=== PATIENT | female | born 1990 | race Caucasian/White ===

== ENCOUNTER → 2016-10-30 | Outpatient (CLI) | payer BC, OTHER ==
[~2016-10-30] MED LIST: CYCL10TA6 PO; FAMO40TA6 PO; HYDR-5688 PO; LEVO175T PO; LVNIS40 SQ; PRENTAB26 PO; PRLSR20 PO; RANI300T PO
[2016-10-30 18:09] LABS: THYROID STIMULATING HORMONE 0.007 uIu/ml (0.300-4.500)
== END | disposition home or self-care (01) ==
LOC: C.LAB 16:33
PROVIDERS: ATTEND Internal Medicine Endocrinology, Diabetes & Metabolism
DX: E03.9 Hypothyroidism, unspecified (principal); E55.9 Vitamin D deficiency, unspecified; R00.2 Palpitations; Z3A.33 33 weeks gestation of pregnancy

== ENCOUNTER → 2017-01-05 | Outpatient (CLI) | payer BC, OTHER ==
[2017-01-05 18:49] LABS: BASO % 0.6 %; BASO ABS # 0.03 K/uL (0-0.2); COMPLETE YES; IG% 0.4 %; LYMPH ABS # 1.82 K/uL (1.2-3.4); MEAN CELL VOLUME 83.7 fL (80-100); MEAN CORPUSCULAR HEMOGLOBIN 30.2 pg (25-34); MEAN CORPUSCULAR HGB CONC 36.1 g/dl (32-36); MEAN PLATELET VOLUME 9.3 fL (7.4-10.4); MONO % 11.5 %; NEUT % 47.5 %; PLATELET COUNT 268 K/uL (130-400); RED BLOOD COUNT 4.54 M/uL (4.2-5.4); WHITE BLOOD COUNT 5.05 K/uL (4.8-10.8)
[2017-01-05 19:26] LABS: FERRITIN 16.1 ng/ml (8.0-388.0)
--- NOTE | 2017-01-21 09:17 | CODING QUERY MEDICAL NECESSITY ---
CQSUPPORTING DIAGNOSIS NEEDED A supporting diagnosis is required for the test/procedure performed on this patient in order for us to be reimbursed by the patient's insurance. Please provide a supporting diagnosis for the following test/procedure listed below next to the test name along with your signature. *If there is no additional diagnosis for this patient that would support the following test/procedure please document that below next to the test/procedure. Test(s)/Procedure(s) that require a supporting diagnosis: DOS 01/05/17 VITAMIN B12 TEST Provider Signature: Date: Thank you Sussy Tyson [employer] [facility] Once completed, please kindly fax back to [phone] For questions please call [phone]
== END | disposition home or self-care (01) ==
LOC: C.LAB 18:04
PROVIDERS: ATTEND Nurse Practitioner
DX: D64.9 Anemia, unspecified (principal)

== ENCOUNTER → 2017-01-05 | Outpatient (CLI) | payer BC, OTHER ==
[2017-01-05 19:42] LABS: BLOOD UREA NITROGEN 11 mg/dl (7-18); BUN/CREATININE RATIO 13.2 (10-20); CARBON DIOXIDE 29 mmol/L (21-32); CHLORIDE 108 mmol/L (98-107); CREATININE 0.85 mg/dl (0.60-1.20); GLUCOSE 80 mg/dl (70-99); POTASSIUM 4.1 mmol/L (3.5-5.1); SODIUM 145 mmol/L (136-145)
[2017-01-05 19:53] LABS: THYROID STIMULATING HORMONE 0.142 uIu/ml (0.300-4.500)
[2017-01-05 20:46] LABS: CALCIUM 9.3 mg/dl (8.5-10.1)
== END | disposition home or self-care (01) ==
LOC: C.LAB 18:06
PROVIDERS: ATTEND Internal Medicine Endocrinology, Diabetes & Metabolism
DX: E55.9 Vitamin D deficiency, unspecified (principal); R00.2 Palpitations

== ENCOUNTER → 2017-02-03 | Outpatient (CLI) | payer BC, OTHER ==
[2017-02-08 18:34] LABS: VIT E ALPHA-TOCOPHEROL 10.4 mg/L (5.7-19.9); VIT E BETA&GAMMA-TOCOPHEROL 2.1 mg/L (<=4.3)
--- NOTE | 2017-02-20 06:08 | CODING QUERY MEDICAL NECESSITY ---
CQSUPPORTING DIAGNOSIS NEEDED A supporting diagnosis is required for the test/procedure performed on this patient in order for us to be reimbursed by the patient's insurance. Please provide a supporting diagnosis for the following test/procedure listed below next to the test name along with your signature. *If there is no additional diagnosis for this patient that would support the following test/procedure please document that below next to the test/procedure. Test(s)/Procedure(s) that require a supporting diagnosis: DOS 02/03/17 VITAMIN D Provider Signature: Date: Thank you Sussy Tyson [employer] Once completed, please kindly fax back to [phone] For questions please call [phone]
== END | disposition home or self-care (01) ==
LOC: C.LAB 13:19
PROVIDERS: ATTEND Internal Medicine
DX: K52.9 Noninfective gastroenteritis and colitis, unspecified (principal); E55.9 Vitamin D deficiency, unspecified

== ENCOUNTER 2017-05-18 12:15 | Emergency (ER) | payer BC, OTHER ==
[~2017-05-18] VITALS: Ht 157.5 cm; Wt 87.0 kg
[~2017-05-18 12:15] MED LIST changes: -CYCL10TA6 PO; -HYDR-5688 PO; -PRLSR20 PO
[2017-05-18 12:22] VITALS: TEMP 36.4; Ht 157.5 cm; Wt 87.0 kg
[2017-05-18] MEDS ORDERED: PRLSR20 PO (12:27)
--- NOTE | 2017-05-18 13:33 | DIAGNOSTIC IMAGING REPORT ---
PELVIS 1 OR 2 VIEW ROUTINE CLINICAL HISTORY: 26 years-old Female presenting with L sacroilliac jt pain. TECHNIQUE: Single frontal view of the pelvis was obtained. COMPARISON: Correlation made to CT of the abdomen and pelvis from 06/13/2015. FINDINGS: Hip joints congruent. No significant degenerative change. No acute fracture or malalignment. Pubic symphysis and sacroiliac joints congruent. Specifically, the left sacroiliac joint is normal appearing. Normal lower lumbar spine. Moderate stool burden in the colon. IMPRESSION: No osseous abnormality of the pelvis. Specifically, normal-appearing sacroiliac joints. Electronically signed by: Rikki Gauthier M.D. 05/18/2017 1:32 PM Dictated Date/Time: 05/18/2017 1:30 PM
[2017-05-18] MEDS ORDERED: HYDR-5688 PO (14:16)
[2017-05-18] MEDS ORDERED: CYCL10TA6 PO (14:16)
[2017-05-18 14:23] VITALS: BP 113/73; PULSE 80; O2SAT 98
--- NOTE | 2017-05-19 07:19 | EMERGENCY ROOM VISIT NOTE ---
ED Visit Note First contact with patient: 12:38 Chief Complaint: Left hip pain. History of Present Illness: Ms. Berrios is a 26-year-old white female who ambulates into the ED complaining of left hip pain. Historically she reports she's no significant previous back injuries or surgeries. Patient reports she was feeling fine until last evening. She reports she bent down the pickup her daughter and felt a popping sensation over the posterior left pelvis area and developed severe back pain. She reports she was seen at a chiropractors office today who made multiple adjustments and suggested that she come into the emergency department for evaluation of a possible muscle or ligamentous injury. Currently she places her discomfort over the left sacroiliac joint. She describes her pain as a sharp sensation. She rates her discomfort 8/10. Her pain is nonradiating. Her pain worsens with all movement of the lumbar and sacroiliac joint movements including flexion, extension and lateral bending of the waist and palpation. She has not identified any alleviating factors related to the pain. She reports she has been taken ibuprofen without relief of her discomfort. She denies any associated symptoms including fevers, chills , sweats, recent trauma to this area, abdominal pain, nausea, vomiting, diarrhea , constipation, rectal bleeding, black/tarry stools, urinary symptoms, hematuria , vaginal bleeding, vaginal discharge, genital paresthesias, bowel and bladder dysfunction, lower extremity weakness/numbness/tingling. Review of Systems: As noted above in history of present illness. 8 body systems were reviewed and found to be negative as noted above. Past Medical History: As previously noted and pulmonary embolism, polycystic ovary syndrome, hypothyroidism, hyperinsulinemia, gastroparesis, pancreatitis, anxiety and status post cholecystectomy. Current Medications: Synthroid, Zantac, Pepcid, Prilosec. Allergies to Medications: Penicillin, metoclopramide. Social History: Patient feels safe in her home environment; she denies tobacco use. Physical Examination: Vital Signs: Date Time Temp Pulse Resp B/P (MAP) Pulse Ox O2 Delivery O2 Flow Rate FiO2 05/18/17 14:23 80 18 113/73 98 05/18/17 12:22 36.4 100 18 130/85 100 Room Air GENERAL: 26-year-old female in mild to moderate distress due to pain, nontoxic- appearing, afebrile and hemodynamically stable. NEUROLOGICAL: Awake, alert and oriented to person, place and time. Answering questions appropriately and following commands. Normal gait. No focal motor or sensory deficits. SKIN: Warm, dry and pink. No soft tissue eruptions or trauma noted. BACK: No tenderness over the bony thoracic or lumbar spine. Mild tenderness and muscle spasm over the left lumbar paraspinous culture. Moderate tenderness over the left sacroiliac joint without bony deformity, bony crepitus, swelling or erythema. Decreased range of motion in all movements at the waist due to pain. Negative straight leg raise test. No CVA tenderness. THORAX: Lungs sounds are clear to auscultation and equal bilaterally with symmetrical chest wall. ABDOMEN: Flat, soft and nontender. Positive bowel sounds in all quadrants. No guarding, rigidity or organomegaly. LOWER EXTREMITIES: No deformity. No shortening or malrotation. No tenderness , inflammation, erythema or edema around the left hip. She had full range of motion of the hips without pain. Moves all extremities well on command and with purpose. 2+ patellar and Achilles tendon reflexes intact and equal bilaterally. 4/5 muscle strength in hip flexion, extension, abduction and abduction, knee flexion and extension, plantar flexion and dorsiflexion of the ankles. Distal pulses and capillary refill are intact. Patient was able to do sting was slight sensations to all dermatomes of the feet. ED Course: Patient is assessed as noted above. Patient's medication list was reviewed. Pelvis X-Rays: Were read by myself and the radiologist showing no acute fractures or dislocations. Radiologist specifically reported he said no disease processes around the sacroiliac joints. Patient was educated about today's findings and instructed on her treatment plan ; she verbalized understanding and agreement with this plan. Clinical Impression: Left sacroiliac joint pain. Lumbar paraspinous muscle spasm. Decision-Making: Initially my differential diagnosis I considered muscle strain , muscle spasm, disc herniation, septic hip, bursitis and other causes. Disposition: Patient discharged home accompanied by female friends; prior to departure she was reassessed and subjectively reported she was feeling the same and rated her discomfort 8/10. Plan: Comfort measures were discussed with the patient including ice, sliding pain scale of ibuprofen, acetaminophen and [place], a prescription for muscle relaxants ; Flexeril, proper lifting and moving techniques. Patient was given appropriate precautions for narcotic use and her name was checked in the state database and no red flags were noted. Patient was encouraged to contact her PCP and request follow-up care and treatment. Patient was encouraged return ED for worsening/uncontrolled pain, fevers, abdominal pain, genital paresthesias, bowel and bladder dysfunction, lower extremity weakness/numbness/tingling or any new/concerning symptoms.
== END 2017-05-18 14:20 | disposition home or self-care (01) ==
LOC: C.EDB 12:19 → C.EDD 14:20
DX: M53.3 Sacrococcygeal disorders, not elsewhere classified (principal); Z86.711 Personal history of pulmonary embolism; E28.2 Polycystic ovarian syndrome; E03.9 Hypothyroidism, unspecified; E16.1 Other hypoglycemia; K31.84 Gastroparesis; F41.9 Anxiety disorder, unspecified; Z90.49 Acquired absence of other specified parts of digestive tract; Z79.899 Other long term (current) drug therapy

== ENCOUNTER 2017-08-04 08:26 | Day surgery (SDC) | payer BC, OTHER ==
[~2017-08-04 08:26] MED LIST changes: +HYDR-5688 PO; -LVNIS40 SQ; -PRENTAB26 PO; +PRLSR20 PO
[2017-10-30] MEDS ORDERED: METF500T5 PO (08:30)
[2017-10-30] MEDS ORDERED: ERGO500037 PO (08:30)
[2017-10-30] MEDS ORDERED: HYOS1TAB PO (08:30)
[2017-10-30] MEDS ORDERED: NORE0.3526 PO (08:30)
== END 2017-11-19 10:14 | disposition home or self-care (01) ==
LOC: C.MTU 08:26
PROVIDERS: ATTEND Internal Medicine
DX: R19.7 Diarrhea, unspecified (principal); Z53.8 Procedure and treatment not carried out for other reasons

== ENCOUNTER → 2017-10-12 | Outpatient (CLI) | payer OTHER ==
[2017-10-12 13:43] LABS: ALBUMIN 4.2 gm/dl (3.4-5.0); ALT/SGPT 25 U/L (12-78); AST/SGOT 16 U/L (15-37); BLOOD UREA NITROGEN 8 mg/dl (7-18); CALCIUM 9.4 mg/dl (8.5-10.1); CARBON DIOXIDE 26 mmol/L (21-32); CREATININE 0.85 mg/dl (0.60-1.20); GLUCOSE 83 mg/dl (70-99); GLUCOSE,FASTING 83 mg/dl (70-99); POTASSIUM 3.5 mmol/L (3.5-5.1); SODIUM 136 mmol/L (136-145)
[2017-10-12 13:52] LABS: ALKALINE PHOSPHATASE 93 U/L (45-117); CHOLESTEROL 171 mg/dl (0-200); LDL CHOLESTEROL CALCULATED 93 mg/dl; TOTAL PROTEIN 8.1 gm/dl (6.4-8.2)
== END | disposition home or self-care (01) ==
LOC: C.LAB1850 11:40
PROVIDERS: ATTEND Obstetrics & Gynecology
DX: N92.6 Irregular menstruation, unspecified (principal); E28.2 Polycystic ovarian syndrome; E03.9 Hypothyroidism, unspecified; E55.9 Vitamin D deficiency, unspecified

== ENCOUNTER → 2017-10-30 | Day surgery (SDC) | payer OTHER ==
[~2017-10-30] VITALS: Ht 157.5 cm; Wt 89.0 kg
[~2017-10-30] MED LIST changes: +COSYNTROPIN INJ 250 MCG in SYRINGE 0 ML IM SCH; +ERGO500037 PO; +HYOS1TAB PO; +METF500T5 PO; +NORE0.3526 PO
[2017-10-30 08:23] VITALS: BP 109/73; PULSE 86; TEMP 36.3; O2SAT 99; Ht 157.5 cm; Wt 89.0 kg
[2017-10-30 09:04] VITALS: BP 102/67; PULSE 69; TEMP 37; O2SAT 98
[2017-10-30 09:37] VITALS: BP 117/71; PULSE 78; TEMP 37.1; O2SAT 100
== END | disposition home or self-care (01) ==
LOC: C.MTU 08:07
PROVIDERS: ATTEND Internal Medicine Endocrinology, Diabetes & Metabolism
DX: R53.83 Other fatigue (principal); E03.9 Hypothyroidism, unspecified; E28.2 Polycystic ovarian syndrome

== ENCOUNTER → 2018-01-05 | Outpatient (CLI) | payer OTHER ==
[~2018-01-05] MED LIST changes: -COSYNTROPIN INJ 250 MCG in SYRINGE 0 ML IM SCH; -HYDR-5688 PO
== END | disposition home or self-care (01) ==
LOC: C.LAB1850 09:16
PROVIDERS: ATTEND Internal Medicine Endocrinology, Diabetes & Metabolism
DX: E28.2 Polycystic ovarian syndrome (principal); E03.9 Hypothyroidism, unspecified

== ENCOUNTER → 2018-01-11 | Outpatient (CLI) | payer OTHER | END | disposition home or self-care (01) | LOC: C.LAB1850 16:23 | PROVIDERS: ATTEND Internal Medicine Endocrinology, Diabetes & Metabolism | DX: E55.9 Vitamin D deficiency, unspecified (principal) ==

== ENCOUNTER 2020-08-08 21:00 | Inpatient (IN) ==
[2020-08-08] MEDS ORDERED: SODIUM CHLORIDE 0.9% 1000ML 1,000 ML IV ONE (21:35)
--- NOTE | 2020-08-08 22:22 | Emergency Department Note ---
History of Present Illness General Chief complaint: Flank Pain Stated complaint: flank pain, hx blood clots, pending covid Time Seen by Provider: 08/08/20 21:11 History of Present Illness Maximum Pain Intensity: 6 This patient is a 29-year-old female who presents ambulatory to the emergency department for evaluation of left-sided chest pain that has been getting progressively worse over the last several days. The pain is on the left and radiates to the left ribs. She has not taken anything for the discomfort. The pain is worse with deep inspiration. She denies any cough or fever. She currently has a Covid test pending. She denies any leg pain or trauma. No recent travel Home Medications Medication Instructions Recorded Confirmed Type bupropion HCl [Wellbutrin XL] 300 mg PO QAM 03/03/19 08/08/20 History cyclobenzaprine 10 mg PO BID PRN 03/03/19 08/08/20 History famotidine 40 mg PO HS 03/03/19 08/08/20 History fluocinonide 1 applic TOPICAL BID PRN 03/03/19 08/08/20 History hyoscyamine sulfate 0.25 mg PO QID PRN 03/03/19 08/08/20 History ketoconazole 1 applic TOPICAL DAILY 03/03/19 08/08/20 History medroxyprogesterone 150 mg IM DIRECTED 03/03/19 08/08/20 History multivitamin 1 tab PO DAILY 03/03/19 08/08/20 History omeprazole 20 mg PO BID 03/03/19 08/08/20 History gabapentin 300 mg capsule 600 mg PO BID cap 09/08/19 08/08/20 History naproxen 500 mg tablet 500 mg PO BID 09/08/19 08/08/20 History ondansetron 4 mg PO Q6H PRN #15 tab 09/16/19 08/08/20 Rx Levoxyl 150 mcg tablet 150 mcg PO DAILY #30 tab NS 04/04/20 08/08/20 Rx cholecalciferol (vitamin D3) 1,250 mcg PO WK 07/12/20 08/08/20 History ipratropium bromide 42 mcg (0.06 2 spray INTRANASAL DAILY #15 ml 07/20/20 08/08/20 Rx %) nasal spray cefdinir 300 mg PO Q12 08/08/20 08/08/20 History Allergies Allergy/AdvReac Type Severity Reaction Status Date / Time egg Allergy Severe ANAPHYLAXIS Verified 08/08/20 22:06 Penicillins Allergy Intermediate RASH Verified 08/08/20 22:06 Sulfa (Sulfonamide Allergy Mild Rash Verified 08/08/20 22:06 Antibiotics) metoclopramide AdvReac Mild SHAKY Verified 08/08/20 22:06 Past Med/Surg History Medical History Abnormal menses Acute pancreatitis (12/16/12) Anemia Ankylosing spondylitis Class 2 obesity in adult Depressive disorder, not elsewhere classified (12/16/12) Encounter for visit Encounter for routine gynecological examination with Papanicolaou smear of cervix Fatigue Gastro-esophageal reflux disease with esophagitis (12/16/12) Gastroparesis Jess's disease High risk medication use History of pulmonary embolus (PE) Hypothyroidism Irritable bowel syndrome (12/16/12) Labor established (08/02/13) Laryngopharyngeal reflux Obesity Other pulmonary embolism and infarction (12/16/12) Palpitations PCOS (polycystic ovarian syndrome) Polycystic ovaries (12/16/12) Sensorineural hearing loss (SNHL) of right ear with unrestricted hearing of left ear Tachycardia Vitamin D deficiency Vulvovaginitis Surgical History History of arthroscopy History of knee surgery Meniscus repair left - 2016,2019 Meniscus repair right - 2009, 2011 History of surgery on wrist History of tooth extraction Hx of cholecystectomy Family History Grandmother (Maternal) Breast cancer Mother Hypertension Asthma Grandmother Hypertension Cancer Father Hearing loss Other Coronary heart disease Diabetes Dyslipidemia No family history of adverse response to anesthesia No family history of bleeding disorder No pertinent family history in first degree relatives Social History Smoking Status: Never smoker Second Hand Exposure: No; Hx Alcohol Use: No Hx Substance Use: No Preferred Language: Pashto Communication Ability: Effective Advertising Operations Coordinator Required: No Beliefs That Will Affect Care: None marital status: Current Living Situation: Spouse current occupational status: employed 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 Feels Safe at Home: Yes Assistive Devices: None Review of Systems A total of 10 systems reviewed and were otherwise negative Physical Exam Vital Signs Vital Signs - 24 hr 08/08/20 21:02 Temperature 36.9 C Temperature Source Oral Pulse Rate 122 H Respiratory Rate 18 Respiratory Effort / Characteristics Non-Labored Spontaneous Respiratory Depth Normal Respiratory Pattern Regular Blood Pressure 161/114 H Blood Pressure Mean 129 Blood Pressure Position Sitting Pulse Oximetry 97 Oxygen Delivery Method Room Air Sepsis Recent Fever Within 48 Hours No Sepsis New/Unexplained Change in Mental Status N/A Sepsis Action Taken by Nursing No Action Required Constitutional WD/WN, vitals as above Eyes EOM intact bilaterally ENMT external ear and nose normal, oropharynx normal Neck trachea midline Respiratory normal respiratory effort, lungs clear to auscultation Cardiovascular Rate/Rhythm: + tachycardic no murmur noted Gastrointestinal (Abdomen) normal bowel sounds, soft, nontender, no hepatosplenomegaly Musculoskeletal no cyanosis or clubbing, extremities motor strength 5/5 Skin no rashes, warm and dry Neurologic Alert and oriented x3. No focal motor deficits. Psychiatric Acting appropriately Course Course Patient was seen and examined Vital signs including blood pressure were reviewed medications list was verified with patient Labs were obtained, and a saline lock was established An order was placed for continuous cardiac monitoring. The monitor shows a rate of a rate of 109 bpm with sinus tachycardia rhythm. Imaging was performed the patient was Reassessed. We discussed her work-up thus far. At this point, the patient has imaging studies pending. The case was signed out to my colleague, Angel Alonso PA-C. Please see his note for disposition. Administered Medications Acetaminophen (Acetaminophen 325 Mg Tab) 650 mg PO Q4H PRN PRN Reason: pain/fever Stop: 09/08/20 05:11 Last Admin: 08/10/20 10:53 Dose: 650 mg Documented by: [id number] Admin: 08/10/20 06:01 Dose: 650 mg Documented by: [id number] Admin: 08/09/20 20:54 Dose: 650 mg Documented by: [id number] Bupropion HCl (Bupropion Xl 300 Mg Tabcr) 300 mg PO QAM [facility] Stop: 09/08/20 08:59 Last Admin: 08/10/20 08:33 Dose: 300 mg Documented by: [id number] Admin: 08/09/20 08:36 Dose: 300 mg Documented by: [id number] Calcium Carbonate (Calcium Carbonate 500 Mg Chewable Tab) 500 mg PO Q8 PRN PRN Reason: Indigestion Stop: 09/08/20 08:24 Last Admin: 08/09/20 08:35 Dose: 500 mg Documented by: [id number] Cefdinir (Cefdinir 300 Mg Cap) 300 mg PO Q12 SYED Stop: 08/19/20 08:59 Last Admin: 08/10/20 08:32 Dose: 300 mg Documented by: [id number] Admin: 08/09/20 20:42 Dose: 300 mg Documented by: [id number] Admin: 08/09/20 08:35 Dose: 300 mg Documented by: [id number] Famotidine (Famotidine 40 Mg Tablet) 40 mg PO HS SYED Stop: 09/08/20 20:59 Last Admin: 08/09/20 20:42 Dose: 40 mg Documented by: [id number] Gabapentin (Gabapentin 300 Mg Cap) 600 mg PO BID SYED Stop: 09/08/20 08:59 Last Admin: 08/10/20 08:32 Dose: 600 mg Documented by: [id number] Admin: 08/09/20 20:42 Dose: 600 mg Documented by: [id number] Admin: 08/09/20 08:36 Dose: 600 mg Documented by: [id number] Ipratropium [place] (Ipratropium [place] Nasal [place] 0.06% 15ml) 2 sprays NA DAILY SYED Stop: 09/08/20 08:59 Last Admin: 08/10/20 08:25 Dose: Not Given Documented by: [id number] Admin: 08/09/20 08:36 Dose: Not Given Documented by: [id number] Levothyroxine Sodium (Levothyroxine Sodium 150 Mcg Tablet) 150 mcg PO DAILYBB SYED Stop: 09/08/20 06:29 Last Admin: 08/10/20 05:59 Dose: 150 mcg Documented by: [id number] Admin: 08/09/20 05:31 Dose: 150 mcg Documented by: [id number] Morphine Sulfate (Morphine Sulfate 2 Mg/Ml Carp) 2 mg IV Q4H PRN PRN Reason: Pain Stop: 08/23/20 05:11 Last Admin: 08/09/20 22:19 Dose: 2 mg Documented by: [id number] Ondansetron HCl (Ondansetron Inj 2 Mg/Ml 2 Ml Vial) 4 mg IV Q4H PRN PRN Reason: Nausea Stop: 09/08/20 05:16 Last Admin: 08/10/20 08:32 Dose: 4 mg Documented by: [id number] Admin: 08/10/20 03:25 Dose: 4 mg Documented by: [id number] Admin: 08/09/20 20:55 Dose: 4 mg Documented by: [id number] Admin: 08/09/20 08:35 Dose: 4 mg Documented by: [id number] Admin: 08/09/20 05:32 Dose: 4 mg Documented by: [id number] Pantoprazole Sodium (Pantoprazole 40 Mg Tab) 40 mg PO BID [facility] Stop: 09/08/20 08:59 Last Admin: 08/10/20 08:32 Dose: 40 mg Documented by: [id number] Admin: 08/09/20 20:43 Dose: 40 mg Documented by: [id number] Admin: 08/09/20 08:35 Dose: 40 mg Documented by: [id number] Rivaroxaban (Rivaroxaban 15 Mg Tab) 15 mg PO BIDM [facility] Stop: 08/30/20 16:59 Last Admin: 08/10/20 08:32 Dose: 15 mg Documented by: [id number] Admin: 08/09/20 17:16 Dose: 15 mg Documented by: [id number] Discontinued Medications Calcium Carbonate (Calcium Carbonate 500 Mg Chewable Tab) Confirm Administered Dose 500 mg .ROUTE .STK-MED ONE Stop: 08/09/20 08:32 Last Admin: 08/09/20 08:37 Dose: Not Given Documented by: [id number] Heparin Sodium (Porcine) (Heparin Sod (Porcine) 1000 Unit/Ml 10 Ml Vial) Confirm Administered Dose 10,000 units .ROUTE .STK-MED ONE Stop: 08/09/20 01:11 Last Admin: 08/09/20 01:15 Dose: 5,000 units Documented by: [id number] Cosigned by: [id number] Heparin Sodium/Dextrose (Heparin Iv Standard With Bolus) 1 ea IV NOW STA; Protocol Stop: 08/09/20 01:02 Last Admin: 08/09/20 01:15 Dose: 1 ea Documented by: [id number] Sodium Chloride (Nss 1000ml) 1,000 mls @ 999 mls/hr IV .Q1H1M ONE Stop: 08/08/20 22:35 Last Infusion: 08/08/20 23:20 Dose: 0 mls/hr Documented by: [id number] Admin: 08/08/20 22:12 Dose: 999 mls/hr Documented by: [id number] Heparin Sodium/Dextrose (Heparin Sodium/Dextrose) 25,000 units in 500 mls @ 19 mls/hr IV .Q24H SYED; Protocol Stop: 08/09/20 17:00 Last Titration: 08/09/20 17:16 Dose: 0 units/hr, 0 mls/hr Documented by: [id number] Cosigned by: [id number] Titration: 08/09/20 10:30 Dose: 950 units/hr, 19 mls/hr Documented by: [id number] Cosigned by: [id number] Titration: 08/09/20 08:00 Dose: 0 units/hr, 0 mls/hr Documented by: [id number] Cosigned by: [id number] Titration: 08/09/20 06:54 Dose: 1,200 units/hr, 24 mls/hr Documented by: [id number] Cosigned by: [id number] Admin: 08/09/20 01:29 Dose: 1,200 units/hr, 24 mls/hr Documented by: [id number] Cosigned by: [id number] Sodium Chloride (Nss 1000ml) 1,000 mls @ 80 mls/hr IV .[id number] SYED Stop: 09/08/20 08:29 Last Infusion: 08/10/20 11:32 Dose: 0 mls/hr Documented by: [id number] Admin: 08/10/20 08:33 Dose: 80 mls/hr Documented by: [id number] Infusion: 08/10/20 08:33 Dose: 80 mls/hr Documented by: [id number] Admin: 08/09/20 20:55 Dose: 80 mls/hr Documented by: [id number] Infusion: 08/09/20 20:55 Dose: 80 mls/hr Documented by: [id number] Admin: 08/09/20 08:36 Dose: 80 mls/hr Documented by: [id number] Prochlorperazine 5 mg/ Syringe 5 mls @ 5 mls/min IV ONE ONE Stop: 08/10/20 09:01 Last Admin: 08/10/20 10:49 Dose: 5 mls/min Documented by: [id number] Ioversol (Optiray 320 125ml) 119 ml IV ONCE ONE Stop: 08/08/20 22:59 Last Admin: 08/08/20 22:58 Dose: 119 ml Documented by: [id number] Miscellaneous (Heparin Drip - Stop Order) 1 ea N/A 1700 ONE Stop: 08/09/20 17:01 Last Admin: 08/09/20 17:16 Dose: 1 ea Documented by: [id number] Morphine Sulfate (Morphine Sulfate 4 Mg/Ml 1 Ml Carp\Vial) 4 mg IV NOW STA Stop: 08/09/20 00:27 Last Admin: 08/09/20 00:43 Dose: 4 mg Documented by: [id number] Ondansetron HCl (Ondansetron Inj 2 Mg/Ml 2 Ml Vial) 4 mg IV NOW STA Stop: 08/09/20 00:27 Last Admin: 08/09/20 00:43 Dose: 4 mg Documented by: [id number] Potassium Chloride (Potassium Chloride Crtab 20 Meq Tabcr) 40 meq PO NOW STA Stop: 08/09/20 05:13 Last Admin: 08/09/20 05:31 Dose: 40 meq Documented by: [id number] Prednisone (Prednisone 20 Mg Tab) 20 mg PO ONE ONE Stop: 08/10/20 09:01 Last Admin: 08/10/20 10:49 Dose: 20 mg Documented by: [id number] Medical Decision Making Medical Records Attestation: I reviewed the patient's medical records. Home Medications Current Medication List: was personally reviewed by me Laboratory Data Attestation: I reviewed the patient's lab results. Result diagrams: 08/10/20 07:38 08/10/20 07:38 Lab Results 08/08/20 08/08/20 08/08/20 Range/Units 22:07 22:07 22:07 WBC 8.73 (4.8-10.8) K/uL RBC 4.83 (4.2-5.4) M/uL Hgb 15.0 (12.0-16.0) g/dL Hct 42.5 (37-47) % MCV 88.0 (80-100) fL MCH 31.1 (25-34) pg MCHC 35.3 (32-36) g/dL RDW Std Deviation 39.9 (36.4-46.3) fL RDW Coeff of Axel 12.5 (11.5-14.5) % Plt Count 282 (130-400) K/uL MPV 9.7 (7.4-10.4) fL Immature Gran % (Auto) 0.5 % Neut % (Auto) 68.6 % Lymph % (Auto) 19.5 % [place] % (Auto) 9.5 % Eos % (Auto) 1.7 % Baso % (Auto) 0.2 % Neut # (Auto) 5.99 (1.4-6.5) K/uL Lymph # (Auto) 1.70 (1.2-3.4) K/uL [place] # (Auto) 0.83 H (0.11-0.59) K/uL Eos # (Auto) 0.15 (0-0.5) K/uL Baso # (Auto) 0.02 (0-0.2) K/uL Immature Gran # (Auto) 0.04 H (0.00-0.02) K/uL PT 11.0 (9.0-12.0) Seconds INR 1.0 (0.9-1.1) APTT (21.0-31.0) Seconds PTT Ratio Sodium 141 (136-145) mmol/L Potassium 3.4 L (3.5-5.1) mmol/L Chloride 107 (98-107) mmol/L Carbon Dioxide 27 (21-32) mmol/L Anion Gap 7.0 (3-11) BUN 14 (7-18) mg/dl Creatinine 1.05 (0.6-1.2) mg/dl Est Cr Clr Drug Dosing 82.1 ml/min Est GFR ( Amer) 82.5 Est GFR (Non-Af Amer) 71.2 BUN/Creatinine Ratio 13.2 (10-20) Glucose 94 (70-99) mg/dl Calcium 9.8 (8.5-10.1) mg/dl Magnesium 2.3 (1.8-2.4) mg/dl Total Bilirubin 2.9 H (0.2-1) mg/dl AST 14 L (15-37) U/L ALT 28 (12-78) U/L Alkaline Phosphatase 109 (45-117) U/L Troponin I < 0.015 (0-0.045) ng/ml Total Protein 8.4 H (6.4-8.2) gm/dl Albumin 4.4 (3.4-5.0) gm/dl Globulin 4.0 (2.5-4.0) gm/dl Albumin/Globulin Ratio 1.1 (0.9-2) HCG, Qual (Negative) Urine Color Urine Appearance (Clear) Urine pH (4.5-7.5) Ur Specific [place] (1.000-1.030) Urine Protein (Negative) Urine Glucose (UA) (Negative) Urine Ketones (Negative) Urine Blood (Negative) Urine Nitrite (Negative) Urine Bilirubin (Negative) Urine Urobilinogen (Negative) Ur Leukocyte Esterase (Negative) Urine Opiates Screen (Neg) Ur Methadone, Qual (Neg) Urine Barbiturates (Neg) Ur Phencyclidine (PCP) (Neg) U Amphetamin/Meth Scrn (Neg) MDMA (Ecstasy) Screen (Neg) U Benzodiazepines Scrn (Neg) Ur Cocaine Metabolite (Neg) U Marijuana (THC) Screen (Neg) SARS-CoV-2 Ag (Rapid) (Negative) 08/08/20 08/08/20 08/09/20 Range/Units 22:07 22:08 00:45 WBC (4.8-10.8) K/uL RBC (4.2-5.4) M/uL Hgb (12.0-16.0) g/dL Hct (37-47) % MCV (80-100) fL MCH (25-34) pg MCHC (32-36) g/dL RDW Std Deviation (36.4-46.3) fL RDW Coeff of Axel (11.5-14.5) % Plt Count (130-400) K/uL MPV (7.4-10.4) fL Immature Gran % (Auto) % Neut % (Auto) % Lymph % (Auto) % [place] % (Auto) % Eos % (Auto) % Baso % (Auto) % Neut # (Auto) (1.4-6.5) K/uL Lymph # (Auto) (1.2-3.4) K/uL [place] # (Auto) (0.11-0.59) K/uL Eos # (Auto) (0-0.5) K/uL Baso # (Auto) (0-0.2) K/uL Immature Gran # (Auto) (0.00-0.02) K/uL PT (9.0-12.0) Seconds INR (0.9-1.1) APTT (21.0-31.0) Seconds PTT Ratio Sodium (136-145) mmol/L Potassium (3.5-5.1) mmol/L Chloride (98-107) mmol/L Carbon Dioxide (21-32) mmol/L Anion Gap (3-11) BUN (7-18) mg/dl Creatinine (0.6-1.2) mg/dl Est Cr Clr Drug Dosing ml/min Est GFR ( Amer) Est GFR (Non-Af Amer) BUN/Creatinine Ratio (10-20) Glucose (70-99) mg/dl Calcium (8.5-10.1) mg/dl Magnesium (1.8-2.4) mg/dl Total Bilirubin (0.2-1) mg/dl AST (15-37) U/L ALT (12-78) U/L Alkaline Phosphatase (45-117) U/L Troponin I (0-0.045) ng/ml Total Protein (6.4-8.2) gm/dl Albumin (3.4-5.0) gm/dl Globulin (2.5-4.0) gm/dl Albumin/Globulin Ratio (0.9-2) HCG, Qual Negative (Negative) Urine Color Yellow Urine Appearance Clear (Clear) Urine pH 7.0 (4.5-7.5) Ur Specific [place] > 1.045 H (1.000-1.030) Urine Protein Negative (Negative) Urine Glucose (UA) Negative (Negative) Urine Ketones Negative (Negative) Urine Blood Negative (Negative) Urine Nitrite Negative (Negative) Urine Bilirubin Negative (Negative) Urine Urobilinogen Negative (Negative) Ur Leukocyte Esterase Negative (Negative) Urine Opiates Screen Neg (Neg) Ur Methadone, Qual Neg (Neg) Urine Barbiturates Neg (Neg) Ur Phencyclidine (PCP) Neg (Neg) U Amphetamin/Meth Scrn Neg (Neg) MDMA (Ecstasy) Screen Neg (Neg) U Benzodiazepines Scrn Neg (Neg) Ur Cocaine Metabolite Neg (Neg) U Marijuana (THC) Screen Neg (Neg) SARS-CoV-2 Ag (Rapid) (Negative) 08/09/20 08/09/20 Range/Units 01:17 01:23 WBC (4.8-10.8) K/uL RBC (4.2-5.4) M/uL Hgb (12.0-16.0) g/dL Hct (37-47) % MCV (80-100) fL MCH (25-34) pg MCHC (32-36) g/dL RDW Std Deviation (36.4-46.3) fL RDW Coeff of Axel (11.5-14.5) % Plt Count (130-400) K/uL MPV (7.4-10.4) fL Immature Gran % (Auto) % Neut % (Auto) % Lymph % (Auto) % [place] % (Auto) % Eos % (Auto) % Baso % (Auto) % Neut # (Auto) (1.4-6.5) K/uL Lymph # (Auto) (1.2-3.4) K/uL [place] # (Auto) (0.11-0.59) K/uL Eos # (Auto) (0-0.5) K/uL Baso # (Auto) (0-0.2) K/uL Immature Gran # (Auto) (0.00-0.02) K/uL PT (9.0-12.0) Seconds INR (0.9-1.1) APTT 25.4 (21.0-31.0) Seconds PTT Ratio 0.9 Sodium (136-145) mmol/L Potassium (3.5-5.1) mmol/L Chloride (98-107) mmol/L Carbon Dioxide (21-32) mmol/L Anion Gap (3-11) BUN (7-18) mg/dl Creatinine (0.6-1.2) mg/dl Est Cr Clr Drug Dosing ml/min Est GFR ( Amer) Est GFR (Non-Af Amer) BUN/Creatinine Ratio (10-20) Glucose (70-99) mg/dl Calcium (8.5-10.1) mg/dl Magnesium (1.8-2.4) mg/dl Total Bilirubin (0.2-1) mg/dl AST (15-37) U/L ALT (12-78) U/L Alkaline Phosphatase (45-117) U/L Troponin I (0-0.045) ng/ml Total Protein (6.4-8.2) gm/dl Albumin (3.4-5.0) gm/dl Globulin (2.5-4.0) gm/dl Albumin/Globulin Ratio (0.9-2) HCG, Qual (Negative) Urine Color Urine Appearance (Clear) Urine pH (4.5-7.5) Ur Specific [place] (1.000-1.030) Urine Protein (Negative) Urine Glucose (UA) (Negative) Urine Ketones (Negative) Urine Blood (Negative) Urine Nitrite (Negative) Urine Bilirubin (Negative) Urine Urobilinogen (Negative) Ur Leukocyte Esterase (Negative) Urine Opiates Screen (Neg) Ur Methadone, Qual (Neg) Urine Barbiturates (Neg) Ur Phencyclidine (PCP) (Neg) U Amphetamin/Meth Scrn (Neg) MDMA (Ecstasy) Screen (Neg) U Benzodiazepines Scrn (Neg) Ur Cocaine Metabolite (Neg) U Marijuana (THC) Screen (Neg) SARS-CoV-2 Ag (Rapid) Negative (Negative) Imaging Data Attestation: I personally reviewed and interpreted this imaging study as follows: Radiologist's Impression: CT chest for PE ECG Data Attestation: I personally reviewed and interpreted this ECG as follows: Indication: + chest pain Rate (beats per minute): 106 Rhythm: + sinus tachycardia Additional Comments: no ischemia, or ectopy. No change when compared to prior study in 2019 MDM Narrative Differential diagnosis: Bronchitis, pneumonia, PE, infectious etiology, gastritis, UTI, ureteral stone, bowel obstruction, pancreatitis, among others were considered This patient is a 29-year-old female resents emergency department with main complaint of left-sided chest pain and left upper abdominal pain. On exam, she was tachycardic. She was not hypoxic. She does a history of PE. Work-up was performed. She was put on a radiation monitor. An EKG was performed and shows a sinus tachycardia. Troponin was negative. Labs were fairly unremarkable. Given her history, I was concerned for possible infectious etiology, pulmonary embolus or ureteral stone. Imaging was performed and is at this point pending. Please see Angel Alonso's note for diagnosis and disposition Impression & Plan Left-sided chest pain, Left upper quadrant abdominal pain Discharge Plan Visit Data Chief Complaint: Flank Pain Stated Complaint: flank pain, hx blood clots, pending covid ED Provider: Robbin Vizcaino ED Midlevel Provider: Angel Alonso Discharge Problem: Left-sided chest pain, Left upper quadrant abdominal pain Patient Disposition: Admitted As Inpatient Condition: Good Discharge Instructions Interventions: ED Discharge Assessment Last Done: 08/09/20 04:13
[2020-08-08 22:25] LABS: Basophils # (auto) 0.02 K/uL (0-0.2); Basophils % (auto) 0.2 %; Eosinophils # (auto) 0.15 K/uL (0-0.5); Eosinophils % (auto) 1.7 %; Hematocrit (blood only) 42.5 % (37-47); Immature Granulocytes # (auto) 0.04 K/uL (0.00-0.02); Immature Granulocytes % (auto) 0.5 %; Lymphocytes % (auto) 19.5 %; Mean Corpuscular Hemoglobin 31.1 pg (25-34); Mean Corpuscular Hgb Conc 35.3 g/dL (32-36); Mean Platelet Volume 9.7 fL (7.4-10.4); Monocytes # (auto) 0.83 K/uL (0.11-0.59); Monocytes % (auto) 9.5 %; Neutrophils # (auto) 5.99 K/uL (1.4-6.5); Neutrophils % (auto) 68.6 %; Platelet Count 282 K/uL (130-400); RDW Coefficient of Variation 12.5 % (11.5-14.5); RDW Standard Deviation 39.9 fL (36.4-46.3); Red Blood Count 4.83 M/uL (4.2-5.4); White Blood Count 8.73 K/uL (4.8-10.8)
[2020-08-08 22:40] LABS: Pregnancy Test, Serum Negative (Negative)
[2020-08-08 22:44] LABS: Alanine Aminotransferase 28 U/L (12-78); Albumin Level 4.4 gm/dl (3.4-5.0); Aspartate Aminotransferase 14 U/L (15-37); BUN Creatinine Ratio 13.2 (10-20); Blood Urea Nitrogen 14 mg/dl (7-18); Calcium 9.8 mg/dl (8.5-10.1); Carbon Dioxide 27 mmol/L (21-32); Chloride 107 mmol/L (98-107); Creatinine Clr Calc Pharmacy 82.1 ml/min; Est GFR (African American) 82.5; Est GFR (Non-African American) 71.2; Glucose 94 mg/dl (70-99); Magnesium 2.3 mg/dl (1.8-2.4); Potassium 3.4 mmol/L (3.5-5.1); Sodium 141 mmol/L (136-145)
[2020-08-08 22:49] LABS: Albumin Globulin Ratio 1.1 (0.9-2); Alkaline Phosphatase 109 U/L (45-117); Bilirubin,Total 2.9 mg/dl (0.2-1); Total Protein 8.4 gm/dl (6.4-8.2); Troponin I < 0.015 ng/ml (0-0.045)
[2020-08-08] MEDS ORDERED: OPTIRAY 320 125ml IV ONE (22:58)
[2020-08-09 00:07] LABS: Amphetamines+Metham, Urine Neg (Neg); Barbiturates, Urine Neg (Neg); Benzodiazepine, Urine Neg (Neg); Cocaine, Urine Neg (Neg); MDMA (Ecstacy), Urine Neg (Neg); Methadone, Urine Neg (Neg); Opiate, Urine Neg (Neg); Phencyclidine, Urine Neg (Neg)
[2020-08-09] MEDS ORDERED: ONDANSETRON INJ 2 MG/ML 2 ML VIAL IV STA (00:26)
[2020-08-09] MEDS ORDERED: MoRPHine SULFATE 4 MG/ML 1 ML CARP\\VIAL IV STA (00:26)
[2020-08-09 00:54] LABS: Appearance Urine Clear (Clear); Bilirubin Urine Negative (Negative); Blood Urine Negative (Negative); Color Urine Yellow; Glucose Urine UA Negative (Negative); Ketones Urine Negative (Negative); Leukocyte Esterase Urine Negative (Negative); Nitrite Urine Negative (Negative); Protein Urine Negative (Negative); Specific Gravity Urine > 1.045 (1.000-1.030); Urobilinogen Urine Negative (Negative)
[2020-08-09] MEDS ORDERED: HEPARIN SOD (PORCINE) 1000 UNIT/ML 10 ML VIAL ONE (01:10)
[2020-08-09] MEDS ORDERED: HEPARIN SODIUM/DEXTROSE 25,000 UNITS/500 ML BAG IV SCH (01:15)
[2020-08-09 01:43] LABS: Partial Thromboplastin Ratio 0.9; Partial Thromboplastin Time 25.4 Seconds (21.0-31.0)
--- NOTE | 2020-08-09 01:50 | Emergency Department Note ---
ED Visit Note Patient case was signed out to me at 2300 hrs. on 08/09/[address] scan results of the chest, abdomen and pelvis. Patient was reevaluated and noted to be in increasing pain therefore IV pain analgesia as well as antiemetics were ordered. Patient was reevaluated with some improvement. The CT scan of the chest unfortunately does show a PE. Given the patient's persistent tachycardia in the setting of PE that clinically correlates with the patient's location of pain on examination I do feel that further evaluation and management in the inpatient setting is warranted. Case discussed with attending physician. Standard heparin IV/bolus ordered. Benefit versus risk of this medication discussed with the patient. Decided to proceed with heparinization. Case discussed with the hospitalist. Please refer to further documentation regarding her stay. CTA CHEST: Positive for PE involving left lower lobe segmental and subsegmental branches. Possible pulmonary infarct at the posterolateral aspect of the left lower lobe. No definite right heart strain. No saddle embolus. No pneumothorax or pleural effusions. No adenopathy. Heart size is normal. Aorta is unremarkable. Radiologist: Daniel Montanez M.D. Study ready at 00:01 and initial results transmitted at 00:25 Communications: Clear Time Type Notes 08/09/20 00:34 Call Doctor Regarding Above results, called Dr. Mariza Martinez report CT ABDOMEN & PELVIS Without Contrast: Airspace disease at the posterolateral aspect of the left lower lobe. Correlate clinically to exclude pneumonia. Prior cholecystectomy. No appendicitis, inflammatory changes of bowel or bowel obstruction. No free fluid. No free air. Aorta, liver, spleen, pancreas, and kidneys are unremarkable. Radiologist: Daniel Montanez M.D. Study ready at 23:51 and initial results transmitted at 00:17 .
--- NOTE | 2020-08-09 02:38 | History & Physical Report ---
Date of Service August 09, 2020 Assessment & Plan (1) Pulmonary embolism: Patient with acute PE, history of the same. HD stable, no respiratory distress. Pain is well controlled with IV morphine administered in ER. She reports having a hypercoagulable workup performed in the past. No history of miscarriages. No FHx of clotting disorders. -Heparin gtt -Morphine PRN pain -NOAC in AM. Patient may need lifelong anticoagulation seeing this is her second pulmonary embolism. -Awaiting SARS-CoV-2 test confirmation Present on Admission?: Yes (2) Chronic sinusitis, unspecified: Continue Cefdinir Continue nasal spray Present on Admission?: Yes (3) Hypothyroidism: Chronic -Continue Synthroid (4) GERD (gastroesophageal reflux disease): Chronic -Continue Pepcid -Continue Omeprazole F/E/N - Heplock. K repletion with 40mEq PO x 1, regular diet as tolerated Ppx - Heparin gtt as above Code - Full Dispo - Admit to medical with telemetry History of Present Illness Chief Complaint: left sided pleuritic chest pain Primary Care Provider: DO Michelle Martínez Agustina is a 29yo C female with history of prior PE - provoked in setting of surgery, depression, hypothyroidism presenting with left sided pleuritic peace pain. Pain has been ongoing for the last few days - most severe 10day. Located left side with radiation under breast. Mild non-productive cough, SOB. Patient recently put on Cefdinir for suspected rhinosinusitis. She has a Covid- 19 test pending. Allergies Allergy/AdvReac Type Severity Reaction Status Date / Time egg Allergy Severe ANAPHYLAXIS Verified 08/08/20 22:06 Penicillins Allergy Intermediate RASH Verified 08/08/20 22:06 Sulfa (Sulfonamide Allergy Mild Rash Verified 08/08/20 22:06 Antibiotics) metoclopramide AdvReac Mild SHAKY Verified 08/08/20 22:06 Home Medications Medication Instructions Recorded Confirmed Type bupropion HCl [Wellbutrin XL] 300 mg PO QAM 03/03/19 08/08/20 History cyclobenzaprine 10 mg PO BID PRN 03/03/19 08/08/20 History famotidine 40 mg PO HS 03/03/19 08/08/20 History fluocinonide 1 applic TOPICAL BID PRN 03/03/19 08/08/20 History hyoscyamine sulfate 0.25 mg PO QID PRN 03/03/19 08/08/20 History ketoconazole 1 applic TOPICAL DAILY 03/03/19 08/08/20 History medroxyprogesterone 150 mg IM DIRECTED 03/03/19 08/08/20 History multivitamin 1 tab PO DAILY 03/03/19 08/08/20 History omeprazole 20 mg PO BID 03/03/19 08/08/20 History gabapentin 300 mg capsule 600 mg PO BID cap 09/08/19 08/08/20 History naproxen 500 mg tablet 500 mg PO BID 09/08/19 08/08/20 History ondansetron 4 mg PO Q6H PRN #15 tab 09/16/19 08/08/20 Rx Levoxyl 150 mcg tablet 150 mcg PO DAILY #30 tab NS 04/04/20 08/08/20 Rx cholecalciferol (vitamin D3) 1,250 mcg PO WK 07/12/20 08/08/20 History ipratropium bromide 42 mcg (0.06 2 spray INTRANASAL DAILY #15 ml 07/20/20 08/08/20 Rx %) nasal spray cefdinir 300 mg PO Q12 08/08/20 08/08/20 History Past Med/Surg History Medical History (Updated 08/09/20 @ 02:50 by Lynnette Sanon DO) Abnormal menses Acute pancreatitis (12/16/12) Anemia Ankylosing spondylitis Class 2 obesity in adult Depressive disorder, not elsewhere classified (12/16/12) Encounter for visit Encounter for routine gynecological examination with Papanicolaou smear of cervix Fatigue Gastro-esophageal reflux disease with esophagitis (12/16/12) Gastroparesis Jess's disease High risk medication use History of pulmonary embolus (PE) Hypothyroidism Irritable bowel syndrome (12/16/12) Labor established (08/02/13) Laryngopharyngeal reflux Obesity Other pulmonary embolism and infarction (12/16/12) Palpitations PCOS (polycystic ovarian syndrome) Polycystic ovaries (12/16/12) Sensorineural hearing loss (SNHL) of right ear with unrestricted hearing of left ear Tachycardia Vitamin D deficiency Vulvovaginitis Surgical History History of arthroscopy History of knee surgery Meniscus repair left - 2017,2019 Meniscus repair right - 2011 History of surgery on wrist History of tooth extraction Hx of cholecystectomy Family History Grandmother (Maternal) Breast cancer Mother Hypertension Asthma Grandmother Hypertension Cancer Father Hearing loss Other Coronary heart disease Diabetes Dyslipidemia No family history of adverse response to anesthesia No family history of bleeding disorder No pertinent family history in first degree relatives Social History Smoking Status: Never smoker Second Hand Exposure: No; Hx Alcohol Use: No Hx Substance Use: No Preferred Language: Chinese marital status: Current Living Situation: Family current occupational status: employed 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 Feels Safe at Home: Yes Review of Systems Review of Systems: All systems reviewed & are unremarkable except as noted in HPI & below Physical Exam Physical Exam: General: patient resting comfortably, NAD, non-toxic in appearance, AA&O x 4 Skin: warm, dry, intact, no rashes or lesions HEENT: NC/AT, PERRL, EOMI, anicteric sclera, conjunctiva without injection, external ear normal to inspection and nontender, nares patent, moist mucus membranes, dentition intact, no oropharyngeal lesions, neck supple, trachea midline, no LAD, no thyromegaly, no JVD Heart: +S1/S2, regular, tachycardic, no m/r/g Lungs: equal air entry bilaterally, no rales/rhonchi/wheezes Abd: +BS, soft, NT/ND, no masses/organomegaly/ascites Ext: warm, 2+ pulses in UE/LE bilaterally, no clubbing/cyanosis or edema Neuro: nonfocal, patient AA&O x 4, speech intact, no facial droop, moving all extremities on command with equal strength 5/5 Results & Data Results & Data ([facility]) Vital Signs (Past 12 Hours) Vital Signs Temp Pulse Pulse Resp BP BP Pulse Ox 08/09/20 02:00 101 H 18 107/64 99 08/09/20 00:43 118 H 22 141/86 H 99 08/08/20 22:18 98 H 18 135/87 97 08/08/20 21:02 36.9 C 122 H 18 161/114 H 97 Laboratory Results Lab Results 08/08/20 08/08/20 08/08/20 Range/Units 22:07 22:07 22:07 WBC 8.73 (4.8-10.8) K/uL RBC 4.83 (4.2-5.4) M/uL Hgb 15.0 (12.0-16.0) g/dL Hct 42.5 (37-47) % MCV 88.0 (80-100) fL MCH 31.1 (25-34) pg MCHC 35.3 (32-36) g/dL RDW Std Deviation 39.9 (36.4-46.3) fL RDW Coeff of Axel 12.5 (11.5-14.5) % Plt Count 282 (130-400) K/uL MPV 9.7 (7.4-10.4) fL Immature Gran % (Auto) 0.5 % Neut % (Auto) 68.6 % Lymph % (Auto) 19.5 % [place] % (Auto) 9.5 % Eos % (Auto) 1.7 % Baso % (Auto) 0.2 % Neut # (Auto) 5.99 (1.4-6.5) K/uL Lymph # (Auto) 1.70 (1.2-3.4) K/uL [place] # (Auto) 0.83 H (0.11-0.59) K/uL Eos # (Auto) 0.15 (0-0.5) K/uL Baso # (Auto) 0.02 (0-0.2) K/uL Immature Gran # (Auto) 0.04 H (0.00-0.02) K/uL PT 11.0 (9.0-12.0) Seconds INR 1.0 (0.9-1.1) APTT (21.0-31.0) Seconds PTT Ratio Sodium 141 (136-145) mmol/L Potassium 3.4 L (3.5-5.1) mmol/L Chloride 107 (98-107) mmol/L Carbon Dioxide 27 (21-32) mmol/L Anion Gap 7.0 (3-11) BUN 14 (7-18) mg/dl Creatinine 1.05 (0.6-1.2) mg/dl Est Cr Clr Drug Dosing 82.1 ml/min Est GFR ( Amer) 82.5 Est GFR (Non-Af Amer) 71.2 BUN/Creatinine Ratio 13.2 (10-20) Glucose 94 (70-99) mg/dl Calcium 9.8 (8.5-10.1) mg/dl Magnesium 2.3 (1.8-2.4) mg/dl Total Bilirubin 2.9 H (0.2-1) mg/dl AST 14 L (15-37) U/L ALT 28 (12-78) U/L Alkaline Phosphatase 109 (45-117) U/L Troponin I < 0.015 (0-0.045) ng/ml Total Protein 8.4 H (6.4-8.2) gm/dl Albumin 4.4 (3.4-5.0) gm/dl Globulin 4.0 (2.5-4.0) gm/dl Albumin/Globulin Ratio 1.1 (0.9-2) HCG, Qual (Negative) Urine Color Urine Appearance (Clear) Urine pH (4.5-7.5) Ur Specific [place] (1.000-1.030) Urine Protein (Negative) Urine Glucose (UA) (Negative) Urine Ketones (Negative) Urine Blood (Negative) Urine Nitrite (Negative) Urine Bilirubin (Negative) Urine Urobilinogen (Negative) Ur Leukocyte Esterase (Negative) Urine Opiates Screen (Neg) Ur Methadone, Qual (Neg) Urine Barbiturates (Neg) Ur Phencyclidine (PCP) (Neg) U Amphetamin/Meth Scrn (Neg) MDMA (Ecstasy) Screen (Neg) U Benzodiazepines Scrn (Neg) Ur Cocaine Metabolite (Neg) U Marijuana (THC) Screen (Neg) SARS-CoV-2 Ag (Rapid) (Negative) 08/08/20 08/08/20 08/09/20 Range/Units 22:07 22:08 00:45 WBC (4.8-10.8) K/uL RBC (4.2-5.4) M/uL Hgb (12.0-16.0) g/dL Hct (37-47) % MCV (80-100) fL MCH (25-34) pg MCHC (32-36) g/dL RDW Std Deviation (36.4-46.3) fL RDW Coeff of Axel (11.5-14.5) % Plt Count (130-400) K/uL MPV (7.4-10.4) fL Immature Gran % (Auto) % Neut % (Auto) % Lymph % (Auto) % [place] % (Auto) % Eos % (Auto) % Baso % (Auto) % Neut # (Auto) (1.4-6.5) K/uL Lymph # (Auto) (1.2-3.4) K/uL [place] # (Auto) (0.11-0.59) K/uL Eos # (Auto) (0-0.5) K/uL Baso # (Auto) (0-0.2) K/uL Immature Gran # (Auto) (0.00-0.02) K/uL PT (9.0-12.0) Seconds INR (0.9-1.1) APTT (21.0-31.0) Seconds PTT Ratio Sodium (136-145) mmol/L Potassium (3.5-5.1) mmol/L Chloride (98-107) mmol/L Carbon Dioxide (21-32) mmol/L Anion Gap (3-11) BUN (7-18) mg/dl Creatinine (0.6-1.2) mg/dl Est Cr Clr Drug Dosing ml/min Est GFR ( Amer) Est GFR (Non-Af Amer) BUN/Creatinine Ratio (10-20) Glucose (70-99) mg/dl Calcium (8.5-10.1) mg/dl Magnesium (1.8-2.4) mg/dl Total Bilirubin (0.2-1) mg/dl AST (15-37) U/L ALT (12-78) U/L Alkaline Phosphatase (45-117) U/L Troponin I (0-0.045) ng/ml Total Protein (6.4-8.2) gm/dl Albumin (3.4-5.0) gm/dl Globulin (2.5-4.0) gm/dl Albumin/Globulin Ratio (0.9-2) HCG, Qual Negative (Negative) Urine Color Yellow Urine Appearance Clear (Clear) Urine pH 7.0 (4.5-7.5) Ur Specific [place] > 1.045 H (1.000-1.030) Urine Protein Negative (Negative) Urine Glucose (UA) Negative (Negative) Urine Ketones Negative (Negative) Urine Blood Negative (Negative) Urine Nitrite Negative (Negative) Urine Bilirubin Negative (Negative) Urine Urobilinogen Negative (Negative) Ur Leukocyte Esterase Negative (Negative) Urine Opiates Screen Neg (Neg) Ur Methadone, Qual Neg (Neg) Urine Barbiturates Neg (Neg) Ur Phencyclidine (PCP) Neg (Neg) U Amphetamin/Meth Scrn Neg (Neg) MDMA (Ecstasy) Screen Neg (Neg) U Benzodiazepines Scrn Neg (Neg) Ur Cocaine Metabolite Neg (Neg) U Marijuana (THC) Screen Neg (Neg) SARS-CoV-2 Ag (Rapid) (Negative) 08/09/20 08/09/20 Range/Units 01:17 01:23 WBC (4.8-10.8) K/uL RBC (4.2-5.4) M/uL Hgb (12.0-16.0) g/dL Hct (37-47) % MCV (80-100) fL MCH (25-34) pg MCHC (32-36) g/dL RDW Std Deviation (36.4-46.3) fL RDW Coeff of Axel (11.5-14.5) % Plt Count (130-400) K/uL MPV (7.4-10.4) fL Immature Gran % (Auto) % Neut % (Auto) % Lymph % (Auto) % [place] % (Auto) % Eos % (Auto) % Baso % (Auto) % Neut # (Auto) (1.4-6.5) K/uL Lymph # (Auto) (1.2-3.4) K/uL [place] # (Auto) (0.11-0.59) K/uL Eos # (Auto) (0-0.5) K/uL Baso # (Auto) (0-0.2) K/uL Immature Gran # (Auto) (0.00-0.02) K/uL PT (9.0-12.0) Seconds INR (0.9-1.1) APTT 25.4 (21.0-31.0) Seconds PTT Ratio 0.9 Sodium (136-145) mmol/L Potassium (3.5-5.1) mmol/L Chloride (98-107) mmol/L Carbon Dioxide (21-32) mmol/L Anion Gap (3-11) BUN (7-18) mg/dl Creatinine (0.6-1.2) mg/dl Est Cr Clr Drug Dosing ml/min Est GFR ( Amer) Est GFR (Non-Af Amer) BUN/Creatinine Ratio (10-20) Glucose (70-99) mg/dl Calcium (8.5-10.1) mg/dl Magnesium (1.8-2.4) mg/dl Total Bilirubin (0.2-1) mg/dl AST (15-37) U/L ALT (12-78) U/L Alkaline Phosphatase (45-117) U/L Troponin I (0-0.045) ng/ml Total Protein (6.4-8.2) gm/dl Albumin (3.4-5.0) gm/dl Globulin (2.5-4.0) gm/dl Albumin/Globulin Ratio (0.9-2) HCG, Qual (Negative) Urine Color Urine Appearance (Clear) Urine pH (4.5-7.5) Ur Specific [place] (1.000-1.030) Urine Protein (Negative) Urine Glucose (UA) (Negative) Urine Ketones (Negative) Urine Blood (Negative) Urine Nitrite (Negative) Urine Bilirubin (Negative) Urine Urobilinogen (Negative) Ur Leukocyte Esterase (Negative) Urine Opiates Screen (Neg) Ur Methadone, Qual (Neg) Urine Barbiturates (Neg) Ur Phencyclidine (PCP) (Neg) U Amphetamin/Meth Scrn (Neg) MDMA (Ecstasy) Screen (Neg) U Benzodiazepines Scrn (Neg) Ur Cocaine Metabolite (Neg) U Marijuana (THC) Screen (Neg) SARS-CoV-2 Ag (Rapid) Negative (Negative) Diagnostic Findings CTA Chest - Positive for PE involving the left lower lobe segmental and subsegmental branches. Possible pulmonary infarct at the posterolateral aspect of the left lower lobe. No definite right heart strain. No saddle embolus. No PTX or pleural effusions. No adenopathy. Heart size is normal. Aorta is unremarkable. Code Status & VTE Plan VTE Prophylaxis Plan VTE Prophylaxis will be ordered: Yes PG Care Time/CCT Total # of Minutes Spent Total Time Spent with Patient: Total time spent is greater than 50% in coordination of care (as documented) at patient's floor/unit and/or counseling patient: Coding Level of Care Code 81215 Initial Inpt Care Lvl 3 Diagnoses Pulmonary embolism I26.99 Pulmonary embolism type: unspecified Chronicity: acute Acute cor pulmonale presence: without acute cor pulmonale Chronic sinusitis, unspecified J32.9 Sinusitis location: unspecified location Hypothyroidism E03.8; E06.3 Hypothyroidism type: due to Jess's thyroiditis GERD (gastroesophageal reflux disease) K21.9 (1) Chronic sinusitis, unspecified Sinusitis location: unspecified location Qualified Code(s): J32.9 - Chronic sinusitis, unspecified (2) Hypothyroidism 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 (3) Pulmonary embolism Pulmonary embolism type: unspecified Chronicity: acute Acute cor pulmonale presence: without acute cor pulmonale Qualified Code(s): I26.99 - Other pulmonary embolism without acute cor pulmonale
[2020-08-09] MEDS ORDERED: POTASSIUM CHLORIDE CRTAB 20 MEQ TABCR PO STA (05:12)
[2020-08-09] MEDS ORDERED: DOCUSATE SODIUM 100 MG CAP PO PRN (05:12)
[2020-08-09] MEDS ORDERED: MoRPHine SULFATE 2 MG/ML CARP IV PRN (05:12)
[2020-08-09] MEDS ORDERED: ONDANSETRON 4 MG OD TAB PO PRN (05:16)
[2020-08-09] MEDS: LEVOTHYROXINE SODIUM 150 MCG TABLET PO SCH (05:31)
[2020-08-09] MEDS: ONDANSETRON INJ 2 MG/ML 2 ML VIAL IV PRN ×3 (05:32→20:55)
--- NOTE | 2020-08-09 07:21 | CT Scan Report ---
ABDOMEN AND PELVIS CT WITHOUT CONTRAST CT DOSE: 1397.15 mGy.cm HISTORY: Acute left-sided flank pain L flank pain TECHNIQUE: Multiaxial CT images of the abdomen and pelvis were performed without contrast. A dose lo wering technique was utilized adhering to the principles of ALARA. COMPARISON STUDY: CTA chest of same day, CT abdomen and pelvis 05/21/2020 FINDINGS: Groundglass and airspace opacities of the left greater than right basal lower lobes. There is no pneumatosis or pneumoperitoneum. The imaged inferior cardiac chambers are unremarkable. Limited evaluation of the solid abdominal organs without the use of IV contrast. Cholecystectomy. The unenha nced spleen, pancreas, liver and adrenal glands are unremarkable. The kidneys, ureters, urinary bladd er, uterus and adnexa appear normal. Aorta and IVC are unremarkable. There is no adenopathy. No bowel obstruction or bowel wall thickening. Normal appendix. No ascites or mesenteric inflammation . The imaged breast parenchyma and soft tissues appear unremarkable. Bones appear intact. Minimal lum bar levoscoliosis. No acute fracture. IMPRESSION: 1. Mild left greater than right bibasilar opacities may reflect a mild developing pneumonia. Atelecta sis could appear similarly. 2. No acute intra-abdominal or intrapelvic abnormality. 3. No bowel obstruction or bowel wall thickening. Normal appendix. 4. No urolith or obstructive uropathy. 5. Cholecystectomy. ACT 112: Negative or not required by law. The above report was generated using voice recognition software. It may contain grammatical, syntax o r spelling errors. Electronically signed by: Gregorio Francis M.D. 08/09/2020 7:20 AM
--- NOTE | 2020-08-09 07:49 | CT Scan Report ---
CT ANGIOGRAPHY OF THE CHEST, PULMONARY EMBOLUS PROTOCOL CLINICAL HISTORY: Left-sided chest pain. Evaluate for pulmonary embolus. COMPARISON STUDY: Chest CT July 12, 2020. TECHNIQUE: Following IV administration of 119 mL of Optiray-320, helical axial images of the chest we re obtained utilizing the pulmonary embolus protocol. Maximal intensity projections and sagittal and coronal reformats were viewed on an independent 3D workstation. IV contrast was administered withou t complication. Automated exposure control was utilized for the study. A dose lowering technique wa s utilized adhering to the principles of ALARA. FINDINGS: There are multiple segmental and subsegmental pulmonary emboli within the left lower lobe. No central pulmonary embolus is present. Subpleural opacity within the left lower lobe favor a pulmo nary infarct. There is no pneumothorax. Size of the heart is normal. There is no thoracic lymphadenop athy. No thoracic aortic dissection is noted. Abdomen and pelvis will be reported separately. Bony th orax is unremarkable. IMPRESSION: Multiple segmental and subsegmental pulmonary emboli within the left lower lobe with sub pleural left lower lobe opacity suggestive of a pulmonary infarct. ACT 112: Negative or not required by law. Electronically signed by: Nilesh Kirkpatrick M.D. 08/09/2020 7:48 AM
[2020-08-09 07:52] LABS: Partial Thromboplastin Ratio 4.6
[2020-08-09 07:57] LABS: Partial Thromboplastin Time 128.9 Seconds (21.0-31.0)
[2020-08-09] MEDS ORDERED: CALCIUM CARBONATE 500 MG CHEWABLE TAB PO PRN (08:25)
[2020-08-09] MEDS ORDERED: CALCIUM CARBONATE 500 MG CHEWABLE TAB ONE (08:31)
[2020-08-09] MEDS: PANTOprazole 40 MG TAB PO SCH ×2 (08:35→20:43)
[2020-08-09] MEDS: CEFDINIR 300 MG CAP PO SCH ×2 (08:35→20:42)
[2020-08-09] MEDS: SODIUM CHLORIDE 0.9% 1000ML 1,000 ML IV SCH ×2 (08:36→20:55)
[2020-08-09] MEDS: GABAPENTIN 300 MG CAP PO SCH ×2 (08:36→20:42)
[2020-08-09] MEDS: buPROPion XL 300 MG TABCR PO SCH (08:36)
[2020-08-09] MEDS: IPRATROPIUM BROMIDE NASAL SPRAY 0.06% 15ML SCH (08:36)
[2020-08-09 11:19] LABS: Partial Thromboplastin Ratio 1.1; Partial Thromboplastin Time 31.4 Seconds (21.0-31.0)
--- NOTE | 2020-08-09 15:02 | Hospitalist Progress Note ---
Date of Service August 09, 2020 Assessment & Plan (1) Pulmonary embolism: Patient with acute PE, history of the same. HD stable, no respiratory distress. Pain is well controlled with IV morphine administered in ER. She reports having a hypercoagulable workup performed in the past. No history of miscarriages. No FHx of clotting disorders. She is on Depo-Provera for control however and last injection May 2020. * Will order hypercoag panel that are able to be drawn while on heparin -- rest will need to be drawn with f/u with heme/onc * COVID 19 negative * Does have hx ankylosing spondylosis and follows with Rheumatology and is on naproxen for treatment. Discussed this will unable to be continued and will need to follow up regarding other treatment options * Heparin gtt --> Transition to Xarelto this evening and will need 15mg BID x 21 days then 20mg daily thereafter for at least 3 months if not life long given 2nd episode. CM mesa $ and co-pay $0 * Placed on NSS @ 80cc/hr for hypotension but she typically runs normal in office 120s/70-80s -- denied dizziness/lightheadedness * -->bp improved to 113/74 * Will likely need repeat chest imaging in 1 month given subpleural infarct but will check with pulm regarding timing * Continue to monitor (2) Chronic sinusitis, unspecified: * As previously diagnosed as outpatient -- Continue Cefdinir * Continue nasal spray (3) Hypothyroidism: * Chronic. TSH 0.818 Jun 2020. Will repeat with AM labs * Continue Synthroid at current dose for now. Does follow with Endocrinology (4) GERD (gastroesophageal reflux disease): * Chronic * Continue Pepcid * Continue Omeprazole Anklyosing Spondylosis --Follows with Rheumatology. On naproxen therapy but will need to follow up for alternative treatment given no NSAIDs with concomitant Xarelto therapy at risk of bleeding F/E/N - Heplock. K repletion with 40mEq PO x 1 Ppx - Heparin gtt as above with transition to NOAC this evening Dispo: likely d/c in AM Admission and Anticipated Discharge Date Admission Date: August 09, 2020 Subjective BRIDGE NOTE: Admitted after midnight Patient evaluated this morning. Still with some pleuritic chest pain L sided and under left breast. Much improved. Unsure if she did have hypercoagulable panel done in the past after PE following cholecystectomy approx 10-11 years ago. She denies any prior calf pain or miscarriage, or smoking history. She does endorse a history control and has been on depo-provera, last injection May. She also has history of ankylosing spondy and follows with Rheumatology and is on therapy with naproxen and muscle relaxants. We did discuss able to obtain some clotting studies but others have to be done off anticoagulation. Discussed may need lifelong therapy given seems to be unprovoked vs. discontinuing her depo shots. Will have follow up scheduled with heme/onc. Transition to Xarelto tonight and will check with CM for cost. Also discussed repeating imaging in a month given infarct on CTA. Physical Exam Constitutional: WD/WN, vitals as above Eyes: EOM intact bilaterally ENMT: external ear and nose normal, oropharynx normal Neck: trachea midline Respiratory: normal respiratory effort, lungs clear to auscultation Cardiovascular: RRR, no murmur, no edema Gastrointestinal (Abdomen): normal bowel sounds, soft, nontender, no hepatosplenomegaly Musculoskeletal: no cyanosis or clubbing, extremities motor strength 5/5 Skin: no rashes, warm and dry Psychiatric: Orientation: alert and oriented x 3 Affect: + anxious affect (regarding PE) Results & Data Results & Data ([facility]) Vital Signs (Past 12 Hours) Vital Signs Temp Pulse Resp BP Pulse Ox 08/09/20 11:42 36.9 C 92 H 18 113/74 98 08/09/20 07:52 36.8 C 102 H 18 91/60 L 99 08/09/20 04:45 36.9 C 108 H 18 98/64 L 97 Laboratory Results 08/09/20 08/09/20 08/09/20 Range/Units 10:40 10:40 10:40 WBC (4.8-10.8) K/uL RBC (4.2-5.4) M/uL Hgb (12.0-16.0) g/dL Hct (37-47) % MCV (80-100) fL MCH (25-34) pg MCHC (32-36) g/dL RDW Std Deviation (36.4-46.3) fL RDW Coeff of Axel (11.5-14.5) % Plt Count (130-400) K/uL MPV (7.4-10.4) fL Immature Gran % (Auto) % Neut % (Auto) % Lymph % (Auto) % [place] % (Auto) % Eos % (Auto) % Baso % (Auto) % Neut # (Auto) (1.4-6.5) K/uL Lymph # (Auto) (1.2-3.4) K/uL [place] # (Auto) (0.11-0.59) K/uL Eos # (Auto) (0-0.5) K/uL Baso # (Auto) (0-0.2) K/uL Immature Gran # (Auto) (0.00-0.02) K/uL PT (9.0-12.0) Seconds INR (0.9-1.1) APTT 31.4 H (21.0-31.0) Seconds PTT Ratio 1.1 Protein C Activity Pending Protein S Activity Pending Factor V Leiden Mutat Pending Factor V Leiden Interp Pending Sodium (136-145) mmol/L Potassium (3.5-5.1) mmol/L Chloride (98-107) mmol/L Carbon Dioxide (21-32) mmol/L Anion Gap (3-11) BUN (7-18) mg/dl Creatinine (0.6-1.2) mg/dl Est Cr Clr Drug Dosing ml/min Est GFR ( Amer) Est GFR (Non-Af Amer) BUN/Creatinine Ratio (10-20) Glucose (70-99) mg/dl Calcium (8.5-10.1) mg/dl Magnesium (1.8-2.4) mg/dl Total Bilirubin (0.2-1) mg/dl AST (15-37) U/L ALT (12-78) U/L Alkaline Phosphatase (45-117) U/L Troponin I (0-0.045) ng/ml Total Protein (6.4-8.2) gm/dl Albumin (3.4-5.0) gm/dl Globulin (2.5-4.0) gm/dl Albumin/Globulin Ratio (0.9-2) Homocysteine Pending HCG, Qual (Negative) Urine Color Urine Appearance (Clear) Urine pH (4.5-7.5) Ur Specific [place] (1.000-1.030) Urine Protein (Negative) Urine Glucose (UA) (Negative) Urine Ketones (Negative) Urine Blood (Negative) Urine Nitrite (Negative) Urine Bilirubin (Negative) Urine Urobilinogen (Negative) Ur Leukocyte Esterase (Negative) Urine Opiates Screen (Neg) Ur Methadone, Qual (Neg) Urine Barbiturates (Neg) Ur Phencyclidine (PCP) (Neg) U Amphetamin/Meth Scrn (Neg) MDMA (Ecstasy) Screen (Neg) U Benzodiazepines Scrn (Neg) Ur Cocaine Metabolite (Neg) U Marijuana (THC) Screen (Neg) Beta-2-GPI IgG Ab Pending Beta-2-GPI IgM Ab Pending Anti-Cardiolipin IgG Ab Pending Anti-Cardiolipin IgM Ab Pending SARS-CoV-2 Ag (Rapid) (Negative) Prothrombin Gene Mutate Pending Prothromb Gene Comment Pending 08/09/20 08/09/20 08/09/20 Range/Units 07:02 01:23 01:17 WBC (4.8-10.8) K/uL RBC (4.2-5.4) M/uL Hgb (12.0-16.0) g/dL Hct (37-47) % MCV (80-100) fL MCH (25-34) pg MCHC (32-36) g/dL RDW Std Deviation (36.4-46.3) fL RDW Coeff of Axel (11.5-14.5) % Plt Count (130-400) K/uL MPV (7.4-10.4) fL Immature Gran % (Auto) % Neut % (Auto) % Lymph % (Auto) % [place] % (Auto) % Eos % (Auto) % Baso % (Auto) % Neut # (Auto) (1.4-6.5) K/uL Lymph # (Auto) (1.2-3.4) K/uL [place] # (Auto) (0.11-0.59) K/uL Eos # (Auto) (0-0.5) K/uL Baso # (Auto) (0-0.2) K/uL Immature Gran # (Auto) (0.00-0.02) K/uL PT (9.0-12.0) Seconds INR (0.9-1.1) APTT 128.9 H* 25.4 (21.0-31.0) Seconds PTT Ratio 4.6 0.9 Protein C Activity Protein S Activity Factor V Leiden Mutat Factor V Leiden Interp Sodium (136-145) mmol/L Potassium (3.5-5.1) mmol/L Chloride (98-107) mmol/L Carbon Dioxide (21-32) mmol/L Anion Gap (3-11) BUN (7-18) mg/dl Creatinine (0.6-1.2) mg/dl Est Cr Clr Drug Dosing ml/min Est GFR ( Amer) Est GFR (Non-Af Amer) BUN/Creatinine Ratio (10-20) Glucose (70-99) mg/dl Calcium (8.5-10.1) mg/dl Magnesium (1.8-2.4) mg/dl Total Bilirubin (0.2-1) mg/dl AST (15-37) U/L ALT (12-78) U/L Alkaline Phosphatase (45-117) U/L Troponin I (0-0.045) ng/ml Total Protein (6.4-8.2) gm/dl Albumin (3.4-5.0) gm/dl Globulin (2.5-4.0) gm/dl Albumin/Globulin Ratio (0.9-2) Homocysteine HCG, Qual (Negative) Urine Color Urine Appearance (Clear) Urine pH (4.5-7.5) Ur Specific [place] (1.000-1.030) Urine Protein (Negative) Urine Glucose (UA) (Negative) Urine Ketones (Negative) Urine Blood (Negative) Urine Nitrite (Negative) Urine Bilirubin (Negative) Urine Urobilinogen (Negative) Ur Leukocyte Esterase (Negative) Urine Opiates Screen (Neg) Ur Methadone, Qual (Neg) Urine Barbiturates (Neg) Ur Phencyclidine (PCP) (Neg) U Amphetamin/Meth Scrn (Neg) MDMA (Ecstasy) Screen (Neg) U Benzodiazepines Scrn (Neg) Ur Cocaine Metabolite (Neg) U Marijuana (THC) Screen (Neg) Beta-2-GPI IgG Ab Beta-2-GPI IgM Ab Anti-Cardiolipin IgG Ab Anti-Cardiolipin IgM Ab SARS-CoV-2 Ag (Rapid) Negative (Negative) Prothrombin Gene Mutate Prothromb Gene Comment 08/09/20 08/08/20 08/08/20 Range/Units 00:45 22:08 22:07 WBC (4.8-10.8) K/uL RBC (4.2-5.4) M/uL Hgb (12.0-16.0) g/dL Hct (37-47) % MCV (80-100) fL MCH (25-34) pg MCHC (32-36) g/dL RDW Std Deviation (36.4-46.3) fL RDW Coeff of Axel (11.5-14.5) % Plt Count (130-400) K/uL MPV (7.4-10.4) fL Immature Gran % (Auto) % Neut % (Auto) % Lymph % (Auto) % [place] % (Auto) % Eos % (Auto) % Baso % (Auto) % Neut # (Auto) (1.4-6.5) K/uL Lymph # (Auto) (1.2-3.4) K/uL [place] # (Auto) (0.11-0.59) K/uL Eos # (Auto) (0-0.5) K/uL Baso # (Auto) (0-0.2) K/uL Immature Gran # (Auto) (0.00-0.02) K/uL PT (9.0-12.0) Seconds INR (0.9-1.1) APTT (21.0-31.0) Seconds PTT Ratio Protein C Activity Protein S Activity Factor V Leiden Mutat Factor V Leiden Interp Sodium (136-145) mmol/L Potassium (3.5-5.1) mmol/L Chloride (98-107) mmol/L Carbon Dioxide (21-32) mmol/L Anion Gap (3-11) BUN (7-18) mg/dl Creatinine (0.6-1.2) mg/dl Est Cr Clr Drug Dosing ml/min Est GFR ( Amer) Est GFR (Non-Af Amer) BUN/Creatinine Ratio (10-20) Glucose (70-99) mg/dl Calcium (8.5-10.1) mg/dl Magnesium (1.8-2.4) mg/dl Total Bilirubin (0.2-1) mg/dl AST (15-37) U/L ALT (12-78) U/L Alkaline Phosphatase (45-117) U/L Troponin I (0-0.045) ng/ml Total Protein (6.4-8.2) gm/dl Albumin (3.4-5.0) gm/dl Globulin (2.5-4.0) gm/dl Albumin/Globulin Ratio (0.9-2) Homocysteine HCG, Qual Negative (Negative) Urine Color Yellow Urine Appearance Clear (Clear) Urine pH 7.0 (4.5-7.5) Ur Specific [place] > 1.045 H (1.000-1.030) Urine Protein Negative (Negative) Urine Glucose (UA) Negative (Negative) Urine Ketones Negative (Negative) Urine Blood Negative (Negative) Urine Nitrite Negative (Negative) Urine Bilirubin Negative (Negative) Urine Urobilinogen Negative (Negative) Ur Leukocyte Esterase Negative (Negative) Urine Opiates Screen Neg (Neg) Ur Methadone, Qual Neg (Neg) Urine Barbiturates Neg (Neg) Ur Phencyclidine (PCP) Neg (Neg) U Amphetamin/Meth Scrn Neg (Neg) MDMA (Ecstasy) Screen Neg (Neg) U Benzodiazepines Scrn Neg (Neg) Ur Cocaine Metabolite Neg (Neg) U Marijuana (THC) Screen Neg (Neg) Beta-2-GPI IgG Ab Beta-2-GPI IgM Ab Anti-Cardiolipin IgG Ab Anti-Cardiolipin IgM Ab SARS-CoV-2 Ag (Rapid) (Negative) Prothrombin Gene Mutate Prothromb Gene Comment 08/08/20 08/08/20 08/08/20 Range/Units 22:07 22:07 22:07 WBC 8.73 (4.8-10.8) K/uL RBC 4.83 (4.2-5.4) M/uL Hgb 15.0 (12.0-16.0) g/dL Hct 42.5 (37-47) % MCV 88.0 (80-100) fL MCH 31.1 (25-34) pg MCHC 35.3 (32-36) g/dL RDW Std Deviation 39.9 (36.4-46.3) fL RDW Coeff of Axel 12.5 (11.5-14.5) % Plt Count 282 (130-400) K/uL MPV 9.7 (7.4-10.4) fL Immature Gran % (Auto) 0.5 % Neut % (Auto) 68.6 % Lymph % (Auto) 19.5 % [place] % (Auto) 9.5 % Eos % (Auto) 1.7 % Baso % (Auto) 0.2 % Neut # (Auto) 5.99 (1.4-6.5) K/uL Lymph # (Auto) 1.70 (1.2-3.4) K/uL [place] # (Auto) 0.83 H (0.11-0.59) K/uL Eos # (Auto) 0.15 (0-0.5) K/uL Baso # (Auto) 0.02 (0-0.2) K/uL Immature Gran # (Auto) 0.04 H (0.00-0.02) K/uL PT 11.0 (9.0-12.0) Seconds INR 1.0 (0.9-1.1) APTT (21.0-31.0) Seconds PTT Ratio Protein C Activity Protein S Activity Factor V Leiden Mutat Factor V Leiden Interp Sodium 141 (136-145) mmol/L Potassium 3.4 L (3.5-5.1) mmol/L Chloride 107 (98-107) mmol/L Carbon Dioxide 27 (21-32) mmol/L Anion Gap 7.0 (3-11) BUN 14 (7-18) mg/dl Creatinine 1.05 (0.6-1.2) mg/dl Est Cr Clr Drug Dosing 82.1 ml/min Est GFR ( Amer) 82.5 Est GFR (Non-Af Amer) 71.2 BUN/Creatinine Ratio 13.2 (10-20) Glucose 94 (70-99) mg/dl Calcium 9.8 (8.5-10.1) mg/dl Magnesium 2.3 (1.8-2.4) mg/dl Total Bilirubin 2.9 H (0.2-1) mg/dl AST 14 L (15-37) U/L ALT 28 (12-78) U/L Alkaline Phosphatase 109 (45-117) U/L Troponin I < 0.015 (0-0.045) ng/ml Total Protein 8.4 H (6.4-8.2) gm/dl Albumin 4.4 (3.4-5.0) gm/dl Globulin 4.0 (2.5-4.0) gm/dl Albumin/Globulin Ratio 1.1 (0.9-2) Homocysteine HCG, Qual (Negative) Urine Color Urine Appearance (Clear) Urine pH (4.5-7.5) Ur Specific [place] (1.000-1.030) Urine Protein (Negative) Urine Glucose (UA) (Negative) Urine Ketones (Negative) Urine Blood (Negative) Urine Nitrite (Negative) Urine Bilirubin (Negative) Urine Urobilinogen (Negative) Ur Leukocyte Esterase (Negative) Urine Opiates Screen (Neg) Ur Methadone, Qual (Neg) Urine Barbiturates (Neg) Ur Phencyclidine (PCP) (Neg) U Amphetamin/Meth Scrn (Neg) MDMA (Ecstasy) Screen (Neg) U Benzodiazepines Scrn (Neg) Ur Cocaine Metabolite (Neg) U Marijuana (THC) Screen (Neg) Beta-2-GPI IgG Ab Beta-2-GPI IgM Ab Anti-Cardiolipin IgG Ab Anti-Cardiolipin IgM Ab SARS-CoV-2 Ag (Rapid) (Negative) Prothrombin Gene Mutate Prothromb Gene Comment Diagnostic Findings CTA/P IMPRESSION: 1. Mild left greater than right bibasilar opacities may reflect a mild developing pneumonia. Atelectasis could appear similarly. 2. No acute intra-abdominal or intrapelvic abnormality. 3. No bowel obstruction or bowel wall thickening. Normal appendix. 4. No urolith or obstructive uropathy. 5. Cholecystectomy. CTA Chest PE IMPRESSION: Multiple segmental and subsegmental pulmonary emboli within the left lower lobe with subpleural left lower lobe opacity suggestive of a pulmonary infarct. PG Care Time/CCT Total # of Minutes Spent Total Time Spent with Patient: Total time spent is greater than 50% in coordination of care (as documented) at patient's floor/unit and/or counseling patient: Coding Level of Care Code None Diagnoses Pulmonary embolism I26.99 Acute cor pulmonale presence: without acute cor pulmonale Chronicity: acute Pulmonary embolism type: unspecified Chronic sinusitis, unspecified J32.9 Sinusitis location: unspecified location Hypothyroidism E03.8; E06.3 Hypothyroidism type: due to Jess's thyroiditis GERD (gastroesophageal reflux disease) K21.9 (1) Hypothyroidism 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 (2) Pulmonary embolism Acute cor pulmonale presence: without acute cor pulmonale Chronicity: acute Pulmonary embolism type: unspecified Qualified Code(s): I26.99 - Other pulmonary embolism without acute cor pulmonale (3) Chronic sinusitis, unspecified Sinusitis location: unspecified location Qualified Code(s): J32.9 - Chronic sinusitis, unspecified
[2020-08-09] MEDS: RIVAROXABAN 15 MG TAB PO SCH (17:16)
[2020-08-09] MEDS: ACETAMINOPHEN 325 MG TAB PO PRN (20:54)
[2020-08-09] MEDS ORDERED: FAMOTIDINE 40 MG TABLET PO SCH (21:00)
[2020-08-10] MEDS: ONDANSETRON INJ 2 MG/ML 2 ML VIAL IV PRN ×2 (03:25→08:32)
[2020-08-10] MEDS: LEVOTHYROXINE SODIUM 150 MCG TABLET PO SCH (05:59)
[2020-08-10] MEDS: ACETAMINOPHEN 325 MG TAB PO PRN ×2 (06:01→10:53)
[2020-08-10 08:11] LABS: Basophils # (auto) 0.03 K/uL (0-0.2); Basophils % (auto) 0.5 %; Eosinophils # (auto) 0.14 K/uL (0-0.5); Eosinophils % (auto) 2.2 %; Hematocrit (blood only) 35.6 % (37-47); Hemoglobin 12.3 g/dL (12.0-16.0); Immature Granulocytes # (auto) 0.05 K/uL (0.00-0.02); Immature Granulocytes % (auto) 0.8 %; Lymphocytes # (auto) 1.27 K/uL (1.2-3.4); Lymphocytes % (auto) 19.7 %; Mean Corpuscular Hemoglobin 30.8 pg (25-34); Mean Corpuscular Hgb Conc 34.6 g/dL (32-36); Mean Platelet Volume 9.6 fL (7.4-10.4); Monocytes # (auto) 0.65 K/uL (0.11-0.59); Monocytes % (auto) 10.1 %; Neutrophils % (auto) 66.7 %; Platelet Count 242 K/uL (130-400); RDW Coefficient of Variation 12.5 % (11.5-14.5); RDW Standard Deviation 40.3 fL (36.4-46.3); White Blood Count 6.44 K/uL (4.8-10.8)
[2020-08-10] MEDS: IPRATROPIUM BROMIDE NASAL SPRAY 0.06% 15ML SCH (08:25)
[2020-08-10] MEDS: CEFDINIR 300 MG CAP PO SCH (08:32)
[2020-08-10] MEDS: PANTOprazole 40 MG TAB PO SCH (08:32)
[2020-08-10] MEDS: GABAPENTIN 300 MG CAP PO SCH (08:32)
[2020-08-10] MEDS: RIVAROXABAN 15 MG TAB PO SCH ×2 (08:32→16:23)
[2020-08-10] MEDS: SODIUM CHLORIDE 0.9% 1000ML 1,000 ML IV SCH (08:33)
[2020-08-10] MEDS: buPROPion XL 300 MG TABCR PO SCH (08:33)
[2020-08-10 08:51] LABS: Albumin Level 3.3 gm/dl (3.4-5.0); BUN Creatinine Ratio 9.2 (10-20); Bilirubin Direct 0.3 mg/dl (0-0.2); Bilirubin,Total 2.2 mg/dl (0.2-1); Calcium 9.1 mg/dl (8.5-10.1); Creatinine Clr Calc Pharmacy 101.7 ml/min; Est GFR (African American) 106.6; Est GFR (Non-African American) 91.9; Potassium 3.8 mmol/L (3.5-5.1); Total Protein 6.6 gm/dl (6.4-8.2)
[2020-08-10 08:55] LABS: Thyroid Stimulating Hormone 0.5 uIu/ml (0.300-4.500)
[2020-08-10] MEDS ORDERED: PROCHLORPERAZINE 5 MG in SYRINGE 4 ML IV ONE (09:00)
[2020-08-10] MEDS ORDERED: predniSONE 20 MG TAB PO ONE (09:00)
--- NOTE | 2020-08-10 12:37 | CT Scan Report ---
CT head/brain wo con CLINICAL HISTORY: 29 years-old Female with headache, worst. unlike any in past. Acute headache TECHNIQUE: Multiple axial CT images of the head were obtained without contrast. A dose lowering tech nique was utilized adhering to the principles of ALARA. CT DOSE: 537.48 mGy.cm COMPARISON: CT sinus and head CT 07/01/2020 FINDINGS: No acute intracranial hemorrhage, midline shift, intracranial mass, hydrocephalus, territorial ischem ia or abnormal extra-axial collection. The calvarium is intact. The paranasal sinuses, mastoid air cells, and middle ear cavities are clear . IMPRESSION: No acute process. ACT 112: Negative or not required by law. The above report was generated using voice recognition software. It may contain grammatical, syntax o r spelling errors. Electronically signed by: Gregorio Francis M.D. 08/10/2020 12:35 PM
--- NOTE | 2020-08-10 13:38 | Neurology Consultation ---
Date of Consultation August 10, 2020 Assessment & Plan (1) Pulmonary embolism: (2) Chronic nonallergic rhinitis: (3) Chronic sinusitis, unspecified: (4) Headache: Michelle Berrios is a 29 yo woman w/ PMH of anxiety/depression, fibromyalgia, ankylosing spondylitis on daily NSAIDs, endometriosis, PCOS, recurrent PE, hypothyroidism and allergies who p/t [facility] with left sided pleuritic chest pain, found to have recurrent PE now on heparin gtt and morphine prn. Neurology consulted for help with managing headaches. # Headaches: - Serial migraine cocktails: IV tylenol/Benadryl/compazine q8h - Consider valproic acid 500mg IV q8h if no improvement in headache and pr egnancy test negative - Would also start magnesium 2g IV q12h x2 - Would obtain CTV to r/o CVST in the setting of recurrent PE and c/f hypercoagulable state - If CTH negative, she is ok to discharge from a neurological standpoint - Recommend ophtho evaluation to r/o any subtle optic disc edema within the next 1-2 weeks that would be c/f IIH - Recommend that she start magnesium 400mg daily on discharge for suspected new onset migraine without aura. Can also trial imitrex PO prn (give script at discharge) - She already has f/u with neurology scheduled for September 2020 Thank you for this interesting consult. Plan of care discussed with primary team. Please call or text with any questions. History of Present Illness Attending Physician: Robbin Galloway MD History of Present Illness Michelle Berrios is a 29 yo woman w/ PMH of anxiety/depression, fibromyalgia, ankylo sing spondylitis on daily NSAIDs, endometriosis, PCOS, recurrent PE, hypothyroidism and allergies who p/t [facility] with left sided pleuritic chest pain, found to have recurrent PE now on heparin gtt and morphine prn. Neurology consulted for help with managing headaches. Headache characteristics: Onset: in last one month Recent changes: none Frequency: 2-3 times per week Location: mainly bifrontal, can be holocephalic Duration of headache: 2 hours with medication Severity (average/most severe): 8-10/10, throbbing Associated symptoms: nausea, photophobia Aura: denies Current headache medications: tylenol prn, benadryl prn, gabapentin 600mg bid, naproxen 500mg bid (until admitted with PE, now has to stop this) Previous headache medications tried: none CTH showed no hemorrhage or hypodensity. Labs notable for WBC 6.44, hemoglobin 12.3, platelets 242, initial INR 1.0, BMP unremarkable, initial glucose 94, LFTs unremarkable, troponin negative, TSH within normal, test negative, UA negative for infection, UDS negative, Covid negative, hypercoagulable panel pending. Allergies Allergy/AdvReac Type Severity Reaction Status Date / Time egg Allergy Severe ANAPHYLAXIS Verified 08/08/20 22:06 Penicillins Allergy Intermediate RASH Verified 08/08/20 22:06 Sulfa (Sulfonamide Allergy Mild Rash Verified 08/08/20 22:06 Antibiotics) metoclopramide AdvReac Mild SHAKY Verified 08/08/20 22:06 Home Medications Medication Instructions Recorded Confirmed Type bupropion HCl [Wellbutrin XL] 300 mg PO QAM 03/03/19 08/08/20 History cyclobenzaprine 10 mg PO BID PRN 03/03/19 08/08/20 History famotidine 40 mg PO HS 03/03/19 08/08/20 History fluocinonide 1 applic TOPICAL BID PRN 03/03/19 08/08/20 History hyoscyamine sulfate 0.25 mg PO QID PRN 03/03/19 08/08/20 History ketoconazole 1 applic TOPICAL DAILY 03/03/19 08/08/20 History medroxyprogesterone 150 mg IM DIRECTED 03/03/19 08/08/20 History multivitamin 1 tab PO DAILY 03/03/19 08/08/20 History omeprazole 20 mg PO BID 03/03/19 08/08/20 History gabapentin 300 mg capsule 600 mg PO BID cap 09/08/19 08/08/20 History naproxen 500 mg tablet 500 mg PO BID 09/08/19 08/08/20 History ondansetron 4 mg PO Q6H PRN #15 tab 09/16/19 08/08/20 Rx Levoxyl 150 mcg tablet 150 mcg PO DAILY #30 tab NS 04/04/20 08/08/20 Rx cholecalciferol (vitamin D3) 1,250 mcg PO WK 07/12/20 08/08/20 History ipratropium bromide 42 mcg (0.06 2 spray INTRANASAL DAILY #15 ml 07/20/20 08/08/20 Rx %) nasal spray cefdinir 300 mg PO Q12 08/08/20 08/08/20 History Patient History Medical History (Updated 08/10/20 @ 13:50 by Judy Evans MD) Abnormal menses Acute pancreatitis (12/16/12) Anemia Ankylosing spondylitis Class 2 obesity in adult Depressive disorder, not elsewhere classified (12/16/12) Encounter for visit Encounter for routine gynecological examination with Papanicolaou smear of cervix Fatigue Gastro-esophageal reflux disease with esophagitis (12/16/12) Gastroparesis Jess's disease High risk medication use History of pulmonary embolus (PE) Hypothyroidism Irritable bowel syndrome (12/16/12) Labor established (08/02/13) Laryngopharyngeal reflux Obesity Other pulmonary embolism and infarction (12/16/12) Palpitations PCOS (polycystic ovarian syndrome) Polycystic ovaries (12/16/12) Sensorineural hearing loss (SNHL) of right ear with unrestricted hearing of left ear Tachycardia Vitamin D deficiency Vulvovaginitis Surgical History History of arthroscopy History of knee surgery Meniscus repair left - 2016,2018 Meniscus repair right - 2011 History of surgery on wrist History of tooth extraction Hx of cholecystectomy Family History Grandmother (Maternal) Breast cancer Mother Hypertension Asthma Grandmother Hypertension Cancer Father Hearing loss Other Coronary heart disease Diabetes Dyslipidemia No family history of adverse response to anesthesia No family history of bleeding disorder No pertinent family history in first degree relatives Social History Smoking Status: Never smoker Second Hand Exposure: No; Hx Alcohol Use: No Hx Substance Use: No Preferred Language: Burmese Communication Ability: Effective Fish Hatchery Inspector Required: No Beliefs That Will Affect Care: None marital status: Current Living Situation: Spouse current occupational status: employed 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 Exam (Neuro) Physical Exam: General Exam: GEN: NAD, sitting in chair. HEENT: No conjunctival injection, no rhinorrhea. CV: RRR, no peripheral edema PULM: Nonlabored respirations on room air. Neuro Exam: MS: Awake and Alert. Oriented to person, place, and date. Speech fluent and appropriate without dysarthria or paraphasic errors. Language intact including naming, comprehension, repetition. Cognition and memory grossly intact. Attention intact. No neglect. CN: Visual messina full. No extinction to double simultaneous stimuli. No optic disc edema on fundoscopic exam. PERRLA OU. EOMI without nystagmus. Facial sensation intact to LT. Facial muscles full and symmetric. Hearing intact to conversation. Uvula midline with symmetric palatal elevation. Shoulder shrug normal. Tongue midline. MOTOR: Normal bulk and tone. No pronator drift. BUE strength 5/5 at deltoids, biceps, triceps, wrist flexors and extensors, and hand grasp bilaterally. BLE strength 5/5 at iliopsoas, hamstrings, quadriceps, tibialis anterior, and gastrocnemius bilaterally. REFLEXES: 2+ at biceps, triceps, brachioradialis, patella and Achilles bilaterally. Flexor plantar responses bilaterally. SENSORY: Intact to LT without extinction to double simultaneous stimuli. Vibration and pinprick intact throughout. COORDINATION: No dysmetria or ataxia on [id number] and [id number] bilaterally. Normal Jordyn bilaterally. GAIT: Normal gait and arm swing. Normal Romberg. Results & Data ([facility]) Vital Signs (Past 12 Hours) Vital Signs Temp Pulse Pulse Resp BP Pulse Ox 08/10/20 11:21 36.7 C 92 H 18 108/71 100 08/10/20 07:21 36.9 C 89 18 101/67 99 08/10/20 07:00 90 PG Care Time/CCT Total # of Minutes Spent Total Time Spent with Patient: Total time spent is greater than 50% in coordination of care (as documented) at patient's floor/unit and/or counseling patient: Coding Level of Care Code 36869 Inpt Consult Level 5 Diagnoses Pulmonary embolism I26.99 Acute cor pulmonale presence: without acute cor pulmonale Chronicity: acute Pulmonary embolism type: unspecified Chronic nonallergic rhinitis J31.0 Chronic sinusitis, unspecified J32.9 Sinusitis location: unspecified location Headache R51.9 (1) Pulmonary embolism Acute cor pulmonale presence: without acute cor pulmonale Chronicity: acute Pulmonary embolism type: unspecified Qualified Code(s): I26.99 - Other pulmonary embolism without acute cor pulmonale (2) Chronic sinusitis, unspecified Sinusitis location: unspecified location Qualified Code(s): J32.9 - Chronic sinusitis, unspecified
[2020-08-10] MEDS ORDERED: diphenhydrAMINE 50 MG/ML VIAL IV SCH (14:30)
[2020-08-10] MEDS ORDERED: ACETAMINOPHEN 325 MG TAB PO SCH (14:30)
[2020-08-10] MEDS ORDERED: MAGNESIUM SULFATE / D5W 1 GM/100 ML BAG IV SCH (14:45)
--- NOTE | 2020-08-10 15:55 | Discharge Summary ---
Date of Service August 10, 2020 Admission HPI Per Admitting Provider Michelle Berrios is a 29yo C female with history of prior PE - provoked in setting of surgery, depression, hypothyroidism presenting with left sided pleuritic peace pain. Pain has been ongoing for the last few days - most severe 10day. Located left side with radiation under breast. Mild non-productive cough, SOB. Patient recently put on Cefdinir for suspected rhinosinusitis. She has a Covid- 19 test pending. Admission Exam Per Admitting Provider General: patient resting comfortably, NAD, non-toxic in appearance, AA&O x 4 Skin: warm, dry, intact, no rashes or lesions HEENT: NC/AT, PERRL, EOMI, anicteric sclera, conjunctiva without injection, external ear normal to inspection and nontender, nares patent, moist mucus membranes, dentition intact, no oropharyngeal lesions, neck supple, trachea midline, no LAD, no thyromegaly, no JVD Heart: +S1/S2, regular, tachycardic, no m/r/g Lungs: equal air entry bilaterally, no rales/rhonchi/wheezes Abd: +BS, soft, NT/ND, no masses/organomegaly/ascites Ext: warm, 2+ pulses in UE/LE bilaterally, no clubbing/cyanosis or edema Neuro: nonfocal, patient AA&O x 4, speech intact, no facial droop, moving all extremities on command with equal strength 5/5 Principal Diagnosis PE Discharge Exam Constitutional WD/WN, vitals as above Eyes EOM intact bilaterally ENMT external ear and nose normal, oropharynx normal Neck trachea midline Respiratory normal respiratory effort, lungs clear to auscultation Cardiovascular RRR, no murmur, no edema Gastrointestinal (Abdomen) normal bowel sounds, soft, nontender, no hepatosplenomegaly Musculoskeletal no cyanosis or clubbing, extremities motor strength 5/5 Skin no rashes, warm and dry Neurologic PERRL, EOMI, accommodation nl, no face palsy, no dysarthria Psychiatric Orientation: alert and oriented x 3 Affect: + anxious affect (regarding PE) Lymphatic no cervical or axillary lymphadenopathy Discharge Data Allergies Allergy/AdvReac Type Severity Reaction Status Date / Time egg Allergy Severe ANAPHYLAXIS Verified 08/08/20 22:06 Penicillins Allergy Intermediate RASH Verified 08/08/20 22:06 Sulfa (Sulfonamide Allergy Mild Rash Verified 08/08/20 22:06 Antibiotics) metoclopramide AdvReac Mild SHAKY Verified 08/08/20 22:06 Consultations 08/09/20 01:17 ED Decision to Admit Stat 08/10/20 08:47 Consult Neurology Routine Ordered Studies 08/08/20 21:35 CT angio chest PE protocol Urgent 08/08/20 21:48 CT abd pelvis wo con Urgent 08/10/20 11:11 CT head/brain wo con Urgent 08/10/20 14:22 CT head venogram w con Urgent Hospital Course (1) Pulmonary embolism: Patient with acute PE, history of the same. HD stable, no respiratory distress. Pain is well controlled with IV morphine administered in ER. She reports having a hypercoagulable workup performed in the past. No history of miscarriages. No FHx of clotting disorders. She is on Depo-Provera for control however and last injection May 2020. * COVID 19 negative * Placed on Heparin gtt and transitioned to Xarelto 15mg BID x 21 days, then 20mg daily * Hypercoag pending at d/c -- will have follow up with heme/onc. May need lifelong anticoagulation given second PE and current unprovoked * Does have hx ankylosing spondylosis and follows with Rheumatology and is on naproxen for treatment. Discussed this will unable to be continued and will need to follow up regarding other treatment options * Heparin gtt --> Transition to Xarelto this evening and will need 15mg BID x 21 days then 20mg daily thereafter for at least 3 months if not life long given 2nd episode. CM mesa $ and co-pay $0 * Spoke with pulmonary team * --> Recommends PCP follow up with repeat CT Chest 2-3 months for follow up of infarct and ECHO in 6 months (2) Chronic sinusitis, unspecified: * As previously diagnosed as outpatient -- Continued Cefdinir until complete * Continued nasal spray (3) Hypothyroidism: * Chronic. TSH 0.818 Jun 2020. Repeat wnl * Continued Synthroid at current dose for now. Does follow with Endocrinology and should follow up outpatient (4) GERD (gastroesophageal reflux disease): * Chronic * Continued Pepcid, Omeprazole Anklyosing Spondylosis --Follows with Rheumatology. On naproxen therapy but will need to follow up for alternative treatment given no NSAIDs with concomitant Xarelto therapy at risk of bleeding (5) Headache: Reported -- given morphine for pain so could be rebound. Improved with Compazine and prednisone CT Head negative Neurology consulted -- ordered CTV to r/o CVTS. Negative Headache resolved and to follow up with PCP for recurrence/issues Discharged home with Total Time Total Time Spent Total Time Spent (In Minutes): 80 Discharge Plan Discharge Items Patient Disposition: Home - Self-Care Reason For Visit: PE Discharge Diagnosis: Pulmonary Embolism with Infarct Condition on Discharge: Good Goals: You have been hospitalized for an acute medical problem. During your stay at [facility], we have made an effort to correct the problem that brought you to the hospital while keeping you as comfortable as possible. Medications were used to bring your condition under control and your discharge instructions will include directions for any medications you should take after leaving the hospital. Please make sure you see your Primary Care Provider as part of your follow up plan. Activity: Resume your previous activity Non-emergency contact: Primary Care Provider, Specialist and Neurologist Call non-emergency contact if: you have any medication questions, your symptoms worsen and your pain is concerning for you Follow-up/Referrals: Winston Hannon PA-C [Physician Tax Compliance Officer] - (2 weeks) Bernardino Valladares DO [Physician] - 08/23/20 1:30 pm (You have an appt with Dr Valladares on ThursdayAugust 23 at 1:30pm. Please arrive 15 minutes prior to your appt. ) Chio Curran DO [Primary Care Provider] - Clifton Kothari MD [Physician] - (1 week) Diet: Regular Addtl Attending Provider Instructions: You have been hospitalized and found to have pulmonary emboli with associated infarction. You were tested for COVID and this was NEGATIVE. You were placed on a heparin drip and converted to Xarelto therapy for treatment. This should be continued for 3 months, if not life long, given this is 2nd blood clot and no provoking factor like previously. * Xarelto 15mg by mouth twice daily (with food) for a total of 21 days, then 20mg daily at night with food for a total of 3 months. * --> You will continue the Xarelto at 15mg TWICE daily until 08/30 and then continue with the 20mg once daily thereafter. As discussed, this could be due to inflammatory state with your ankylosing spondylosis and you should follow up with Rheumatology to see about alternative treatment given you should no longer continue naproxen while on Xarelto as this increases your chances of bleeding. You should also avoid Motrin/ibuprofen, Aleeve or any other NSAIDs. You may utilize Tylenol for pain and utilize Percocet for breakthrough pain but make sure not to exceed total acetaminophen dose 3,000mg in a 24 hour period of time. Pain may persist for a little while as the clot resolves before you are back to your baseline. As discussed, I spoke with our patch press operator given the infarct and he is recommending that you have follow up testing with your primary care provider for the following * CT Chest in 2-3 months to follow up on the infarction * ECHO (ultrasound of your heart) in 6 months to ensure no strain from the PE following treatment. You have been made a follow up appointment with hematology/oncology with Dr. Valladares. Hypercoagulability labs that were able to be drawn while on anticoagulation were drawn and others will need to be ordered once you have completed treatment for 3 months. However, given this is unprovoked you may need to continue life long. Given that, as discussed, control can be a risk factor and you may want to discontinue this and look into alternative contraception. You should also follow up with Endocrinology as previously scheduled. Your TSH was checked and found to be within normal limits. You should continue Vitamin D supplementation 50,000 IU weekly given recent vitamin D level was low and have repeat labs at their discretion. For headache, it may be rebound from opioid (morphine) use and you should be aware while using pain medications for treatment. --You were also evaluated by Neurology for headache and imaging was negative for clot. You also had a CT Head the day prior which was also negative for acute findings. Please follow up with your primary care provider in the next week to monitor your progress. Please return to the emergency department with any worsening shortness of breath, chest pain, bleeding, or for any other symptoms that are concerning for you. Addtl Auto Clocks Repairer Provider Instructions: Medication Instructions: Your condition is typically treated with an anticoagulant. Anticoagulants will thin your blood to help prevent new clots. * You should take her medication exactly as directed. * Never skip a dose. * Never take a double dose. If you miss a dose, take it as soon as you remember. Call your Primary Care doctor if you experience any of the following: * Swelling or Pain in your leg * Sudden, continuous pain deep in a muscle * Pain that worsens when you are active or when you stand still for a long time * Chest Pain * Sudden Shortness of Breath * Rapid or pounding heart beat * Fainting * Dizziness * Cough with blood or bloody sputum * Sweating more than normal * Bruises * Heavy or uncontrolled bleeding * Blood in your urine, stool or vomit * Black or tarry stools Caring for Your Self at Home: * Avoid sitting, standing or lying down for long periods without moving your legs and feet * When traveling by car, stop to get out and move around at least once every 3 hours * On long airplane, train or bus rides, get up and move around when possible * If you can't get up, wiggle your toes and tighten your calves to keep your blood moving Follow Up: It is important for you to keep your follow up appointments with your medical provider. Pending Studies at Discharge: Yes Studies:: Beta 2 glycoproteins, anti-cardiolipin antibodies, Prothrombin gene mutation, Protein C, Protein S, Factor V Leiden Stand-Alone Forms: My [facility] Forter, Smoking Cessation Medications and DC Order Prescriptions: New Xarelto 15 mg Tablet 15 mg PO BIDM 20 Days Qty: 40 RF: 0 oxycodone-acetaminophen [Percocet] 5-325 mg tablet 1 tab PO Q8H PRN (Reason: pain) Qty: 7 RF: 0 Xarelto 20 mg tablet 20 mg PO DAILY Qty: 30 RF: 0 Continued ipratropium bromide 42 mcg (0.06 %) spray,non-aerosol 2 spray intranasal DAILY Qty: 15 RF: 11 multivitamin Tablet 1 tab PO DAILY RF: 0 cyclobenzaprine 10 mg tablet 10 mg PO BID PRN (Reason: Muscle Spasm) RF: 0 ketoconazole 2 % shampoo 1 applic topical DAILY RF: 0 famotidine 40 mg tablet 40 mg PO HS RF: 0 hyoscyamine sulfate 0.125 mg Tablet 0.25 mg PO QID PRN (Reason: Muscle Spasm) RF: 0 fluocinonide 0.05 % Solution 1 applic TOPICAL BID PRN (Reason: Itching) RF: 0 bupropion HCl [Wellbutrin XL] 300 mg Tablet Extended Release 24 Hr 300 mg PO QAM RF: 0 omeprazole 20 mg Tablet,Delayed Release (Dr/Ec) 20 mg PO BID RF: 0 gabapentin 300 mg capsule 600 mg PO BID RF: 0 ondansetron 4 mg tablet,disintegrating 4 mg PO Q6H PRN (Reason: nausea and vomiting) Qty: 15 RF: 0 cholecalciferol (vitamin D3) 1,250 mcg (50,000 unit) tablet 1,250 mcg PO WK RF: 0 cefdinir 300 mg capsule 300 mg PO Q12 RF: 0 Discontinued naproxen 500 mg tablet 500 mg PO BID RF: 0 medroxyprogesterone 150 mg/mL syringe 150 mg IM DIRECTED RF: 0 No Action levothyroxine [Levoxyl] 150 mcg tablet 150 mcg PO DAILY Qty: 30 RF: 5 Discharge Orders: Discharge Order (Routine); Ordered 08/10/20 Ordered By: Bettie Watson Admission Data Admit Date/Time: 08/09/20 02:34 Attending Provider: Robbin Galloway Admit Provider: Lynnette Sanon Primary Care Provider: Chio Curran Other Providers: Lynnette Sanon ; Judy Evans Other Interventions: Discharge Summary Assessment (RN) Last Done: 08/10/20 16:14 Coding Level of Care Code D/C Day Management >30 mins Diagnoses Pulmonary embolism I26.99 Acute cor pulmonale presence: without acute cor pulmonale Chronicity: acute Pulmonary embolism type: unspecified Chronic sinusitis, unspecified J32.9 Sinusitis location: unspecified location Hypothyroidism E03.8; E06.3 Hypothyroidism type: due to Jess's thyroiditis GERD (gastroesophageal reflux disease) K21.9 Headache R51.9
[2020-08-10] MEDS ORDERED: OPTIRAY 320 125ml IV ONE (19:33)
--- NOTE | 2020-08-10 20:00 | CT Scan Report ---
CT VENOGRAM OF THE BRAIN CLINICAL HISTORY: Headache. Pulmonary embolus. COMPARISON STUDY: Unenhanced CT of the brain performed the same day 08/10/2020. TECHNIQUE: Following the IV administration of 116 cc of Optiray 320, CT venogram of the brain was per formed from the skull base to the vertex. Images are reviewed in the axial, sagittal, and coronal brandyn mikal. 3-D MIPS images are created and assessed. IV contrast was administered without complication. A dose lowering technique was utilized adhering to the principles of ALARA. CT DOSE: 114.02 mGy.cm FINDINGS: Brain parenchyma: The brain parenchyma is normal in appearance. There is no hemorrhage, mass effect, or evidence of acute territorial ischemia by CT criteria. There is no evidence of enhancing mass lesi on on these venogram phase images. No extra-axial fluid collection is seen. Salazar-white matter differe ntiation is preserved. Ventricles, sulci, and cisterns: Normal in configuration. Dural sinuses: The dural sinuses and internal jugular veins are widely patent. There is no evidence o f sinus thrombosis. Intracranial vasculature: The intracranial arteries are widely patent noting venogram technique. Orbits: The bony orbits are intact. The orbital contents are normal as visualized. Sinuses and mastoids: The visualized paranasal sinuses are clear. The mastoid air cells are well pneu matized. Calvarium: Unremarkable. IMPRESSION: 1. No acute intracranial abnormality. 2. Normal CT venogram of the brain. ACT 112: Negative or not required by law. Electronically signed by: Humza Cates M.D. 08/10/2020 7:58 PM
[2020-08-14 09:09] LABS: Anti Cardiolipin Ab IgG <14 GPL; Anti Cardiolipin Ab IgM <12 MPL; B2 Glycoprotein IgG <9 SGU (<=20); B2 Glycoprotein IgM <9 SMU (<=20); Protein S Functional(Activity) 81 % (60-140)
== END 2020-08-10 21:42 | disposition home or self-care (01) | DRG 176 ==
LOC: ED 21:00 → 2W 08-09 02:34 → SUATTDRO 08-09 02:34 → 2W 08-09 04:13

== ENCOUNTER 2021-10-18 14:36 | Observation (INO) ==
[2021-10-18] MEDS ORDERED: GI COCKTAIL ED USE PO ONE (14:51)
[2021-10-18] MEDS ORDERED: SODIUM CHLORIDE 0.9% 1000ML 1,000 ML IV STA (14:51)
[2021-10-18] MEDS ORDERED: SUCRALFATE 1 GM TAB PO STA (14:51)
[2021-10-18] MEDS ORDERED: FAMOTIDINE 20MG/5ML IV PUSH IV STA (14:51)
--- NOTE | 2021-10-18 15:00 | Emergency Department Note ---
History of Present Illness General Chief complaint: Abdominal Pain Stated complaint: UPPER MID ABDOMINAL PAIN, NAUSEA Time Seen by Provider: 10/18/21 14:41 Source: patient History of Present Illness Provider complaint: Abdominal pain Onset (ago): hour(s) Location: abdomen Radiation: non-radiation Pain Consistency: + constant Maximum Pain Intensity: 7 Quality: + burning and + sharp Exacerbated By: + eating Associated symptoms: no chest pain, no cough, no fever/chills, no nausea/vom iting or no shortness of breath This is a 31-year-old female who presents with abdominal pain starting at 8 AM today. She describes it as a sharp and burning pain. She states it feels si milar to her pancreatitis which she had in 2009. The pancreatitis was idiopathic and she does not drink alcohol and she has had a cholecystectomy. The pain is worse after she eats. She took Tylenol for this with minimal relief. She does state that she had endoscopy in June of last year at [facility]. She was told that she had significant inflammation to her stomach due to her chronic prednisone use. She is on a proton pump inhibitor chronically with which she has been compliant. She was also diagnosed with COVID-19 on the of this month. She is vaccinated but did not have her booster. She did receive monoclonal antibodies in [place]. She was seen here for chest pain the day after she was diagnosed with COVID-19. She states her work-up was negative and her chest pain is now resolved. She denies any chest pain or shortness of breath at this time. She has had no fever or cough or cold symptoms. She has had loose stools but denies melena or hematochezia. She does state that she has lost some of her taste sensation. She denies any leg swelling or pain. She states that she broke her ankle months ago and that is why she wears a brace on the right leg. Home Medications Medication Instructions Recorded Confirmed Type cyclobenzaprine 10 mg tablet 10 mg PO HS PRN 03/03/19 10/18/21 History famotidine 40 mg tablet 40 mg PO HS 03/03/19 10/18/21 History ketoconazole 2 % shampoo 1 applic TOPICAL DIRECTED 03/03/19 10/18/21 History multivitamin 1 tab PO HS 03/03/19 10/18/21 History omeprazole 20 mg tablet,delayed 20 mg PO BID 03/03/19 10/18/21 History release gabapentin 600 mg tablet 600 mg PO BID 08/18/20 10/18/21 History ondansetron 4 mg disintegrating 4 mg PO Q6H PRN 08/18/20 10/18/21 History tablet promethazine 25 mg tablet 25 mg PO Q6H PRN 08/18/20 10/18/21 History medroxyprogesterone 150 mg/mL 150 mg IM .COMPLEX 10/11/20 10/18/21 History intramuscular suspension albuterol sulfate 90 mcg/actuation 1 inh INHALATION QID PRN #1 ea 10/12/20 10/18/21 Rx breath activated powder inhaler mupirocin 2 % topical ointment 1 applic TOPICAL BID #15 g 01/03/21 10/18/21 Rx sumatriptan succinate 50 mg tablet 50 mg PO DAILY PRN #10 tab 01/10/21 10/18/21 Rx clotrimazole 10 mg itzel 10 mg MUCOUS MEMBRANE TID PRN 02/19/21 10/18/21 Histo ry belimumab 200 mg/mL subcutaneous 200 mg SUBCUT WK 03/05/21 10/18/21 History auto-injector (Benlysta) metoprolol succinate 100 mg 100 mg PO HS 04/16/21 10/18/21 History tablet,extended release 24 hr (Toprol XL) hydroxychloroquine 200 mg tablet 200 mg PO BID 05/22/21 10/18/21 History (Plaquenil) fluconazole 200 mg tablet See Rx Instructions PO .COMPLEX 07/04/21 10/18/21 History warfarin 5 mg tablet See Rx Instructions PO UD #90 tab 07/29/21 10/18/21 Rx fremanezumab-vfrm 225 mg/1.5 mL 225 mg SUBCUT MONTHLY #1.5 ml 08/06/21 10/18/21 Rx subcutaneous auto-injector (Ajovy) cholecalciferol (vitamin D3) 1,250 50,000 unit PO .COMPLEX #14 cap 09/02/21 10/18/21 Rx mcg (50,000 unit) capsule (D3-50 Cholecalciferol) levothyroxine 150 mcg tablet 150 mcg PO QAM #30 tab 09/02/21 10/18/21 Rx (Levoxyl) losartan 25 mg tablet 25 mg PO DAILY #30 tab 09/26/21 10/18/21 Rx potassium chloride 20 mEq 20 meq PO DAILY #30 tab 09/26/21 10/18/21 Rx tablet,extended release nortriptyline 25 mg capsule 25 mg PO DAILY cap 09/30/21 10/18/21 History prednisone 1 mg tablet 8 mg PO DAILY tab 09/30/21 10/18/21 History spironolactone 100 mg tablet See Rx Instructions PO DAILY@1200 09/30/21 10/18/21 History tab Allergies Allergy/AdvReac Type Severity Reaction Status Date / Time egg Allergy Severe Anaphylaxis Verified 10/05/21 19:11 Penicillins Allergy Intermediate Rash Verified 10/05/21 19:11 Sulfa (Sulfonamide Allergy Mild Rash Verified 10/05/21 19:11 Antibiotics) metformin AdvReac Intermediate Diarrhea Verified 10/05/21 19:11 metoclopramide AdvReac Mild SHAKY Verified 10/05/21 19:11 Past Med/Surg History Medical History Abnormal menses Acute pancreatitis (12/16/12) Anemia Ankylosing spondylitis Class 2 obesity in adult Daytime sleepiness Depressive disorder, not elsewhere classified (12/16/12) Encounter for visit Encounter for routine gynecological examination with Papanicolaou smear of cervix Fatigue Gastro-esophageal reflux disease with esophagitis (12/16/12) Gastroparesis Jess's disease High risk medication use History of lupus anticoagulant disorder History of pulmonary embolus (PE) History of vasculitis Hypokalemia Hypothyroidism Irritable bowel syndrome (12/16/12) Labor established (08/02/13) Laryngopharyngeal reflux Lupus Malabsorption Obesity Obesity (BMI 30-39.9) FELECIA (obstructive sleep apnea) Other pulmonary embolism and infarction (12/16/12) Palpitations PCOS (polycystic ovarian syndrome) Pleurisy Polycystic ovaries (12/16/12) Recurrent pulmonary embolism Salt craving Sensorineural hearing loss (SNHL) of right ear with unrestricted hearing of left ear Shortness of breath Snoring Tachycardia Vitamin D deficiency Vulvovaginitis Surgical History History of arthroscopy History of knee surgery Meniscus repair left - 2016,2019 Meniscus repair right - 20092011 History of surgery on wrist History of tooth extraction History of wisdom tooth extraction Hx of cholecystectomy Family History Grandmother (Maternal) Breast cancer Mother Hypertension Asthma Grandmother Hypertension Cancer Father Hearing loss Other Allergies Coronary heart disease Diabetes Dyslipidemia Emphysema, unspecified Heart disease No family history of adverse response to anesthesia No family history of bleeding disorder No pertinent family history in first degree relatives Denies family history of Lung disease Social History Smoking Status: Never smoker Second Hand Exposure: No; Hx Alcohol Use: No Hx Substance Use: No Preferred Language: Thai Communication Ability: Effective Field Operator Required: No Beliefs That Will Affect Care: None marital status: Current Living Situation: Spouse current occupational status: employed current occupation: [employer] Feels Safe at Home: Yes Assistive Devices: None Review of Systems See HPI for pertinent positives & negatives. and A total of 10 systems reviewed and were otherwise negative Physical Exam Vital Signs Vital Signs - 24 hr 10/18/21 14:38 10/18/21 15:41 10/18/21 17:00 Temperature 36.4 C L Temperature Source Oral Pulse Rate 118 H Pulse Rate [Apical] 100 H Pulse Rhythm [Apical] Regular Respiratory Rate 20 18 18 Respiratory Effort / Characteristics Non-Labored Spontaneous Non-Labored Non-Labored Respiratory Depth Normal Normal Normal Respiratory Pattern Regular Regular Blood Pressure 136/91 Blood Pressure [Left Arm] 120/67 111/74 Blood Pressure Mean 106 Blood Pressure Mean [Left Arm] 84 86 Blood Pressure Position [Left Arm] Lying Lying Pulse Oximetry 98 100 99 Oxygen Delivery Method Room Air Room Air Room Air Sepsis Recent Fever Within 48 Hours No Sepsis New/Unexplained Change in Mental Status No Sepsis Action Taken by Nursing No Action Required Constitutional: Vital signs reviewed. Eyes: Pupils are equal round reactive to light. Conjunctiva are noninjected. ENT: Pharynx is clear without erythema or exudate. Mucous membranes are dry. Neck supple without meningeal signs. Respiratory: Clear to auscultation bilaterally. Breath sounds are equal bilaterally. Cardiovascular: Tachycardic. Heart rate 120. GI: Soft, nondistended with epigastric tenderness. No guarding. Bowel sounds are present. Musculoskeletal: No peripheral edema. No lower extremity tenderness. Right leg is in a walking boot. Mild left CVA tenderness. Integumentary: No cyanosis. or jaundice. Neurological: The patient is awake and alert. No focal deficits. Psychiatric: Normal affect. Not anxious appearing. Course Administered Medications Discontinued Medications Al Hydrox/Mg Hydrox/Simethicone (Gi Cocktail Ed Use) 1 dose PO ONE ONE Stop: 10/18/21 14:52 Last Admin: 10/18/21 15:27 Dose: 1 dose Documented by: [id number] Famotidine (Famotidine 20mg/5ml Iv Push) 20 mg IV ONE STA Stop: 10/18/21 14:52 Last Admin: 10/18/21 15:28 Dose: 20 mg Documented by: [id number] Sodium Chloride (Nss 1000ml) 1,000 mls @ 999 mls/hr IV .Q1H1M STA Stop: 10/18/21 15:51 Last Infusion: 10/18/21 16:37 Dose: 0 mls/hr Documented by: [id number] Admin: 10/18/21 15:29 Dose: 999 mls/hr Documented by: [id number] Ceftriaxone Sodium (Rocephin) 2,000 mg in 70 mls @ 140 mls/hr IV NOW STA Stop: 10/18/21 16:45 Last Infusion: 10/18/21 18:00 Dose: 0 mls/hr Documented by: [id number] Admin: 10/18/21 17:17 Dose: 140 mls/hr Documented by: [id number] Ioversol (Optiray 320 100ml) 91 ml IV ONCE ONE Stop: 10/18/21 16:47 Last Admin: 10/18/21 16:46 Dose: 91 ml Documented by: [id number] Sucralfate (Sucralfate 1 Gm Tab) 1 gm PO NOW STA Stop: 10/18/21 14:52 Last Admin: 10/18/21 15:27 Dose: 1 gm Documented by: [id number] Medical Decision Making Differential Diagnosis Peptic ulcer disease, gastritis, pancreatitis, choledocholithiasis, irritable bowel syndrome Medical Records Attestation: I reviewed the patient's medical records. I did perform a limited focused review of portions of the patient's old chart on the electronic medical record. The patient was seen here on October 05 for chest pain. This was thought to be musculoskeletal after she had a CT of the est which did not show any evidence of pulmonary embolism. Her INR at that time was 2.3. Home Medications Current Medication List: was personally reviewed by me Laboratory Data Attestation: I reviewed the patient's lab results. Result diagrams: 10/18/21 15:20 10/18/21 15:20 Lab Results 10/18/21 10/18/21 10/18/21 Range/Units 15:05 15:05 15:20 WBC 20.48 H (4.8-10.8) K/uL RBC 5.16 (4.2-5.4) M/uL Hgb 14.7 (12.0-16.0) g/dL Hct 43.5 (37-47) % MCV 84.3 (80-100) fL MCH 28.5 (25-34) pg MCHC 33.8 (32-36) g/dL RDW Std Deviation 44.3 (36.4-46.3) fL RDW Coeff of Axel 14.3 (11.5-14.5) % Plt Count 346 (130-400) K/uL MPV 9.5 (7.4-10.4) fL Immature Gran % (Auto) 0.8 % Neut % (Auto) 79.4 % Lymph % (Auto) 13.0 % [place] % (Auto) 6.4 % Eos % (Auto) 0.3 % Baso % (Auto) 0.1 % Neut # (Auto) 16.25 H (1.4-6.5) K/uL Lymph # (Auto) 2.67 (1.2-3.4) K/uL [place] # (Auto) 1.31 H (0.11-0.59) K/uL Eos # (Auto) 0.07 (0-0.5) K/uL Baso # (Auto) 0.02 (0-0.2) K/uL Immature Gran # (Auto) 0.16 H (0.00-0.02) K/uL PT (9.0-12.0) Seconds INR (0.9-1.1) Sodium (136-145) mmol/L Potassium (3.5-5.1) mmol/L Chloride (98-107) mmol/L Carbon Dioxide (21-32) mmol/L Anion Gap (3-11) BUN (6-23) mg/dl Creatinine (0.6-1.2) mg/dl Est Cr Clr Drug Dosing ml/min Est GFR ( Amer) ml/min Est GFR (Non-Af Amer) ml/min BUN/Creatinine Ratio (10-20) Glucose (70-99(Fasting)) mg/dl Lactate (0.4-2.0) mmol/L Calcium (8.5-10.1) mg/dl Total Bilirubin (0.2-1.0) mg/dl AST (13-39) U/L ALT (7-52) U/L Alkaline Phosphatase (34-104) U/L Total Protein (6.0-8.3) gm/dl Albumin (3.4-5.0) gm/dl Globulin (2.5-4.0) gm/dl Albumin/Globulin Ratio (0.9-2) Lipase (11-82) U/L Urine Color Dark Yellow Urine Appearance Cloudy A (Clear) Urine pH 5.5 (4.5-7.5) Ur Specific [place] 1.027 (1.000-1.030) Urine Protein 1+ H (Negative) Urine Glucose (UA) Negative (Negative) Urine Ketones Trace H (Negative) Urine Blood Negative (Negative) Urine Nitrite Negative (Negative) Urine Bilirubin 1+ H (Negative) Urine Urobilinogen Negative (Negative) Ur Leukocyte Esterase Trace H (Negative) Urine WBC (Auto) >30 H (0-5) /hpf Urine RBC (Auto) 5-10 H (0-4) /hpf U Hyaline Cast (Auto) 0 (0-5) /lpf U Epithel Cells (Auto) >30 H (0-5) /lpf Urine Bacteria (Auto) 1+ H (Negative) POC Ur Test NEG (NEG) SARS-CoV-2, RNA, NAAT (NEGATIVE) 10/18/21 10/18/21 10/18/21 Range/Units 15:20 15:20 16:58 WBC (4.8-10.8) K/uL RBC (4.2-5.4) M/uL Hgb (12.0-16.0) g/dL Hct (37-47) % MCV (80-100) fL MCH (25-34) pg MCHC (32-36) g/dL RDW Std Deviation (36.4-46.3) fL RDW Coeff of Axel (11.5-14.5) % Plt Count (130-400) K/uL MPV (7.4-10.4) fL Immature Gran % (Auto) % Neut % (Auto) % Lymph % (Auto) % [place] % (Auto) % Eos % (Auto) % Baso % (Auto) % Neut # (Auto) (1.4-6.5) K/uL Lymph # (Auto) (1.2-3.4) K/uL [place] # (Auto) (0.11-0.59) K/uL Eos # (Auto) (0-0.5) K/uL Baso # (Auto) (0-0.2) K/uL Immature Gran # (Auto) (0.00-0.02) K/uL PT 23.8 H (9.0-12.0) Seconds INR 2.5 H (0.9-1.1) Sodium 138 (136-145) mmol/L Potassium 3.8 (3.5-5.1) mmol/L Chloride 104 (98-107) mmol/L Carbon Dioxide 25 (21-32) mmol/L Anion Gap 9 (3-11) BUN 9 (6-23) mg/dl Creatinine 0.96 (0.6-1.2) mg/dl Est Cr Clr Drug Dosing 94.7 ml/min Est GFR ( Amer) 90.7 ml/min Est GFR (Non-Af Amer) 78.3 ml/min BUN/Creatinine Ratio 9.4 L (10-20) Glucose 76 (70-99(Fasting)) mg/dl Lactate 1.5 (0.4-2.0) mmol/L Calcium 9.2 (8.5-10.1) mg/dl Total Bilirubin 1.3 H (0.2-1.0) mg/dl AST 22 (13-39) U/L ALT 27 (7-52) U/L Alkaline Phosphatase 91 (34-104) U/L Total Protein 7.1 (6.0-8.3) gm/dl Albumin 4.2 (3.4-5.0) gm/dl Globulin 2.9 (2.5-4.0) gm/dl Albumin/Globulin Ratio 1.4 (0.9-2) Lipase 59 (11-82) U/L Urine Color Urine Appearance (Clear) Urine pH (4.5-7.5) Ur Specific [place] (1.000-1.030) Urine Protein (Negative) Urine Glucose (UA) (Negative) Urine Ketones (Negative) Urine Blood (Negative) Urine Nitrite (Negative) Urine Bilirubin (Negative) Urine Urobilinogen (Negative) Ur Leukocyte Esterase (Negative) Urine WBC (Auto) (0-5) /hpf Urine RBC (Auto) (0-4) /hpf U Hyaline Cast (Auto) (0-5) /lpf U Epithel Cells (Auto) (0-5) /lpf Urine Bacteria (Auto) (Negative) POC Ur Test (NEG) SARS-CoV-2, RNA, NAAT (NEGATIVE) 10/18/21 Range/Units 18:29 WBC (4.8-10.8) K/uL RBC (4.2-5.4) M/uL Hgb (12.0-16.0) g/dL Hct (37-47) % MCV (80-100) fL MCH (25-34) pg MCHC (32-36) g/dL RDW Std Deviation (36.4-46.3) fL RDW Coeff of Axel (11.5-14.5) % Plt Count (130-400) K/uL MPV (7.4-10.4) fL Immature Gran % (Auto) % Neut % (Auto) % Lymph % (Auto) % [place] % (Auto) % Eos % (Auto) % Baso % (Auto) % Neut # (Auto) (1.4-6.5) K/uL Lymph # (Auto) (1.2-3.4) K/uL [place] # (Auto) (0.11-0.59) K/uL Eos # (Auto) (0-0.5) K/uL Baso # (Auto) (0-0.2) K/uL Immature Gran # (Auto) (0.00-0.02) K/uL PT (9.0-12.0) Seconds INR (0.9-1.1) Sodium (136-145) mmol/L Potassium (3.5-5.1) mmol/L Chloride (98-107) mmol/L Carbon Dioxide (21-32) mmol/L Anion Gap (3-11) BUN (6-23) mg/dl Creatinine (0.6-1.2) mg/dl Est Cr Clr Drug Dosing ml/min Est GFR ( Amer) ml/min Est GFR (Non-Af Amer) ml/min BUN/Creatinine Ratio (10-20) Glucose (70-99(Fasting)) mg/dl Lactate (0.4-2.0) mmol/L Calcium (8.5-10.1) mg/dl Total Bilirubin (0.2-1.0) mg/dl AST (13-39) U/L ALT (7-52) U/L Alkaline Phosphatase (34-104) U/L Total Protein (6.0-8.3) gm/dl Albumin (3.4-5.0) gm/dl Globulin (2.5-4.0) gm/dl Albumin/Globulin Ratio (0.9-2) Lipase (11-82) U/L Urine Color Urine Appearance (Clear) Urine pH (4.5-7.5) Ur Specific [place] (1.000-1.030) Urine Protein (Negative) Urine Glucose (UA) (Negative) Urine Ketones (Negative) Urine Blood (Negative) Urine Nitrite (Negative) Urine Bilirubin (Negative) Urine Urobilinogen (Negative) Ur Leukocyte Esterase (Negative) Urine WBC (Auto) (0-5) /hpf Urine RBC (Auto) (0-4) /hpf U Hyaline Cast (Auto) (0-5) /lpf U Epithel Cells (Auto) (0-5) /lpf Urine Bacteria (Auto) (Negative) POC Ur Test (NEG) SARS-CoV-2, RNA, NAAT NEGATIVE (NEGATIVE) Imaging Data Radiologist's Impression: Abdomen/Pelvis CT 10/18/21 15:34 CT abd pelvis IV con only CLINICAL HISTORY: upper abd pain WBC 20 TECHNIQUE: Helical axial images of the abdomen and pelvis were obtained and displayed. Automated dose lowering techniques and/or adjustment according to patient size were utilized for this exam. This exam was performed with intraven ous contrast. COMPARISON: None available at the time of this dictation. FINDINGS: Lower chest: No acute abnormality Liver: Unremarkable. No focal lesions are seen. Gallbladder and biliary tree: Patient is status post cholecystectomy. No intra- or extrahepatic biliary ductal dilation. Pancreas: Unremarkable, no focal lesions. Spleen: Unremarkable. Adrenals: Unremarkable. Kidneys and ureters: Unremarkable. Bladder: Unremarkable. Reproductive organs: Unremarkable. Bowel: Unremarkable appearance of the bowel. The appendix is normal. Lymph nodes Retroperitoneal: Unremarkable. Mesenteric: Unremarkable. Pelvic: Unremarkable. Peritoneum: Normal. Vessels: Unremarkable. Abdominal wall: Unremarkable. Bones: Unremarkable. IMPRESSION: No acute abnormalities. ACT 112: Negative or not required by law. Electronically signed by: Bautista Silverman M.D. 10/18/2021 4:56 PM Chest X-Ray 10/18/21 15:39 XR chest 1V portable CLINICAL HISTORY: WBC 20 eval for pna COMPARISON STUDY: Chest radiograph and chest CT October 05, 2021. FINDINGS: Lung volumes are normal. Lungs are clear. There is no pneumothorax or pleural effusion. Cardiac size is normal. Mediastinal contours are normal. There is no evidence for pulmonary edema. IMPRESSION: No acute cardiopulmonary findings. ACT 112: Negative or not required by law. Electronically signed by: Nilesh Kirkpatrick M.D. 10/18/2021 4:08 PM [facility] Narrative I did evaluate the patient as noted above. Patient is presenting with upper abdominal pain on the left side. She is tender in the left upper quadrant and back but gastric region. She has a prior history of peptic ulcer disease. I did treat her with Carafate as well as a GI cocktail. IV access was established. She was given Pepcid IV as well as normal saline IV. I did order a urine analysis. She does appear to have signs of UTI. She is not . Urine culture was sent. I did order and review the patient's blood work as noted in the electronic medical record. Her white count is over 20,000. She is not anemic. She has an INR 2.5. Electrolytes and LFTs are unremarkable. Lipase is within normal limits. Did order a CT of the abdomen and pelvis. I did review the images myself as well as the radiology report as described above. There is no evidence of acute pathology. I did reassess the patient. She remains tachycardic at a heart rate about 105. I did discuss the test results with her. At this time it seems she likely has a pyelonephritis. I did recommend hospitalization and treated her with ceftriaxone 2 g IV. I did discuss case with the hospitalist and transplant case manager. Screening test for COVID-19 is negative. Impression & Plan Acute pyelonephritis, Tachycardia, Leukocytosis, Anticoagulated on Coumadin Discharge Plan Visit Data Chief Complaint: Abdominal Pain Stated Complaint: UPPER MID ABDOMINAL PAIN, NAUSEA ED Provider: Robbin Vizcaino Discharge Problem: Acute pyelonephritis, Tachycardia, Leukocytosis, Anticoagulated on Coumadin Patient Disposition: Being Evaluated by Hospitalist Forms Stand Alone Forms: My [facility] Prescriptions Prescriptions: No Action clotrimazole 10 mg itzel 10 mg mucous membrane TID PRN (Reason: .) RF: 0 hydroxychloroquine [Plaquenil] 200 mg tablet 200 mg PO BID RF: 0 fluconazole 200 mg tablet See Rx Instructions PO .COMPLEX RF: 0 warfarin 5 mg tablet See Rx Instructions PO UD Qty: 90 RF: 0 Benlysta 200 mg/mL auto-injector 200 mg subcut WK RF: 0 prednisone 1 mg tablet 8 mg PO DAILY RF: 0 potassium chloride 20 mEq tablet extended release 20 meq PO DAILY Qty: 30 RF: 6 losartan 25 mg tablet 25 mg PO DAILY Qty: 30 RF: 2 albuterol sulfate 90 mcg/actuation aerosol powdr breath activated 1 inh inhalation QID PRN (Reason: shortness of breath or wheezing) Qty: 1 RF: 0 mupirocin 2 % ointment 1 applic topical BID Qty: 15 RF: 2 cholecalciferol (vitamin D3) [D3-50 Cholecalciferol] 1,250 mcg (50,000 unit) capsule 50,000 unit PO .COMPLEX Qty: 14 RF: 0 levothyroxine [Levoxyl] 150 mcg tablet 150 mcg PO QAM Qty: 30 RF: 3 Ajovy Autoinjector 225 mg/1.5 mL auto-injector 225 mg subcut MONTHLY Qty: 1.5 RF: 11 sumatriptan succinate 50 mg tablet 50 mg PO DAILY PRN (Reason: Migraine Headache) Qty: 10 RF: 2 nortriptyline 25 mg capsule 25 mg PO DAILY RF: 0 spironolactone 100 mg tablet See Rx Instructions PO DAILY@1200 RF: 0 multivitamin Tablet 1 tab PO HS RF: 0 cyclobenzaprine 10 mg tablet 10 mg PO HS PRN (Reason: Muscle Spasm) RF: 0 ketoconazole 2 % shampoo 1 applic topical DIRECTED RF: 0 famotidine 40 mg tablet 40 mg PO HS RF: 0 omeprazole 20 mg Tablet,Delayed Release (Dr/Ec) 20 mg PO BID RF: 0 gabapentin 600 mg tablet 600 mg PO BID RF: 0 promethazine 25 mg tablet 25 mg PO Q6H PRN (Reason: Nausea And Vomiting) RF: 0 ondansetron 4 mg tablet,disintegrating 4 mg PO Q6H PRN (Reason: Nausea And Vomiting) RF: 0 medroxyprogesterone 150 mg/mL suspension 150 mg IM .COMPLEX RF: 0 metoprolol succinate [Toprol XL] 100 mg tablet extended release 24 hr 100 mg PO HS RF: 0 Referrals Referrals: Chio Curran DO [Primary Care Provider] -
[2021-10-18 15:26] LABS: Basophils # (auto) 0.02 K/uL (0-0.2); Basophils % (auto) 0.1 %; Eosinophils # (auto) 0.07 K/uL (0-0.5); Eosinophils % (auto) 0.3 %; Hematocrit (blood only) 43.5 % (37-47); Hemoglobin 14.7 g/dL (12.0-16.0); Immature Granulocytes # (auto) 0.16 K/uL (0.00-0.02); Immature Granulocytes % (auto) 0.8 %; Lymphocytes # (auto) 2.67 K/uL (1.2-3.4); Mean Corpuscular Hemoglobin 28.5 pg (25-34); Mean Corpuscular Hgb Conc 33.8 g/dL (32-36); Mean Corpuscular Volume 84.3 fL (80-100); Mean Platelet Volume 9.5 fL (7.4-10.4); Monocytes # (auto) 1.31 K/uL (0.11-0.59); Monocytes % (auto) 6.4 %; Neutrophils # (auto) 16.25 K/uL (1.4-6.5); Neutrophils % (auto) 79.4 %; Platelet Count 346 K/uL (130-400); RDW Coefficient of Variation 14.3 % (11.5-14.5); RDW Standard Deviation 44.3 fL (36.4-46.3); Red Blood Count 5.16 M/uL (4.2-5.4); White Blood Count 20.48 K/uL (4.8-10.8)
[2021-10-18 15:39] LABS: INR 2.5 (0.9-1.1); Prothrombin Time 23.8 Seconds (9.0-12.0)
[2021-10-18 15:50] LABS: Appearance Urine Cloudy (Clear); Bacteria Urine Automated 1+ (Negative); Blood Urine Negative (Negative); Color Urine Dark Yellow; Epithelial Cell Urine Auto >30 /lpf (0-5); Glucose Urine UA Negative (Negative); Ketones Urine Trace (Negative); Leukocyte Esterase Urine Trace (Negative); Nitrite Urine Negative (Negative); Protein Urine 1+ (Negative); Specific Gravity Urine 1.027 (1.000-1.030); Urobilinogen Urine Negative (Negative); WBC Urine Automated >30 /hpf (0-5); pH Urine 5.5 (4.5-7.5)
[2021-10-18 15:58] LABS: Bilirubin Urine 1+ (Negative)
[2021-10-18 16:02] LABS: Albumin Globulin Ratio 1.4 (0.9-2); Albumin Level 4.2 gm/dl (3.4-5.0); BUN Creatinine Ratio 9.4 (10-20); Bilirubin,Total 1.3 mg/dl (0.2-1.0); Calcium 9.2 mg/dl (8.5-10.1); Creatinine Clr Calc Pharmacy 94.7 ml/min; Est GFR (African American) 90.7 ml/min; Est GFR (Non-African American) 78.3 ml/min; Globulin 2.9 gm/dl (2.5-4.0); Potassium 3.8 mmol/L (3.5-5.1); Total Protein 7.1 gm/dl (6.0-8.3)
--- NOTE | 2021-10-18 16:09 | XRay Report ---
XR chest 1V portable CLINICAL HISTORY: WBC 20 eval for pna COMPARISON STUDY: Chest radiograph and chest CT October 05, 2021. FINDINGS: Lung volumes are normal. Lungs are clear. There is no pneumothorax or pleural effusion. Car diac size is normal. Mediastinal contours are normal. There is no evidence for pulmonary edema. IMPRESSION: No acute cardiopulmonary findings. ACT 112: Negative or not required by law. Electronically signed by: Nilesh Kirkpatrick M.D. 10/18/2021 4:08 PM
[2021-10-18 16:11] LABS: Cast Urine Automated 0 /lpf (0-5)
[2021-10-18] MEDS ORDERED: cefTRIAXone SODIUM 2,000 MG/70 ML BAG IV STA (16:16)
[2021-10-18] MEDS ORDERED: OPTIRAY 320 100ml IV ONE (16:46)
--- NOTE | 2021-10-18 16:58 | CT Scan Report ---
CT abd pelvis IV con only CLINICAL HISTORY: upper abd pain WBC 20 TECHNIQUE: Helical axial images of the abdomen and pelvis were obtained and displayed. Automated dose lowering techniques and/or adjustment according to patient size were utilized for this exam. This e xam was performed with intravenous contrast. COMPARISON: None available at the time of this dictation. FINDINGS: Lower chest: No acute abnormality Liver: Unremarkable. No focal lesions are seen. Gallbladder and biliary tree: Patient is status post cholecystectomy. No intra- or extrahepatic bilia ry ductal dilation. Pancreas: Unremarkable, no focal lesions. Spleen: Unremarkable. Adrenals: Unremarkable. Kidneys and ureters: Unremarkable. Bladder: Unremarkable. Reproductive organs: Unremarkable. Bowel: Unremarkable appearance of the bowel. The appendix is normal. Lymph nodes Retroperitoneal: Unremarkable. Mesenteric: Unremarkable. Pelvic: Unremarkable. Peritoneum: Normal. Vessels: Unremarkable. Abdominal wall: Unremarkable. Bones: Unremarkable. IMPRESSION: No acute abnormalities. ACT 112: Negative or not required by law. Electronically signed by: Bautista Silverman M.D. 10/18/2021 4:56 PM
--- NOTE | 2021-10-18 18:15 | History & Physical Report ---
Date of Service October 18, 2021 Assessment & Plan (1) Sepsis: Plan: 31 yo female with a PMHx of lupus anticoagulant on Coumadin and prednisone, GERD, recent COVID (tested negative today), pulmonary embolism, and chronic migraines presented to the ER with abdominal pain. (1) Urosepsis -patient meets sepsis criteria, however, uncertain if truly septic due to chronically elevated HR 2/2 lupus -WBC 20k, Lactate 1.5 -UA: pos leukocyte esterase w/ pyuria -CT abd/pelvis: unremarkable, no nephrolithiasis -1L NSS given in ED -2g ceftriaxone x1 in ED, cont. -blood and urine cultures pending -procalcitonin ordered -CBC, CMP am (2) Abdominal pain -presented with upper abdominal pain radiating to mid back -ddx 2/2 urospesis vs peptic ulcer disease vs gastritis -1L NSS given in ED -CT abd/pelvis unremarkable -lipase WNL -cont. to monitor (3) Lupus anticoagulant -INR 2.5 on coumadin, cont. home dose -cont. home gabapentin, hydroxychloroquine, plaquenil, benlysta, prednisone, spironolactone -cont. home metoprolol for chronic tachycardia secondary to lupus -cont. home fluconazole for recurrent thrush 2/2 chronic steroid use (4) GERD -cont. home pepcid, omeprazole (5) Chronic Migraines -cont. home sumatriptan, nortriptyline, ajovy (6) Hypothyroidism -cont. home levothyroxine DVT ppx: Warfarin 5mg UD FEN/GI: Regular Code Status: Full Dispo: med/surg (2) Lupus: (3) GERD (gastroesophageal reflux disease): (4) Hypothyroidism: (5) Migraines: History of Present Illness Chief Complaint: Abdominal pain Primary Care Provider: Chio Curran DO 31 yo female with a PMHx of lupus anticoagulant on coumadin and prednisone, GERD, recent COVID (tested negative today), pulmonary embolism, and chronic migr aines presented to the ER with abdominal pain. Pain started around 8 am this morning in her middle upper abdomen. Sharp, burning pain, constant. Worsened throughout the day. Some radiation to mid back, however, has chronic back pains from lupus. She tried taking tylenol which did not seem to help. Denies vomiting, melena, hematochezia. She has had pancreatitis in the past which was idiopathic and had a cholecystectomy. She had an endoscopy this past June which showed some inflammation and lesions possibly from chronic steroid use but no further treatment was necessary. She did test positive for COVID 2 weeks ago, is COVID vaccinated without booster (2nd vaccination was on Oct 02) and did receive monoclonal antibodies. She also does state that since she had a PE 2 years ago, she has been chronically tachycardic due to her lupus and has been taking metoprolol for better control. Allergies Allergy/AdvReac Type Severity Reaction Status Date / Time egg Allergy Severe Anaphylaxis Verified 10/05/21 19:11 Penicillins Allergy Intermediate Rash Verified 10/05/21 19:11 Sulfa (Sulfonamide Allergy Mild Rash Verified 10/05/21 19:11 Antibiotics) metformin AdvReac Intermediate Diarrhea Verified 10/05/21 19:11 metoclopramide AdvReac Mild SHAKY Verified 10/05/21 19:11 Home Medications Medication Instructions Recorded Confirmed Type cyclobenzaprine 10 mg tablet 10 mg PO HS PRN 03/03/19 10/21/21 History famotidine 40 mg tablet 40 mg PO HS 03/03/19 10/21/21 History ketoconazole 2 % shampoo 1 applic TOPICAL DIRECTED 03/03/19 10/21/21 History multivitamin 1 tab PO HS 03/03/19 10/21/21 History omeprazole 20 mg tablet,delayed 20 mg PO BID 03/03/19 10/21/21 History release gabapentin 600 mg tablet 600 mg PO BID 08/18/20 10/21/21 History ondansetron 4 mg disintegrating 4 mg PO Q6H PRN 08/18/20 10/21/21 History tablet promethazine 25 mg tablet 25 mg PO Q6H PRN 08/18/20 10/21/21 History medroxyprogesterone 150 mg/mL 150 mg IM .COMPLEX 10/11/20 10/21/21 History intramuscular suspension albuterol sulfate 90 mcg/actuation 1 inh INHALATION QID PRN #1 ea 10/12/20 10/21/21 Rx breath activated powder inhaler mupirocin 2 % topical ointment 1 applic TOPICAL BID #15 g 01/03/21 10/21/21 Rx sumatriptan succinate 50 mg tablet 50 mg PO DAILY PRN #10 tab 01/10/21 10/21/21 Rx clotrimazole 10 mg itzel 10 mg MUCOUS MEMBRANE TID PRN 02/19/21 10/21/21 History belimumab 200 mg/mL subcutaneous 200 mg SUBCUT WK 03/05/21 10/21/21 History auto-injector (Benlysta) metoprolol succinate 100 mg 100 mg PO HS 04/16/21 10/21/21 History tablet,extended release 24 hr (Toprol XL) hydroxychloroquine 200 mg tablet 200 mg PO BID 05/22/21 10/21/21 History (Plaquenil) fluconazole 200 mg tablet See Rx Instructions PO .COMPLEX 07/04/21 10/21/21 History warfarin 5 mg tablet See Rx Instructions PO UD #90 tab 07/29/21 10/21/21 Rx fremanezumab-vfrm 225 mg/1.5 mL 225 mg SUBCUT MONTHLY #1.5 ml 08/06/21 10/21/21 Rx subcutaneous auto-injector (Ajovy) cholecalciferol (vitamin D3) 1,250 50,000 unit PO .COMPLEX #14 cap 09/02/21 10/21/21 Rx mcg (50,000 unit) capsule (D3-50 Cholecalciferol) levothyroxine 150 mcg tablet 150 mcg PO QAM #30 tab 09/02/21 10/21/21 Rx (Levoxyl) losartan 25 mg tablet 25 mg PO DAILY #30 tab 09/26/21 10/21/21 Rx potassium chloride 20 mEq 20 meq PO DAILY #30 tab 09/26/21 10/21/21 Rx tablet,extended release nortriptyline 25 mg capsule 25 mg PO DAILY cap 09/30/21 10/21/21 History prednisone 1 mg tablet 8 mg PO DAILY tab 09/30/21 10/21/21 History spironolactone 100 mg tablet See Rx Instructions PO DAILY@1200 09/30/21 10/21/21 History tab ciprofloxacin HCl 500 mg tablet 500 mg PO BID 5 Days #10 tab 10/19/21 10/21/21 Rx (Cipro) sucralfate 1 gram tablet (Carafate) 1 g PO AC 28 Days #84 tab 10/19/21 10/21/21 Rx Past Med/Surg History Medical History Abnormal menses Acute pancreatitis (12/16/12) Anemia Ankylosing spondylitis Class 2 obesity in adult Daytime sleepiness Depressive disorder, not elsewhere classified (12/16/12) Encounter for visit Encounter for routine gynecological examination with Papanicolaou smear of cervix Fatigue Gastro-esophageal reflux disease with esophagitis (12/16/12) Gastroparesis Jess's disease High risk medication use History of lupus anticoagulant disorder History of pulmonary embolus (PE) History of vasculitis Hypokalemia Hypothyroidism Irritable bowel syndrome (12/16/12) Labor established (08/02/13) Laryngopharyngeal reflux Lupus Malabsorption Obesity Obesity (BMI 30-39.9) FELECIA (obstructive sleep apnea) Other pulmonary embolism and infarction (12/16/12) Palpitations PCOS (polycystic ovarian syndrome) Pleurisy Polycystic ovaries (12/16/12) Recurrent pulmonary embolism Salt craving Sensorineural hearing loss (SNHL) of right ear with unrestricted hearing of left ear Shortness of breath Snoring Tachycardia Vitamin D deficiency Vulvovaginitis Surgical History History of arthroscopy History of knee surgery Meniscus repair left - 2016,2018 Meniscus repair right - 2011 History of surgery on wrist History of tooth extraction History of wisdom tooth extraction Hx of cholecystectomy Family History Grandmother (Maternal) Breast cancer Mother Hypertension Asthma Grandmother Hypertension Cancer Father Hearing loss Other Allergies Coronary heart disease Diabetes Dyslipidemia Emphysema, unspecified Heart disease No family history of adverse response to anesthesia No family history of bleeding disorder No pertinent family history in first degree relatives Denies family history of Lung disease Social History Smoking Status: Never smoker Second Hand Exposure: No; Hx Alcohol Use: No Hx Substance Use: No Preferred Language: Thai Communication Ability: Effective Java Jsf Developer Required: No Beliefs That Will Affect Care: None marital status: Current Living Situation: Family current occupational status: employed 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 denies fevers, chills HEENT: +mild congestion, +mild sore throat. CV: +heart racing. denies chest pain, palpitations Resp: denies shortness of breath, cough GI: +loose stools (chronic since cholecystectomy). denies vomiting, constipation : +mild urinary retention today. denies pain with urination, hematuria Musculoskeletal: +fractured ankle a few months ago (in boot right leg) Skin: denies new rash Neuro: denies new numbness, tingling, weakness Physical Exam Physical Exam: Constitutional: in no acute distress, pleasant and normal affect. Vitals as below. HEENT: No scleral injection or discharge.Moist mucous membranes.Clear oropharynx.No exudate. Neck: Supple without lymphadenopathy or thyromegaly. Trachea midline. Lungs: Clear to auscultation bilaterally Cardiac: Tachycardic. Regular rhythm. No murmurs. No extremity edema. Abdomen: Bowel sounds present. Soft and nondistended.Mildly TTP middle and right upper abdomen. No guarding. No hepatosplenomegaly. MSK: Walking boot on right ankle. Extremities motor strength 5/5. Mild CVA tenderness bilaterally. No spinal tenderness. Skin: No rashes, warm, dry. Neurologic: 2+ patellar tendon reflexes bilaterally. Results & Data Results & Data ([facility]) Vital Signs (Past 12 Hours) Vital Signs Temp Pulse Pulse Resp BP BP Pulse Ox 10/18/21 17:00 100 H 18 111/74 99 10/18/21 15:41 18 120/67 100 10/18/21 14:38 36.4 C L 118 H 20 136/91 98 Laboratory Results Laboratory Results WBC 20.48 K/uL (4.8-10.8) H 10/18/21 15:20 RBC 5.16 M/uL (4.2-5.4) 10/18/21 15:20 Hgb 14.7 g/dL (12.0-16.0) 10/18/21 15:20 Hct 43.5 % (37-47) 10/18/21 15:20 MCV 84.3 fL (80-100) 10/18/21 15:20 MCH 28.5 pg (25-34) 10/18/21 15:20 MCHC 33.8 g/dL (32-36) 10/18/21 15:20 RDW Std Deviation 44.3 fL (36.4-46.3) 10/18/21 15:20 RDW Coeff of Axel 14.3 % (11.5-14.5) 10/18/21 15:20 Plt Count 346 K/uL (130-400) 10/18/21 15:20 MPV 9.5 fL (7.4-10.4) 10/18/21 15:20 Immature Gran % (Auto) 0.8 % 10/18/21 15:20 Neut % (Auto) 79.4 % 10/18/21 15:20 Lymph % (Auto) 13.0 % 10/18/21 15:20 Alfalfa % (Auto) 6.4 % 10/18/21 15:20 Eos % (Auto) 0.3 % 10/18/21 15:20 Baso % (Auto) 0.1 % 10/18/21 15:20 Neut # (Auto) 16.25 K/uL (1.4-6.5) H 10/18/21 15:20 Lymph # (Auto) 2.67 K/uL (1.2-3.4) 10/18/21 15:20 Alfalfa # (Auto) 1.31 K/uL (0.11-0.59) H 10/18/21 15:20 Eos # (Auto) 0.07 K/uL (0-0.5) 10/18/21 15:20 Baso # (Auto) 0.02 K/uL (0-0.2) 10/18/21 15:20 Immature Gran # (Auto) 0.16 K/uL (0.00-0.02) H 10/18/21 15:20 PT 23.8 Seconds (9.0-12.0) H 10/18/21 15:20 INR 2.5 (0.9-1.1) H 10/18/21 15:20 Sodium 138 mmol/L (136-145) 10/18/21 15:20 Potassium 3.8 mmol/L (3.5-5.1) 10/18/21 15:20 Chloride 104 mmol/L (98-107) 10/18/21 15:20 Carbon Dioxide 25 mmol/L (21-32) 10/18/21 15:20 Anion Gap 9 (3-11) 10/18/21 15:20 BUN 9 mg/dl (6-23) 10/18/21 15:20 Creatinine 0.96 mg/dl (0.6-1.2) 10/18/21 15:20 Est Cr Clr Drug Dosing 94.7 ml/min 10/18/21 15:20 Est GFR ( Amer) 90.7 ml/min 10/18/21 15:20 Est GFR (Non-Af Amer) 78.3 ml/min 10/18/21 15:20 BUN/Creatinine Ratio 9.4 (10-20) L 10/18/21 15:20 Glucose 76 mg/dl (70-99(Fasting)) 10/18/21 15:20 Lactate 1.5 mmol/L (0.4-2.0) 10/18/21 16:58 Calcium 9.2 mg/dl (8.5-10.1) 10/18/21 15:20 Total Bilirubin 1.3 mg/dl (0.2-1.0) H 10/18/21 15:20 AST 22 U/L (13-39) 10/18/21 15:20 ALT 27 U/L (7-52) 10/18/21 15:20 Alkaline Phosphatase 91 U/L (34-104) 10/18/21 15:20 Total Protein 7.1 gm/dl (6.0-8.3) 10/18/21 15:20 Albumin 4.2 gm/dl (3.4-5.0) 10/18/21 15:20 Globulin 2.9 gm/dl (2.5-4.0) 10/18/21 15:20 Albumin/Globulin Ratio 1.4 (0.9-2) 10/18/21 15:20 Lipase 59 U/L (11-82) 10/18/21 15:20 Urine Color Dark Yellow 10/18/21 15:05 Urine Appearance Cloudy (Clear) A 10/18/21 15:05 Urine pH 5.5 (4.5-7.5) 10/18/21 15:05 Ur Specific [place] 1.027 (1.000-1.030) 10/18/21 15:05 Urine Protein 1+ (Negative) H 10/18/21 15:05 Urine Glucose (UA) Negative (Negative) 10/18/21 15:05 Urine Ketones Trace (Negative) H 10/18/21 15:05 Urine Blood Negative (Negative) 10/18/21 15:05 Urine Nitrite Negative (Negative) 10/18/21 15:05 Urine Bilirubin 1+ (Negative) H 10/18/21 15:05 Urine Urobilinogen Negative (Negative) 10/18/21 15:05 Ur Leukocyte Esterase Trace (Negative) H 10/18/21 15:05 Urine WBC (Auto) >30 /hpf (0-5) H 10/18/21 15:05 Urine RBC (Auto) 5-10 /hpf (0-4) H 10/18/21 15:05 U Hyaline Cast (Auto) 0 /lpf (0-5) 10/18/21 15:05 U Epithel Cells (Auto) >30 /lpf (0-5) H 10/18/21 15:05 Urine Bacteria (Auto) 1+ (Negative) H 10/18/21 15:05 POC Ur Test NEG (NEG) 10/18/21 15:05 Impressions Abdomen/Pelvis CT 10/18/21 15:34 CT abd pelvis IV con only CLINICAL HISTORY: upper abd pain WBC 20 TECHNIQUE: Helical axial images of the abdomen and pelvis were obtained and displayed. Automated dose lowering techniques and/or adjustment according to patient size were utilized for this exam. This exam was performed with intravenous contrast. COMPARISON: None available at the time of this dictation. FINDINGS: Lower chest: No acute abnormality Liver: Unremarkable. No focal lesions are seen. Gallbladder and biliary tree: Patient is status post cholecystectomy. No intra- or extrahepatic biliary ductal dilation. Pancreas: Unremarkable, no focal lesions. Spleen: Unremarkable. Adrenals: Unremarkable. Kidneys and ureters: Unremarkable. Bladder: Unremarkable. Reproductive organs: Unremarkable. Bowel: Unremarkable appearance of the bowel. The appendix is normal. Lymph nodes Retroperitoneal: Unremarkable. Mesenteric: Unremarkable. Pelvic: Unremarkable. Peritoneum: Normal. Vessels: Unremarkable. Abdominal wall: Unremarkable. Bones: Unremarkable. IMPRESSION: No acute abnormalities. ACT 112: Negative or not required by law. Electronically signed by: Bautista Silverman M.D. 10/18/2021 4:56 PM Chest X-Ray 10/18/21 15:39 XR chest 1V portable CLINICAL HISTORY: WBC 20 eval for pna COMPARISON STUDY: Chest radiograph and chest CT October 05, 2021. FINDINGS: Lung volumes are normal. Lungs are clear. There is no pneumothorax or pleural effusion. Cardiac size is normal. Mediastinal contours are normal. There is no evidence for pulmonary edema. IMPRESSION: No acute cardiopulmonary findings. ACT 112: Negative or not required by law. Electronically signed by: Nilesh Kirkpatrick M.D. 10/18/2021 4:08 PM Supervising Physician Co-Signing Physician Notes Patient seen and examined at bedside. Obtained a history and physical examination during face to face encounter. Discussed plan of care with Dr. Fernández and patient. Reviewed above note and agree with it. Patient admitted with urosepsis. 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
[2021-10-18] MEDS ORDERED: NITROGLYCERIN SL 0.4 MG/TAB TAB SL PRN (22:10)
[2021-10-18] MEDS ORDERED: SUMAtriptan succinate 50 MG TAB PO PRN (22:10)
[2021-10-18] MEDS ORDERED: MoRPHine SULFATE 2 MG/ML CARP IV PRN (22:10)
[2021-10-18] MEDS ORDERED: WARFARIN SOD 5 MG TAB PO SCH (22:10)
[2021-10-18] MEDS ORDERED: FAMOTIDINE 40 MG TABLET PO SCH (22:10)
[2021-10-18] MEDS ORDERED: ALUMINUM/MAGNESIUM SUSP 30 ML UDC PO PRN (22:10)
[2021-10-18] MEDS ORDERED: MAGNESIUM HYDROXIDE SUSP 30 ML UDC PO PRN (22:10)
[2021-10-18] MEDS ORDERED: POLYETHYLENE (MIRALAX) 17 GM PACK PO PRN (22:10)
[2021-10-18] MEDS ORDERED: ALBUTEROL HFA 8 GM INHALER INH PRN (22:39)
[2021-10-18] MEDS: ACETAMINOPHEN 325 MG TAB PO PRN (22:59)
[2021-10-18] MEDS: ONDANSETRON INJ 2 MG/ML 2 ML VIAL IV PRN (23:00)
[2021-10-18] MEDS: METOPROLOL SUCC 50MG EXT REL TAB PO SCH (23:31)
[2021-10-18] MEDS: PANTOprazole 40 MG TAB PO SCH (23:31)
[2021-10-18] MEDS: GABAPENTIN 600 MG TAB PO SCH (23:31)
[2021-10-19] MEDS: HYDROXYCHLOROQUINE SULFATE 200 MG TAB PO SCH ×2 (00:34→09:34)
[2021-10-19] MEDS ORDERED: LEVOTHYROXINE SODIUM 150 MCG TABLET PO SCH (06:30)
[2021-10-19 07:32] LABS: Basophils # (auto) 0.01 K/uL (0-0.2); Basophils % (auto) 0.1 %; Eosinophils % (auto) 2.7 %; Hematocrit (blood only) 36.2 % (37-47); Hemoglobin 11.9 g/dL (12.0-16.0); Immature Granulocytes # (auto) 0.06 K/uL (0.00-0.02); Immature Granulocytes % (auto) 0.8 %; Lymphocytes # (auto) 1.81 K/uL (1.2-3.4); Lymphocytes % (auto) 24.6 %; Mean Corpuscular Hemoglobin 28.1 pg (25-34); Mean Corpuscular Hgb Conc 32.9 g/dL (32-36); Mean Corpuscular Volume 85.4 fL (80-100); Mean Platelet Volume 9.6 fL (7.4-10.4); Monocytes # (auto) 0.73 K/uL (0.11-0.59); Monocytes % (auto) 9.9 %; Neutrophils # (auto) 4.54 K/uL (1.4-6.5); Neutrophils % (auto) 61.9 %; Platelet Count 284 K/uL (130-400); RDW Coefficient of Variation 14.8 % (11.5-14.5); RDW Standard Deviation 46.2 fL (36.4-46.3); Red Blood Count 4.24 M/uL (4.2-5.4); White Blood Count 7.35 K/uL (4.8-10.8)
[2021-10-19 08:26] LABS: Albumin Globulin Ratio 1.5 (0.9-2); Albumin Level 3.4 gm/dl (3.4-5.0); BUN Creatinine Ratio 10.6 (10-20); Bilirubin,Total 1.6 mg/dl (0.2-1.0); Calcium 8.4 mg/dl (8.5-10.1); Creatinine Clr Calc Pharmacy 96.9 ml/min; Est GFR (Non-African American) 80.3 ml/min; Globulin 2.2 gm/dl (2.5-4.0); Potassium 3.9 mmol/L (3.5-5.1); Total Protein 5.6 gm/dl (6.0-8.3)
[2021-10-19] MEDS: ONDANSETRON INJ 2 MG/ML 2 ML VIAL IV PRN (08:27)
[2021-10-19] MEDS ORDERED: predniSONE 1 MG TAB PO SCH (09:00)
[2021-10-19] MEDS ORDERED: NORTRIPTYLINE HCL 25 MG CAP PO SCH ×2 (09:00→21:00)
[2021-10-19] MEDS ORDERED: POTASSIUM CHLORIDE CRTAB 20 MEQ TABCR PO SCH (09:00)
[2021-10-19] MEDS ORDERED: ALUMINUM/MAGNESIUM SUSP 18 ML, LIDOCAINE VISCOUS 2% SOLN 6 ML, BARCODE IDENTIFIER 1 EA PO ONE (09:30)
[2021-10-19] MEDS: METOPROLOL SUCC 50MG EXT REL TAB PO SCH (09:34)
[2021-10-19] MEDS: GABAPENTIN 600 MG TAB PO SCH (09:34)
[2021-10-19] MEDS: PANTOprazole 40 MG TAB PO SCH (09:34)
[2021-10-19] MEDS: ACETAMINOPHEN 325 MG TAB PO PRN (09:38)
[2021-10-19] MEDS ORDERED: Nursing to Pharmacy Communication SCH (10:00)
--- NOTE | 2021-10-19 11:34 | Electrocardiogram Report ---
Test Reason : Blood Pressure : / mmHG Vent. Rate : 102 BPM Atrial Rate : 102 BPM P-R Int : 176 ms QRS Dur : 070 ms QT Int : 252 ms P-R-T Axes : 098 015 044 degrees QTc Int : 328 ms Sinus tachycardia Nonspecific T wave abnormality Abnormal ECG When compared with ECG of 05-OCT-2021 18:40, Nonspecific T wave abnormality, worse in Anterior leads Confirmed by Duane Childs ([id number]) on 10/19/2021 11:34:32 AM Referred By: REFERRED SELF Confirmed By:Duane Childs
[2021-10-19] MEDS ORDERED: SPIRONOLACTONE 25 MG TAB PO SCH (12:00)
--- NOTE | 2021-10-19 12:08 | Discharge Summary ---
Date of Service October 19, 2021 Admission HPI Per Admitting Provider 31 yo female with a PMHx of lupus anticoagulant on coumadin and prednisone, GERD, recent COVID (tested negative today), pulmonary embolism, and chronic migraines presented to the ER with abdominal pain. Pain started around 8 am this morning in her middle upper abdomen. Sharp, burning pain, constant. Worsened throughout the day. Some radiation to mid back, however, has chronic back pains from lupus. She tried taking tylenol which did not seem to help. Denies vomiting, melena, hematochezia. She has had pancreatitis in the past which was idiopathic and had a cholecystectomy. She had an endoscopy this past June which showed some inflammation and lesions possibly from chronic steroid use but no further treatment was necessary. She did test positive for COVID 2 weeks ago, is COVID vaccinated without booster (2nd vaccination was on Oct 02) and did receive monoclonal antibodies. She also does state that since she had a PE 2 years ago, she has been chronically tachycardic due to her lupus and has been taking metoprolol for better control. Principal Diagnosis Urinary tract infection Epigastric pain, suspect GI related, gastritis likely Discharge Exam GENERAL: 31 yo obese young WF. NAD. LUNGS: Clear to auscultation bilaterally. No accessory muscle use. No W/R/R. CARDIOVASCULAR: Regular rate and rhythm. No M/G/R. No JVD. ABDOMEN: Soft, obese, non-tender and non-distended. BS normal x 4 quad. Neg CVA tenderness. EXTREMITIES: No edema. Non-tender. Peripheral pulses +2/4. NEUROLOGIC: A&O x3. PSYCHIATRIC: Cooperative. Appropriate mood and affect. SKIN: Warm, dry, intact. No rashes or lesions. Discharge Data Allergies Allergy/AdvReac Type Severity Reaction Status Date / Time egg Allergy Severe Anaphylaxis Verified 10/05/21 19:11 Penicillins Allergy Intermediate Rash Verified 10/05/21 19:11 Sulfa (Sulfonamide Allergy Mild Rash Verified 10/05/21 19:11 Antibiotics) metformin AdvReac Intermediate Diarrhea Verified 10/05/21 19:11 metoclopramide AdvReac Mild SHAKY Verified 10/05/21 19:11 Consultations 10/18/21 17:55 ED Decision to Admit Stat Procedures Performed none Ordered Studies Abdomen/Pelvis CT 10/18/21 15:34 CT abd pelvis IV con only CLINICAL HISTORY: upper abd pain WBC 20 TECHNIQUE: Helical axial images of the abdomen and pelvis were obtained and displayed. Automated dose lowering techniques and/or adjustment according to patient size were utilized for this exam. This exam was performed with intravenous contrast. COMPARISON: None available at the time of this dictation. FINDINGS: Lower chest: No acute abnormality Liver: Unremarkable. No focal lesions are seen. Gallbladder and biliary tree: Patient is status post cholecystectomy. No intra- or extrahepatic biliary ductal dilation. Pancreas: Unremarkable, no focal lesions. Spleen: Unremarkable. Adrenals: Unremarkable. Kidneys and ureters: Unremarkable. Bladder: Unremarkable. Reproductive organs: Unremarkable. Bowel: Unremarkable appearance of the bowel. The appendix is normal. Lymph nodes Retroperitoneal: Unremarkable. Mesenteric: Unremarkable. Pelvic: Unremarkable. Peritoneum: Normal. Vessels: Unremarkable. Abdominal wall: Unremarkable. Bones: Unremarkable. IMPRESSION: No acute abnormalities. ACT 112: Negative or not required by law. Electronically signed by: Bautista Silverman M.D. 10/18/2021 4:56 PM Chest X-Ray 10/18/21 15:39 XR chest 1V portable CLINICAL HISTORY: WBC 20 eval for pna COMPARISON STUDY: Chest radiograph and chest CT October 05, 2021. FINDINGS: Lung volumes are normal. Lungs are clear. There is no pneumothorax or pleural effusion. Cardiac size is normal. Mediastinal contours are normal. There is no evidence for pulmonary edema. IMPRESSION: No acute cardiopulmonary findings. ACT 112: Negative or not required by law. Electronically signed by: Nilesh Kirkpatrick M.D. 10/18/2021 4:08 PM Hospital Course (1) Urinary tract infection: Patient was admitted with questionable sepsis syndrome with leukocytosis, tachycardia, and grossly infected urine. She has a history of tachycardia, her leukocytosis I suspect was reactive, and her lactate was only 1.5. Patient subsequently did not meet sepsis criteria. She has been empirically started on Rocephin for her urinary tract infection, her culture data is pending at this time. She does not have CVA tenderness, her CT abdomen and pelvis is unremarkable, subsequently no evidence of pyelonephritis Her leukocytosis has normalized today Her renal function is within normal limits At this time, patient can be discharged home on course of oral antibiotics. She is chronically immunocompromised, subsequently a broad-spectrum antibiotic is preferred. Unfortunately she is penicillin and sulfa allergic. Will d/c home with 5 more days Cipro. She has been instructed that Cipro can increase her INR level, she has an appointment for an INR check on 10/21/2021. Adjustment in her Coumadin can be determined at that time if needed. I did inform her that in the event that her urine culture grows something that is resistant to Cipro, someone will be in touch regarding adjusting antibiotics. (2) Leukocytosis: As noted above, resolved (3) Anticoagulated on Coumadin: Continue Coumadin as currently dosed, INR check on Thursday as noted above (4) HTN (hypertension): Unclear as to why, however, her spironolactone and metoprolol were ordered differently than she takes at home during this admission Would advise resumption of her previous antihypertensive regimen (5) Morbid obesity with BMI of 40.0-44.9, adult: Weight loss strongly advised (6) GERD (gastroesophageal reflux disease): Suspect that this is the cause of her epigastric pain Notes that she had an EGD in June that demonstrated findings of gastritis Continue H2 ernie and PPI therapy. Will add Carafate with meals. (7) Lupus anticoagulant positive: On Coumadin as noted above. On chronic immunosuppressive therapy with hydroxychloroquine as well as prednisone (8) Hypothyroidism: Continue Synthroid (9) Depressive disorder, not elsewhere classified: Continue Pamelor At this time patient is hemodynamically and medically stable for discharge home. Plans as noted above. Prescriptions have been sent to her preferred pharmacy. Advised follow-up with her primary care physician within 1 week. Keep appointment for INR check on Thursday as noted. Above plan of care has been discussed with Dr. Montes who is also seen and evaluated this patient prior to discharge. Total Time Total Time Spent Total Time Spent (In Minutes): >30 minutes Discharge Plan Discharge Items Patient Disposition: Home - Self-Care Reason For Visit: ABDOMINAL PAIN Discharge Diagnosis: Urinary tract infection Activity: Resume your previous activity Non-emergency contact: Primary Care Provider Call non-emergency contact if: you have any medication questions and your symptoms worsen Follow-up/Referrals: Chio Curran DO [Primary Care Provider] - Diet: Regular Addtl Attending Provider Instructions: You were hospitalized due to a urinary tract infection for which you have been treated with antibiotics At this time, your urine culture is still pending, as a result will send you home with a broad-spectrum antibiotic called Cipro Please be sure to complete this course of antibiotics. Someone will be in touch with you if the antibiotic needs to be changed. Keep in mind that this antibiotic can cause your INR level to rise a bit. Please keep your scheduled INR check on Thursday as planned. Remember to avoid green leafy vegetables as this can cause reverse effects of your Coumadin. You are also being sent home with a medication called Carafate which can be taken before meals 3 times a day. You can take this medication (Carafate) in conjunction with the Pepcid and omeprazole that you are prescribed for acid reflux. We recommend follow-up with your primary care doctor within 1 week or sooner if needed. Pending Studies at Discharge: Yes Studies:: Urine culture Blood cultures Stand-Alone Forms: My [facility] [employer] [place], Smoking Cessation Medications and DC Order Prescriptions: New ciprofloxacin HCl [Cipro] 500 mg tablet 500 mg PO BID 5 Days Qty: 10 RF: 0 sucralfate [Carafate] 1 gram tablet 1 g PO AC 28 Days Qty: 84 RF: 0 Continued clotrimazole 10 mg itzel 10 mg mucous membrane TID PRN (Reason: .) RF: 0 hydroxychloroquine [Plaquenil] 200 mg tablet 200 mg PO BID RF: 0 fluconazole 200 mg tablet See Rx Instructions PO .COMPLEX RF: 0 warfarin 5 mg tablet See Rx Instructions PO UD Qty: 90 RF: 0 Benlysta 200 mg/mL auto-injector 200 mg subcut WK RF: 0 prednisone 1 mg tablet 8 mg PO DAILY RF: 0 potassium chloride 20 mEq tablet extended release 20 meq PO DAILY Qty: 30 RF: 6 losartan 25 mg tablet 25 mg PO DAILY Qty: 30 RF: 2 albuterol sulfate 90 mcg/actuation aerosol powdr breath activated 1 inh inhalation QID PRN (Reason: shortness of breath or wheezing) Qty: 1 RF: 0 mupirocin 2 % ointment 1 applic topical BID Qty: 15 RF: 2 cholecalciferol (vitamin D3) [D3-50 Cholecalciferol] 1,250 mcg (50,000 unit) capsule 50,000 unit PO .COMPLEX Qty: 14 RF: 0 levothyroxine [Levoxyl] 150 mcg tablet 150 mcg PO QAM Qty: 30 RF: 3 Ajovy Autoinjector 225 mg/1.5 mL auto-injector 225 mg subcut MONTHLY Qty: 1.5 RF: 11 sumatriptan succinate 50 mg tablet 50 mg PO DAILY PRN (Reason: Migraine Headache) Qty: 10 RF: 2 nortriptyline 25 mg capsule 25 mg PO DAILY RF: 0 spironolactone 100 mg tablet See Rx Instructions PO DAILY@1200 RF: 0 multivitamin Tablet 1 tab PO HS RF: 0 cyclobenzaprine 10 mg tablet 10 mg PO HS PRN (Reason: Muscle Spasm) RF: 0 ketoconazole 2 % shampoo 1 applic topical DIRECTED RF: 0 famotidine 40 mg tablet 40 mg PO HS RF: 0 omeprazole 20 mg Tablet,Delayed Release (Dr/Ec) 20 mg PO BID RF: 0 gabapentin 600 mg tablet 600 mg PO BID RF: 0 promethazine 25 mg tablet 25 mg PO Q6H PRN (Reason: Nausea And Vomiting) RF: 0 ondansetron 4 mg tablet,disintegrating 4 mg PO Q6H PRN (Reason: Nausea And Vomiting) RF: 0 medroxyprogesterone 150 mg/mL suspension 150 mg IM .COMPLEX RF: 0 metoprolol succinate [Toprol XL] 100 mg tablet extended release 24 hr 100 mg PO HS RF: 0 Discharge Orders: Discharge Order (Routine); Ordered 10/19/21 Ordered By: Gillian Mccarty/Other Patient Handouts: Understanding Urinary Tract ..., Understanding Sepsis Admission Data Admit Date/Time: 10/18/21 20:23 Attending Provider: Rikki Montes Admit Provider: David Fernández Primary Care Provider: Chio Curran Other Providers: Serge Walker Other Interventions: Discharge Summary Assessment (RN) Last Done: 10/19/21 12:58 Supervising Physician Co-Signing Physician Notes Patient seen and examined, chart reviewed, case discussed with Gillian Menchaca PA-C and I agree with the assessment and plan as above except as otherwise noted General: A&Ox3. NAD. Cooperative. HEENT: Atraumatic, normocephalic. Pulm: CTAB A&P. -wheezes, -rales, -rhonchi. Symmetrical chest rise. No increase work of breathing. No respiratory distress. Cardiac: RRR, -mrg. Radial pulses intact and symmetrical. Abdominal: Nontender, nondistended, soft. BS present. All labs and images reviewed Coding Level of Care Code D/C DAY MANAGEMENT >30 MINS Diagnoses Urinary tract infection N39.0 Leukocytosis D72.829 Leukocytosis type: unspecified Anticoagulated on Coumadin Z79.01 HTN (hypertension) I10 Morbid obesity with BMI of 40.0-44.9, adult E66.01; Z68.41 GERD (gastroesophageal reflux disease) K21.9 Lupus anticoagulant positive R76.0 Hypothyroidism E03.8; E06.3 Hypothyroidism type: due to Jess's thyroiditis Depressive disorder, not elsewhere classified F32.9
[2021-10-19] MEDS ORDERED: cefTRIAXone SODIUM 2,000 MG in DEXTROSE 5% 50 ML IV SCH (15:00)
[2021-10-19] MEDS ORDERED: WARFARIN SOD 5 MG TAB PO SCH (16:00)
[2021-10-21] MEDS ORDERED: FLUCONAZOLE 100 MG TAB PO SCH (09:00)
--- NOTE | 2021-10-21 13:48 | Billing Data ---
Date of Service October 18, 2021 Coding Level of Care Code 53163 Initial Inpt Care Lvl 3
[2021-10-22] MEDS ORDERED: WARFARIN SOD 2.5 MG TAB PO SCH (16:00)
== END 2021-10-19 14:19 | disposition home or self-care (01) ==
LOC: ED 14:36 → 3N 20:23 → INTOOBSV 20:23 → SUATTDRO 20:23 → 3N 21:44
DX: E06.3 Autoimmune thyroiditis; R76.0 Raised antibody titer; Z88.2 Allergy status to sulfonamides; N39.0 Urinary tract infection, site not specified; Z91.012 Allergy to eggs; Z79.890 Hormone replacement therapy; Z88.0 Allergy status to penicillin; Z79.899 Other long term (current) drug therapy; Z68.41 Body mass index [BMI] 40.0-44.9, adult; K21.9 Gastro-esophageal reflux disease without esophagitis; Z79.51 Long term (current) use of inhaled steroids; E66.01 Morbid (severe) obesity due to excess calories; Z79.01 Long term (current) use of anticoagulants; F32.9 Major depressive disorder, single episode, unspecified; M32.9 Systemic lupus erythematosus, unspecified; A41.9 Sepsis, unspecified organism; I10 Essential (primary) hypertension; Z20.822 Contact with and (suspected) exposure to COVID-19; E03.8 Other specified hypothyroidism; D72.829 Elevated white blood cell count, unspecified; G43.909 Migraine, unspecified, not intractable, without status migrainosus

== ENCOUNTER 2021-12-09 09:08 | Inpatient (IN) ==
[2021-12-09] MEDS ORDERED: ONDANSETRON INJ 2 MG/ML 2 ML VIAL IV STA ×2 (09:31→11:50)
[2021-12-09] MEDS ORDERED: KETOROLAC 30 MG/ML VIAL IV STA (09:31)
[2021-12-09] MEDS ORDERED: LOPERAMIDE HCL 2 MG CAP PO STA (09:31)
--- NOTE | 2021-12-09 09:37 | Emergency Department Note ---
History of Present Illness General Chief complaint: Diarrhea Stated complaint: DIARRHEA,VOMITING, ABD PAIN Time Seen by Provider: 12/09/21 09:24 History of Present Illness Maximum Pain Intensity: 6 This 31-year-old female patient presents to the emergency department today for evaluation of diarrhea, vomiting, abdominal pain which began about 8 hours prior to arrival. Patient states she awoke at 1 AM with nausea, vomiting, and diarrhea. She reports epigastric abdominal pain. She has not taken any medications for her symptoms. She denies any fever, but is having chills. She reports generalized body aches and headache. No numbness, tingling, weakness. No hematochezia or melena. No hematemesis. She rates her generalized abdominal pain 6/10 and describes it as aching and sharp. Home Medications Medication Instructions Recorded Confirmed Type famotidine 40 mg tablet 40 mg PO HS 03/03/19 12/09/21 History ketoconazole 2 % shampoo 1 applic TOPICAL DIRECTED 03/03/19 12/09/21 History multivitamin 1 tab PO HS 03/03/19 12/09/21 History omeprazole 20 mg tablet,delayed 20 mg PO BID 03/03/19 12/09/21 History release gabapentin 600 mg tablet 600 mg PO BID 08/18/20 12/09/21 History ondansetron 4 mg disintegrating 4 mg PO Q6H PRN 08/18/20 12/09/21 History tablet albuterol sulfate 90 mcg/actuation 1 inh INHALATION QID PRN #1 ea 10/12/20 12/09/21 Rx breath activated powder inhaler sumatriptan succinate 50 mg tablet 50 mg PO DAILY PRN #10 tab 01/10/21 12/09/21 Rx belimumab 200 mg/mL subcutaneous 200 mg SUBCUT WK 03/05/21 12/09/21 History auto-injector (Benlysta) metoprolol succinate 100 mg 50 mg PO BID 04/16/21 12/09/21 History tablet,extended release 24 hr (Toprol XL) hydroxychloroquine 200 mg tablet 200 mg PO BID 05/22/21 12/09/21 History (Plaquenil) fremanezumab-vfrm 225 mg/1.5 mL 225 mg SUBCUT MONTHLY #1.5 ml 08/06/21 12/09/21 Rx subcutaneous auto-injector (Ajovy) levothyroxine 150 mcg tablet 150 mcg PO QAM #30 tab 09/02/21 12/09/21 Rx (Levoxyl) nortriptyline 25 mg capsule 25 mg PO HS cap 09/30/21 12/09/21 History prednisone 1 mg tablet 3 mg PO QAM tab 09/30/21 12/09/21 History warfarin 5 mg tablet See Rx Instructions PO UD #90 tab 10/28/21 12/09/21 Rx fluconazole 200 mg tablet 50 mg PO 3XWK tab 11/29/21 12/09/21 History mycophenolate mofetil 250 mg 250 mg PO QAM cap 11/29/21 12/09/21 History capsule (CellCept) potassium chloride 20 mEq 20 meq PO BID #60 tab 12/02/21 12/09/21 Rx tablet,extended release spironolactone 100 mg tablet 100 mg PO DAILY@1200 #30 tab 12/02/21 12/09/21 Rx buspirone 10 mg tablet 10 mg PO BID 12/09/21 12/09/21 History cholecalciferol (vitamin D3) 1,250 50,000 unit PO WK 12/09/21 12/09/21 History mcg (50,000 unit) capsule (D3-50 Cholecalciferol) fluocinonide 0.05 % topical 1 applic TOPICAL DAILY 12/09/21 12/09/21 History solution lisinopril 5 mg tablet 5 mg PO HS 12/09/21 12/09/21 History mometasone 50 mcg/actuation nasal 1 spray INTRANASAL DAILY 12/09/21 12/09/21 History spray prednisone 5 mg tablet 5 mg PO QAM 12/09/21 12/09/21 History sucralfate 1 gram tablet 1 g PO AC 12/09/21 12/09/21 History valacyclovir 1 gram tablet 2 mg PO BID 12/09/21 12/09/21 History Allergies Allergy/AdvReac Type Severity Reaction Status Date / Time egg Allergy Severe Anaphylaxis Verified 12/09/21 13:27 Penicillins Allergy Intermediate Rash Verified 12/09/21 13:27 Sulfa (Sulfonamide Allergy Mild Rash Verified 12/09/21 13:27 Antibiotics) metformin AdvReac Intermediate Diarrhea Verified 12/09/21 13:27 metoclopramide AdvReac Mild SHAKY Verified 12/09/21 13:27 Past Med/Surg History Medical History Abnormal menses Acute pancreatitis (12/16/12) Anemia Ankylosing spondylitis Class 2 obesity in adult Daytime sleepiness Depressive disorder, not elsewhere classified (12/16/12) Encounter for visit Encounter for routine gynecological examination with Papanicolaou smear of cervix Fatigue Gastro-esophageal reflux disease with esophagitis (12/16/12) Gastroparesis Jess's disease High risk medication use History of lupus anticoagulant disorder History of pulmonary embolus (PE) History of vasculitis Hypokalemia Hypothyroidism Irritable bowel syndrome (12/16/12) Labor established (08/02/13) Laryngopharyngeal reflux Lupus Malabsorption Obesity Obesity (BMI 30-39.9) FELECIA (obstructive sleep apnea) Other pulmonary embolism and infarction (12/16/12) Palpitations PCOS (polycystic ovarian syndrome) Pleurisy Polycystic ovaries (12/16/12) Recurrent pulmonary embolism Salt craving Sensorineural hearing loss (SNHL) of right ear with unrestricted hearing of left ear Shortness of breath Snoring Tachycardia Vitamin D deficiency Vulvovaginitis Surgical History History of arthroscopy History of knee surgery Meniscus repair left - 2016,2019 Meniscus repair right - 2009, 2011 History of surgery on wrist History of tooth extraction History of wisdom tooth extraction Hx of cholecystectomy Family History (Updated 12/09/21 @ 14:44 by Kamari Gardner) Grandmother (Maternal) Breast cancer Mother Hypertension Asthma Gastroparesis Grandmother Hypertension Cancer Father Hearing loss Other Allergies Coronary heart disease Diabetes Dyslipidemia Emphysema, unspecified Heart disease No family history of adverse response to anesthesia No family history of bleeding disorder No pertinent family history in first degree relatives Denies family history of Lupus (systemic lupus erythematosus) Lung disease Social History Smoking Status: Never smoker Second Hand Exposure: No; Do You Dip or Chew Tobacco: No; Tobacco Cessation Education Requested by Patient: No Hx Alcohol Use: No Hx Substance Use: No Preferred Language: Lithuanian Communication Ability: Effective Power And Recovery Shift Engineer Required: No Beliefs That Will Affect Care: None marital status: Current Living Situation: Family Current Living Situation Comment: [place] current occupational status: employed 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 How many Children do You have: 2 Other Information That Helps Us Care for You: No Feels Safe at Home: Yes Safety Concerns: Feels Safe At This Time Assistive Devices: None Review of Systems A total of 10 systems reviewed and were otherwise negative Physical Exam Vital Signs Vital Signs - 24 hr 12/09/21 09:16 12/09/21 11:31 12/09/21 11:45 Temperature 36.4 C L Temperature Source Temporal Artery Scan Pulse Rate 134 H Pulse Rate [Finger] 123 H Pulse Rhythm [Finger] Pulse Strength [Finger] Respiratory Rate 18 18 Respiratory Effort / Characteristics Non-Labored Respiratory Depth Normal Blood Pressure 95/74 L Blood Pressure [Left Arm] 104/53 L Blood Pressure Mean 81 Blood Pressure Mean [Left Arm] 70 Blood Pressure Position Sitting Blood Pressure Position [Left Arm] Lying Pulse Oximetry 100 99 100 Oxygen Delivery Method Room Air Room Air Room Air Sepsis Recent Fever Within 48 Hours No Sepsis New/Unexplained Change in Mental Status No Sepsis Action Taken by Nursing No Action Required 12/09/21 13:35 Temperature Temperature Source Pulse Rate Pulse Rate [Finger] 130 H Pulse Rhythm [Finger] Regular Pulse Strength [Finger] Normal Respiratory Rate 18 Respiratory Effort / Characteristics Non-Labored Respiratory Depth Normal Blood Pressure Blood Pressure [Left Arm] 116/76 Blood Pressure Mean Blood Pressure Mean [Left Arm] 89 Blood Pressure Position Blood Pressure Position [Left Arm] Lying Pulse Oximetry 100 Oxygen Delivery Method Room Air Sepsis Recent Fever Within 48 Hours Sepsis New/Unexplained Change in Mental Status Sepsis Action Taken by Nursing VITALS: Vitals are noted on the nurse's note and reviewed by myself. Vital signs stable. GENERAL: This is a 31-year-old obese white female, in no acute distress, nondiaphoretic, well-developed well-nourished. SKIN: The skin was without rashes, erythema, edema, or bruising. There is no tenting of the skin. Capillary refill less than 2 seconds. HEAD: Normocephalic atraumatic. EYES: Conjunctivae without injection, sclerae without icterus. NECK: Supple without nuchal rigidity. No lymphadenopathy. No JVD. HEART: Regular rate and rhythm without murmurs gallops or rubs. LUNGS: Clear to auscultation bilaterally without wheezes, rales or rhonchi. No retractions or accessory muscle use. ABDOMEN: Positive bowel sounds x 4. Normal tympanic percussion. Soft, nontender, without masses or organomegaly. Dooley sign negative. No guarding or rebound tenderness. MUSCULOSKELETAL: No muscle atrophy, erythema, or edema noted. Full range of motion without joint tenderness in all extremities. No tenderness to palpation. Normal gait. Strength 5/5 throughout. NEURO: Patient was alert and oriented to person place and time. No focal neurological deficits. Course Course The patient was seen and evaluated as above. An order was placed for continuous cardiac monitoring. The monitor shows a sinus tachycardia at a rate of 130 bpm. IV access obtained, labs drawn. Patient medicated with IV fluids, Zofran, Toradol. Labs reviewed by myself. Patient is continuing to complain of nausea. Patient given second liter of IV fluids. She is given repeat dose of Zofran. Imaging performed and reviewed by myself and radiologist as noted. I discussed the findings with the patient at bedside. She was continuing to feel nauseated. She is having difficulty keeping down fluids. She is still tachycardic. She was given Phenergan, Benadryl. I discussed the case with my attending. I discussed case with the toy department manager I [facility] the [facility] Please see his dictation regarding inpatient care. Administered Medications Discontinued Medications Diphenhydramine HCl (Diphenhydramine 50 Mg/Ml Vial) 12.5 mg IV NOW STA Stop: 12/09/21 13:38 Last Admin: 12/09/21 14:04 Dose: 12.5 mg Documented by: [id number] Hydrocortisone Sodium Succinate (Hydrocortisone Sod Succinate 100 Mg/2 Ml Vial) 100 mg IV NOW STA Stop: 12/09/21 13:44 Last Admin: 12/09/21 14:04 Dose: 100 mg Documented by: [id number] Sodium Chloride (Nss 1000ml) 1,000 mls @ 999 mls/hr IV .Q1H1M SYED Stop: 12/09/21 10:45 Last Infusion: 12/09/21 10:58 Dose: 999 mls/hr Documented by: [id number] Admin: 12/09/21 09:57 Dose: 999 mls/hr Documented by: [id number] Sodium Chloride (Nss 1000ml) 1,000 mls @ 999 mls/hr IV .Q1H1M ONE Stop: 12/09/21 11:13 Last Infusion: 12/09/21 12:26 Dose: 999 mls/hr Documented by: [id number] Admin: 12/09/21 11:25 Dose: 999 mls/hr Documented by: [id number] Promethazine HCl (Phenergan) 25 mg in 51 mls @ 204 mls/hr IV NOW STA Stop: 12/09/21 13:51 Last Infusion: 12/09/21 14:19 Dose: 204 mls/hr Documented by: [id number] Admin: 12/09/21 14:04 Dose: 204 mls/hr Documented by: [id number] Famotidine (Pepcid 20mg Iv Push) 20 mg in 5 mls @ 2.5 mls/min IV NOW STA Stop: 12/09/21 14:51 Last Admin: 12/09/21 16:18 Dose: 2.5 mls/min Documented by: [id number] Ioversol (Optiray 320 100ml) 96 ml IV ONCE ONE Stop: 12/09/21 11:40 Last Admin: 12/09/21 11:40 Dose: 96 ml Documented by: [id number] Ketorolac Tromethamine (Ketorolac 30 Mg/Ml Vial) 30 mg IV NOW STA Stop: 12/09/21 09:32 Last Admin: 12/09/21 09:57 Dose: 30 mg Documented by: [id number] Loperamide HCl (Loperamide Hcl 2 Mg Cap) 4 mg PO NOW STA Stop: 12/09/21 09:32 Last Admin: 12/09/21 09:57 Dose: 4 mg Documented by: [id number] Ondansetron HCl (Ondansetron Inj 2 Mg/Ml 2 Ml Vial) 4 mg IV NOW STA Stop: 12/09/21 09:32 Last Admin: 12/09/21 09:57 Dose: 4 mg Documented by: [id number] Ondansetron HCl (Ondansetron Inj 2 Mg/Ml 2 Ml Vial) 4 mg IV NOW STA Stop: 12/09/21 11:51 Last Admin: 12/09/21 12:00 Dose: 4 mg Documented by: [id number] Medical Decision Making Differential Diagnosis Etiologies such as appendicitis, diverticulitis, obstruction, inflammatory lynda wel disease, renal colic, PUD, biliary pathology, pancreatitis, mesenteric ischemia, aortic pathology, infections, genitourinary, UTI, perforated viscus, as well as others were entertained. Medical Records Attestation: I reviewed the patient's medical records. Home Medications Current Medication List: was personally reviewed by me Laboratory Data Leukocytosis of 19,000. No concerning anemia or thrombocytopenia. Renal, hepatic function electrolytes without significant abnormality. Lipase 50. INR 1.9. Magnesium 1.7. Urinalysis appears contaminated specimen. Urine test negative. COVID-19 testing negative. Result diagrams: 12/09/21 09:51 12/09/21 09:51 Lab Results 12/09/21 12/09/21 12/09/21 Range/Units 09:51 09:51 09:51 WBC 19.00 H (4.8-10.8) K/uL RBC 5.59 H (4.2-5.4) M/uL Hgb 16.1 H (12.0-16.0) g/dL Hct 47.0 (37-47) % MCV 84.1 (80-100) fL MCH 28.8 (25-34) pg MCHC 34.3 (32-36) g/dL RDW Std Deviation 45.5 (36.4-46.3) fL RDW Coeff of Axel 14.9 H (11.5-14.5) % Plt Count 308 (130-400) K/uL MPV 9.2 (7.4-10.4) fL Immature Gran % (Auto) 1.1 % Neut % (Auto) 88.6 % Lymph % (Auto) 4.4 % Early % (Auto) 5.7 % Eos % (Auto) 0.1 % Baso % (Auto) 0.1 % Neut # (Auto) 16.85 H (1.4-6.5) K/uL Lymph # (Auto) 0.83 L (1.2-3.4) K/uL Early # (Auto) 1.09 H (0.11-0.59) K/uL Eos # (Auto) 0.01 (0-0.5) K/uL Baso # (Auto) 0.02 (0-0.2) K/uL Immature Gran # (Auto) 0.20 H (0.00-0.02) K/uL PT 19.9 H (9.0-12.0) Seconds INR 1.9 H (0.9-1.1) Sodium 137 (136-145) mmol/L Potassium 3.9 (3.5-5.1) mmol/L Chloride 103 (98-107) mmol/L Carbon Dioxide 21 (21-32) mmol/L Anion Gap 13 H (3-11) BUN 20 (6-23) mg/dl Creatinine 1.05 (0.6-1.2) mg/dl Est Cr Clr Drug Dosing Not Reportable Est GFR ( Amer) 81.4 ml/min Est GFR (Non-Af Amer) 70.2 ml/min BUN/Creatinine Ratio 19.0 (10-20) Glucose 137 H (70-99(Fasting)) mg/dl Calcium 9.2 (8.5-10.1) mg/dl Magnesium (1.7-2.4) mg/dl Total Bilirubin 1.7 H (0.2-1.0) mg/dl AST 18 (13-39) U/L ALT 38 (7-52) U/L Alkaline Phosphatase 101 (34-104) U/L Total Protein 7.6 (6.0-8.3) gm/dl Albumin 4.4 (3.4-5.0) gm/dl Globulin 3.2 (2.5-4.0) gm/dl Albumin/Globulin Ratio 1.4 (0.9-2) Lipase 50 (11-82) U/L Urine Color Urine Appearance (Clear) Urine pH (4.5-7.5) Ur Specific [place] (1.000-1.030) Urine Protein (Negative) Urine Glucose (UA) (Negative) Urine Ketones (Negative) Urine Blood (Negative) Urine Nitrite (Negative) Urine Bilirubin (Negative) Urine Urobilinogen (Negative) Ur Leukocyte Esterase (Negative) Urine WBC (Auto) (0-5) /hpf Urine RBC (Auto) (0-4) /hpf U Hyaline Cast (Auto) (0-5) /lpf U Epithel Cells (Auto) (0-5) /lpf Urine Bacteria (Auto) (Negative) POC Ur Test (NEG) SARS-CoV-2, RNA, NAAT (NEGATIVE) 12/09/21 12/09/21 12/09/21 Range/Units 09:51 11:25 11:30 WBC (4.8-10.8) K/uL RBC (4.2-5.4) M/uL Hgb (12.0-16.0) g/dL Hct (37-47) % MCV (80-100) fL MCH (25-34) pg MCHC (32-36) g/dL RDW Std Deviation (36.4-46.3) fL RDW Coeff of Axel (11.5-14.5) % Plt Count (130-400) K/uL MPV (7.4-10.4) fL Immature Gran % (Auto) % Neut % (Auto) % Lymph % (Auto) % Early % (Auto) % Eos % (Auto) % Baso % (Auto) % Neut # (Auto) (1.4-6.5) K/uL Lymph # (Auto) (1.2-3.4) K/uL Early # (Auto) (0.11-0.59) K/uL Eos # (Auto) (0-0.5) K/uL Baso # (Auto) (0-0.2) K/uL Immature Gran # (Auto) (0.00-0.02) K/uL PT (9.0-12.0) Seconds INR (0.9-1.1) Sodium (136-145) mmol/L Potassium (3.5-5.1) mmol/L Chloride (98-107) mmol/L Carbon Dioxide (21-32) mmol/L Anion Gap (3-11) BUN (6-23) mg/dl Creatinine (0.6-1.2) mg/dl Est Cr Clr Drug Dosing Est GFR ( Amer) ml/min Est GFR (Non-Af Amer) ml/min BUN/Creatinine Ratio (10-20) Glucose (70-99(Fasting)) mg/dl Calcium (8.5-10.1) mg/dl Magnesium 1.7 (1.7-2.4) mg/dl Total Bilirubin (0.2-1.0) mg/dl AST (13-39) U/L ALT (7-52) U/L Alkaline Phosphatase (34-104) U/L Total Protein (6.0-8.3) gm/dl Albumin (3.4-5.0) gm/dl Globulin (2.5-4.0) gm/dl Albumin/Globulin Ratio (0.9-2) Lipase (11-82) U/L Urine Color Dark Yellow Urine Appearance Clear (Clear) Urine pH 5.0 (4.5-7.5) Ur Specific [place] 1.032 H (1.000-1.030) Urine Protein 1+ H (Negative) Urine Glucose (UA) Negative (Negative) Urine Ketones Trace H (Negative) Urine Blood Negative (Negative) Urine Nitrite Negative (Negative) Urine Bilirubin Negative (Negative) Urine Urobilinogen Negative (Negative) Ur Leukocyte Esterase Negative (Negative) Urine WBC (Auto) 1-5 (0-5) /hpf Urine RBC (Auto) 0-4 (0-4) /hpf U Hyaline Cast (Auto) 5-10 H (0-5) /lpf U Epithel Cells (Auto) >30 H (0-5) /lpf Urine Bacteria (Auto) Negative (Negative) POC Ur Test NEG (NEG) SARS-CoV-2, RNA, NAAT (NEGATIVE) 12/09/21 Range/Units 13:50 WBC (4.8-10.8) K/uL RBC (4.2-5.4) M/uL Hgb (12.0-16.0) g/dL Hct (37-47) % MCV (80-100) fL MCH (25-34) pg MCHC (32-36) g/dL RDW Std Deviation (36.4-46.3) fL RDW Coeff of Axel (11.5-14.5) % Plt Count (130-400) K/uL MPV (7.4-10.4) fL Immature Gran % (Auto) % Neut % (Auto) % Lymph % (Auto) % Early % (Auto) % Eos % (Auto) % Baso % (Auto) % Neut # (Auto) (1.4-6.5) K/uL Lymph # (Auto) (1.2-3.4) K/uL Early # (Auto) (0.11-0.59) K/uL Eos # (Auto) (0-0.5) K/uL Baso # (Auto) (0-0.2) K/uL Immature Gran # (Auto) (0.00-0.02) K/uL PT (9.0-12.0) Seconds INR (0.9-1.1) Sodium (136-145) mmol/L Potassium (3.5-5.1) mmol/L Chloride (98-107) mmol/L Carbon Dioxide (21-32) mmol/L Anion Gap (3-11) BUN (6-23) mg/dl Creatinine (0.6-1.2) mg/dl Est Cr Clr Drug Dosing Est GFR ( Amer) ml/min Est GFR (Non-Af Amer) ml/min BUN/Creatinine Ratio (10-20) Glucose (70-99(Fasting)) mg/dl Calcium (8.5-10.1) mg/dl Magnesium (1.7-2.4) mg/dl Total Bilirubin (0.2-1.0) mg/dl AST (13-39) U/L ALT (7-52) U/L Alkaline Phosphatase (34-104) U/L Total Protein (6.0-8.3) gm/dl Albumin (3.4-5.0) gm/dl Globulin (2.5-4.0) gm/dl Albumin/Globulin Ratio (0.9-2) Lipase (11-82) U/L Urine Color Urine Appearance (Clear) Urine pH (4.5-7.5) Ur Specific [place] (1.000-1.030) Urine Protein (Negative) Urine Glucose (UA) (Negative) Urine Ketones (Negative) Urine Blood (Negative) Urine Nitrite (Negative) Urine Bilirubin (Negative) Urine Urobilinogen (Negative) Ur Leukocyte Esterase (Negative) Urine WBC (Auto) (0-5) /hpf Urine RBC (Auto) (0-4) /hpf U Hyaline Cast (Auto) (0-5) /lpf U Epithel Cells (Auto) (0-5) /lpf Urine Bacteria (Auto) (Negative) POC Ur Test (NEG) SARS-CoV-2, RNA, NAAT NEGATIVE (NEGATIVE) Imaging Data Radiologist's Impression: Abdomen/Pelvis CT 12/09/21 10:53 CT SCAN OF THE ABDOMEN AND PELVIS WITH IV CONTRAST CLINICAL HISTORY: Nausea and vomiting. Diarrhea. Leukocytosis. Epigastric abdominal pain. COMPARISON STUDY: Abdominal CT dated 10/18/2021. TECHNIQUE: Following the IV administration of 96 cc of Optiray 320, CT scan of the abdomen and pelvis is performed from the lung bases to the proximal femora. Images are reviewed in the axial, sagittal, and coronal planes. IV contrast was administered without complication. A dose lowering technique was utilized adhering to the principles of ALARA. CT DOSE: 1050.29 mGy.cm FINDINGS: Lung bases: The heart is normal in size and without pericardial effusion. The lung bases are clear. There is a small hiatal hernia. Liver: The contrast-enhanced liver is normal in size, contour, and attenuation. There is no intrahepatic biliary ductal dilatation. The hepatic veins and portal veins are patent. Gallbladder: Surgically absent noting clips in the gallbladder fossa. Spleen: Normal in size and attenuation. Pancreas: Unremarkable. Adrenal glands: Unremarkable. Kidneys: The contrast enhanced kidneys are normal in size and without hydronephrosis. The kidneys enhance symmetrically. Abdominal vasculature: The abdominal aorta is normal in course and caliber. Bowel: There is no bowel obstruction. There are fluid-filled loops of small bowel in the pelvis, and fluid is seen throughout the colon. There is no significant bowel wall thickening or surrounding inflammation.. The appendix is well-visualized and normal. Peritoneum: There is no intraperitoneal free air or abdominal ascites. There is a fat-containing umbilical hernia. Lymphadenopathy: None. Pelvic viscera: The bladder is decompressed and not well evaluated. The uterus and adnexa are normal as visualized noting small ovarian follicles. Skeletal structures: No lytic or blastic lesions are seen. IMPRESSION: 1. Findings suggest a nonspecific enterocolitis. Clinical correlation will be required. 2. Status post cholecystectomy. 3. Additional findings as above. ACT 112: Negative or not required by law. Electronically signed by: Humza Cates M.D. 12/09/2021 12:06 PM Blood Pressure Blood Pressure Findings: Normal blood pressure MDM Narrative This 31-year-old female patient presents to the emergency department today for evaluation of epigastric pain nausea, vomiting, diarrhea. The symptoms began earlier today. Patient was found to have a white blood cell count of 19,000. She is complaining of epigastric pain. CT imaging completed due to the pain and white blood cell count. This was consistent with a nonspecific enterocolitis. Labs otherwise unrevealing. Urinalysis appears contaminated. The patient remained persistently tachycardic in the 130s despite 2 L of IV fluids. She received 3 rounds of IV antiemetics and continue to experience significant nausea and inability to keep down fluids. The patient will be admitted to the [facility] hospitalist service. Please see hospitalist dictation regarding ongoing management care of this patient. The chart was completed utilizing [employer] Speech voice recognition software. Grammatical errors, random word insertions, pronoun errors, and incomplete sentences are an occasional consequence of this system due to software limitations, ambient noise, and hardware issues. Any formal questions or concerns about the content, text, or information contained within the body of this dictation should be directly addressed to the provider for clarification. Impression & Plan Abdominal pain, Tachycardia, Nausea & vomiting, Diarrhea Discharge Plan Visit Data Chief Complaint: Diarrhea Stated Complaint: DIARRHEA,VOMITING, ABD PAIN ED Provider: Tony Alba ED Midlevel Provider: Layne Hannon Discharge Problem: Abdominal pain, Tachycardia, Nausea & vomiting, Diarrhea Patient Disposition: Admitted As Inpatient Discharge Instructions Interventions: ED Discharge Assessment Last Done: 12/09/21 16:12
[2021-12-09] MEDS ORDERED: SODIUM CHLORIDE 0.9% 1000ML 1,000 ML IV SCH (09:45)
[2021-12-09 10:00] LABS: Basophils # (auto) 0.02 K/uL (0-0.2); Basophils % (auto) 0.1 %; Eosinophils # (auto) 0.01 K/uL (0-0.5); Eosinophils % (auto) 0.1 %; Hemoglobin 16.1 g/dL (12.0-16.0); Immature Granulocytes % (auto) 1.1 %; Lymphocytes # (auto) 0.83 K/uL (1.2-3.4); Lymphocytes % (auto) 4.4 %; Mean Corpuscular Hemoglobin 28.8 pg (25-34); Mean Corpuscular Hgb Conc 34.3 g/dL (32-36); Mean Corpuscular Volume 84.1 fL (80-100); Mean Platelet Volume 9.2 fL (7.4-10.4); Monocytes # (auto) 1.09 K/uL (0.11-0.59); Monocytes % (auto) 5.7 %; Neutrophils # (auto) 16.85 K/uL (1.4-6.5); Neutrophils % (auto) 88.6 %; Platelet Count 308 K/uL (130-400); RDW Coefficient of Variation 14.9 % (11.5-14.5); RDW Standard Deviation 45.5 fL (36.4-46.3); Red Blood Count 5.59 M/uL (4.2-5.4)
[2021-12-09] MEDS ORDERED: SODIUM CHLORIDE 0.9% 1000ML 1,000 ML IV ONE (10:13)
[2021-12-09 10:22] LABS: Alanine Aminotransferase 38 U/L (7-52); Albumin Globulin Ratio 1.4 (0.9-2); Albumin Level 4.4 gm/dl (3.4-5.0); Alkaline Phosphatase 101 U/L (34-104); Anion Gap 13 (3-11); Aspartate Aminotransferase 18 U/L (13-39); Bilirubin,Total 1.7 mg/dl (0.2-1.0); Blood Urea Nitrogen 20 mg/dl (6-23); Calcium 9.2 mg/dl (8.5-10.1); Carbon Dioxide 21 mmol/L (21-32); Chloride 103 mmol/L (98-107); Est GFR (African American) 81.4 ml/min; Est GFR (Non-African American) 70.2 ml/min; Globulin 3.2 gm/dl (2.5-4.0); Glucose 137 mg/dl (70-99(Fasting)); Lipase 50 U/L (11-82); Potassium 3.9 mmol/L (3.5-5.1); Sodium 137 mmol/L (136-145); Total Protein 7.6 gm/dl (6.0-8.3)
[2021-12-09] MEDS ORDERED: OPTIRAY 320 100ml IV ONE (11:39)
[2021-12-09 11:49] LABS: Appearance Urine Clear (Clear); Bacteria Urine Automated Negative (Negative); Bilirubin Urine Negative (Negative); Blood Urine Negative (Negative); Color Urine Dark Yellow; Epithelial Cell Urine Auto >30 /lpf (0-5); Glucose Urine UA Negative (Negative); Ketones Urine Trace (Negative); Leukocyte Esterase Urine Negative (Negative); Nitrite Urine Negative (Negative); Protein Urine 1+ (Negative); RBC Urine Automated 0-4 /hpf (0-4); Specific Gravity Urine 1.032 (1.000-1.030); Urobilinogen Urine Negative (Negative)
--- NOTE | 2021-12-09 12:08 | CT Scan Report ---
CT SCAN OF THE ABDOMEN AND PELVIS WITH IV CONTRAST CLINICAL HISTORY: Nausea and vomiting. Diarrhea. Leukocytosis. Epigastric abdominal pain. COMPARISON STUDY: Abdominal CT dated 10/18/2021. TECHNIQUE: Following the IV administration of 96 cc of Optiray 320, CT scan of the abdomen and pelvi s is performed from the lung bases to the proximal femora. Images are reviewed in the axial, sagittal , and coronal planes. IV contrast was administered without complication. A dose lowering technique wa s utilized adhering to the principles of ALARA. CT DOSE: 1050.29 mGy.cm FINDINGS: Lung bases: The heart is normal in size and without pericardial effusion. The lung bases are clear. T here is a small hiatal hernia. Liver: The contrast-enhanced liver is normal in size, contour, and attenuation. There is no intrahepa tic biliary ductal dilatation. The hepatic veins and portal veins are patent. Gallbladder: Surgically absent noting clips in the gallbladder fossa. Spleen: Normal in size and attenuation. Pancreas: Unremarkable. Adrenal glands: Unremarkable. Kidneys: The contrast enhanced kidneys are normal in size and without hydronephrosis. The kidneys enh ance symmetrically. Abdominal vasculature: The abdominal aorta is normal in course and caliber. Bowel: There is no bowel obstruction. There are fluid-filled loops of small bowel in the pelvis, and fluid is seen throughout the colon. There is no significant bowel wall thickening or surrounding infl ammation.. The appendix is well-visualized and normal. Peritoneum: There is no intraperitoneal free air or abdominal ascites. There is a fat-containing umbi lical hernia. Lymphadenopathy: None. Pelvic viscera: The bladder is decompressed and not well evaluated. The uterus and adnexa are normal as visualized noting small ovarian follicles. Skeletal structures: No lytic or blastic lesions are seen. IMPRESSION: 1. Findings suggest a nonspecific enterocolitis. Clinical correlation will be required. 2. Status post cholecystectomy. 3. Additional findings as above. ACT 112: Negative or not required by law. Electronically signed by: Humza Cates M.D. 12/09/2021 12:06 PM
[2021-12-09] MEDS ORDERED: PROMETHAZINE 25 MG/51 ML BAG IV STA (13:37)
[2021-12-09] MEDS ORDERED: diphenhydrAMINE 50 MG/ML VIAL IV STA (13:37)
[2021-12-09] MEDS ORDERED: HYDROCORTISONE SOD SUCCINATE 100 MG/2 ML VIAL IV STA (13:43)
--- NOTE | 2021-12-09 14:45 | History & Physical Report ---
Date of Service December 09, 2021 Assessment & Plan (1) Enteritis: Plan: Highly suspicious for viral etiology. [facility] panel is pending. Plan - copious IV hydration (given low-normal BPs will use 150cc/hr to start), stress dose IV hydrocortisone, clear liquid diet as tolerated, anti-emetics, IV pepcid x 1 now then BID thereafter, and repeat labs in am. I added a mag level on to her admission labs and this returned low-normal at 1.7 thus I gave mag sulfate 1gm x 1. (2) Sepsis: Plan: 2nd to #1. meets criteria for such. would not place on antibiotics, however, as #1 is likely viral in etiology. she has had cdiff in the past but colon appears normal on CT today; thus, more likely viral. follow blood cultures. repeat labs am. Of note - COVID testing is negative today. (3) Dehydration: Plan: s/p IV fluid bolus in ER. Follow this with NS with KCL at 150cc/hr. Clear liquid diet as tolerated. labs in am. (4) Steroid dependence: Plan: 8mg prednisone/day for SLE. Will give stress dose steroids for #1, #2 -- hydrocortisone 100mg IV x 1 now, then 50mg IV TID thereafter. Copious IV fluids. Follow BPs carefully. (5) Sinus tachycardia: Plan: history of such, on beta ernie- metoprolol 50mg BID. has seen Dr Joaquin Baum for this in 2020. previous echo 2020 with preserved LV Fx. TSH wnl 2020. Hemoglobin today wnl. cont her metoprolol but given the low normal BPs today will lower dose to 25mg BID. (6) Morbid obesity with BMI of 40.0-44.9, adult: Plan: BMI about 40 (7) HTN (hypertension): Plan: given low normal BPs will hold aldactone, hold lisinopril, and lower her metoprolol succinate to 25mg BID. gradually reintroduce her usual regimen as BPs will allow. 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 as well cont prophylactic fluconazole M/W/F (MAR says 50mg, but pharmacy record says 100mg - will need to clarify dose) (10) Recurrent pulmonary embolism: Plan: on coumadin INR returned at 1.9 today continue usual coumadin regimen of 5mg daily except 2.5mg on /Fridays INR in am (11) GERD (gastroesophageal reflux disease): Plan: cont PPI twice daily due to persistent upper GI symptoms will add H2 ernie as well cont carafate (12) Hypothyroidism: Plan: TSH 0.3 in 08/2021 cont synthroid Plan: updated at bedside today place on observation status for now History of Present Illness Chief Complaint: nausea, vomiting, diarrhea Primary Care Provider: Chio Curran, 31yo female with steroid-dependent SLE, hypothyroidism, recurrent episodes of PE on chronic coumadin (managed by Dr Paco Padilla - [facility] Anticoagulation clinic), tachycardia on beta ernie therapy, and recent hospitalization for SIRS/sepsis 2nd to UTI presents with the acute onset of severe nausea, emesis, and diarrhea beginning at 0100 this am. Since the illness began she has been unable to eat/drink. She has felt dizzy with trying to stand or ambulate. Patient states that yesterday she was in her normal state of health and went to bed feeling fine. She has had no recent travel. Several family members did have a presumed viral gastroenteritis in the last 2 weeks (parents, others). She has two children under the age of 10 and both have been well. INR on 11/29/21 was 2. Coumadin schedule - 2.5mg on Thursday/Thursday; 5mg all other days. Upon ER presentation today initial systolic BP was <100, improving s/p copious IV hydration. Allergies Allergy/AdvReac Type Severity Reaction Status Date / Time egg Allergy Severe Anaphylaxis Verified 12/09/21 13:27 Penicillins Allergy Intermediate Rash Verified 12/09/21 13:27 Sulfa (Sulfonamide Allergy Mild Rash Verified 12/09/21 13:27 Antibiotics) metformin AdvReac Intermediate Diarrhea Verified 12/09/21 13:27 metoclopramide AdvReac Mild SHAKY Verified 12/09/21 13:27 Home Medications Medication Instructions Recorded Confirmed Type famotidine 40 mg tablet 40 mg PO HS 03/03/19 12/09/21 History ketoconazole 2 % shampoo 1 applic TOPICAL DIRECTED 03/03/19 12/09/21 History multivitamin 1 tab PO HS 03/03/19 12/09/21 History omeprazole 20 mg tablet,delayed 20 mg PO BID 03/03/19 12/09/21 History release gabapentin 600 mg tablet 600 mg PO BID 08/18/20 12/09/21 History ondansetron 4 mg disintegrating 4 mg PO Q6H PRN 08/18/20 12/09/21 History tablet albuterol sulfate 90 mcg/actuation 1 inh INHALATION QID PRN #1 ea 10/12/20 12/09/21 Rx breath activated powder inhaler sumatriptan succinate 50 mg tablet 50 mg PO DAILY PRN #10 tab 01/10/21 12/09/21 Rx belimumab 200 mg/mL subcutaneous 200 mg SUBCUT WK 03/05/21 12/09/21 History auto-injector (Benlysta) metoprolol succinate 100 mg 50 mg PO BID 04/16/21 12/09/21 History tablet,extended release 24 hr (Toprol XL) hydroxychloroquine 200 mg tablet 200 mg PO BID 05/22/21 12/09/21 History (Plaquenil) fremanezumab-vfrm 225 mg/1.5 mL 225 mg SUBCUT MONTHLY #1.5 ml 08/06/21 12/09/21 Rx subcutaneous auto-injector (Ajovy) levothyroxine 150 mcg tablet 150 mcg PO QAM #30 tab 09/02/21 12/09/21 Rx (Levoxyl) nortriptyline 25 mg capsule 25 mg PO HS cap 09/30/21 12/09/21 History prednisone 1 mg tablet 3 mg PO QAM tab 09/30/21 12/09/21 History warfarin 5 mg tablet See Rx Instructions PO UD #90 tab 10/28/21 12/09/21 Rx fluconazole 200 mg tablet 50 mg PO 3XWK tab 11/29/21 12/09/21 History mycophenolate mofetil 250 mg 250 mg PO QAM cap 11/29/21 12/09/21 History capsule (CellCept) potassium chloride 20 mEq 20 meq PO BID #60 tab 12/02/21 12/09/21 Rx tablet,extended release spironolactone 100 mg tablet 100 mg PO DAILY@1200 #30 tab 12/02/21 12/09/21 Rx buspirone 10 mg tablet 10 mg PO BID 12/09/21 12/09/21 History cholecalciferol (vitamin D3) 1,250 50,000 unit PO WK 12/09/21 12/09/21 History mcg (50,000 unit) capsule (D3-50 Cholecalciferol) fluocinonide 0.05 % topical 1 applic TOPICAL DAILY 12/09/21 12/09/21 History solution lisinopril 5 mg tablet 5 mg PO HS 12/09/21 12/09/21 History mometasone 50 mcg/actuation nasal 1 spray INTRANASAL DAILY 12/09/21 12/09/21 History spray prednisone 5 mg tablet 5 mg PO QAM 12/09/21 12/09/21 History sucralfate 1 gram tablet 1 g PO AC 12/09/21 12/09/21 History valacyclovir 1 gram tablet 2 mg PO BID 12/09/21 12/09/21 History Past Med/Surg History Medical History Abnormal menses Acute pancreatitis (12/16/12) Anemia Ankylosing spondylitis Class 2 obesity in adult Daytime sleepiness Depressive disorder, not elsewhere classified (12/16/12) Encounter for visit Encounter for routine gynecological examination with Papanicolaou smear of cervix Fatigue Gastro-esophageal reflux disease with esophagitis (12/16/12) Gastroparesis Jess's disease High risk medication use History of lupus anticoagulant disorder History of pulmonary embolus (PE) History of vasculitis Hypokalemia Hypothyroidism Irritable bowel syndrome (12/16/12) Labor established (08/02/13) Laryngopharyngeal reflux Lupus Malabsorption Obesity Obesity (BMI 30-39.9) FELECIA (obstructive sleep apnea) Other pulmonary embolism and infarction (12/16/12) Palpitations PCOS (polycystic ovarian syndrome) Pleurisy Polycystic ovaries (12/16/12) Recurrent pulmonary embolism Salt craving Sensorineural hearing loss (SNHL) of right ear with unrestricted hearing of left ear Shortness of breath Snoring Tachycardia Vitamin D deficiency Vulvovaginitis Surgical History History of arthroscopy History of knee surgery Meniscus repair left - 2016,2018 Meniscus repair right - 2009, 2011 History of surgery on wrist History of tooth extraction History of wisdom tooth extraction Hx of cholecystectomy Family History Grandmother (Maternal) Breast cancer Mother Hypertension Asthma Gastroparesis Grandmother Hypertension Cancer Father Hearing loss Other Allergies Coronary heart disease Diabetes Dyslipidemia Emphysema, unspecified Heart disease No family history of adverse response to anesthesia No family history of bleeding disorder No pertinent family history in first degree relatives Denies family history of Lupus (systemic lupus erythematosus) Lung disease Social History (Updated 12/10/21 @ 00:29 by Kamari Gardner) Smoking Status: Never smoker Second Hand Exposure: No; Do You Dip or Chew Tobacco: No; Tobacco Cessation Education Requested by Patient: No Hx Alcohol Use: No Hx Substance Use: No Preferred Language: Nepalese Communication Ability: Effective Senior Training [employer] Development Rep Required: No Beliefs That Will Affect Care: None marital status: Current Living Situation: Family Current Living Situation Comment: [place] current occupational status: employed current occupation: [employer] - no longer working however How many Children do You have: 2 Other Information That Helps Us Care for You: No Feels Safe at Home: Yes Safety Concerns: Feels Safe At This Time Assistive Devices: None Review of Systems Review of Systems: gen - hot/cold chills, no fever; no recent weight loss; appetite has been poor since her GI illness began eyes - no change in vision HENT - no change in hearing; no ear pain; no nasal congestion; no dysphagia CV - no chest pain pulm - no cough or dyspnea neck - no pain GI - mild stomach discomfort (high epigastric region); no hematemesis; +N/V/D; no blood / melena per rectum - does not have menses (depo shots); no dysuria; had UTI 1 month ago musculo - recent walking boot usage for R lateral ankle fracture, dx fall 2020; no joint pains otherwise skin - no rash neuro - no headache endo - no DM psych - denies depression Physical Exam Physical Exam: gen - obese, looks sick but nontoxic, looks dehydrated eyes - PERRL HENT - MM very dry, TMs clear b/l, nose clear neck - supple, no JVD heart - tachy, s1s2, no murmur lungs - CTA b/l abd - soft NT ND BS+; no HSM ext - no edema, fingertips of hands cool; feet cool; pulses 2+ b/l neuro - strength 5/5 x 4 exts; DTRs 2-3+ b/l skin - no rash musculo - no tenderness with palpation of right ankle psych - a/o x 3 Results & Data Results & [facility] ([facility]) Vital Signs (Past 12 Hours) Vital Signs Temp Pulse Pulse Resp BP BP Pulse Ox 12/09/21 13:35 130 H 18 116/76 100 12/09/21 11:45 123 H 18 104/53 L 100 12/09/21 11:31 99 12/09/21 09:16 36.4 C L 134 H 18 95/74 L 100 Laboratory Results Laboratory Results - last 24 hr 12/09/21 12/09/21 12/09/21 09:51 09:51 11:25 WBC 19.00 H RBC 5.59 H Hgb 16.1 H Hct 47.0 MCV 84.1 MCH 28.8 MCHC 34.3 RDW Std Deviation 45.5 RDW Coeff of Axel 14.9 H Plt Count 308 MPV 9.2 Immature Gran % (Auto) 1.1 Neut % (Auto) 88.6 Lymph % (Auto) 4.4 [place] % (Auto) 5.7 Eos % (Auto) 0.1 Baso % (Auto) 0.1 Neut # (Auto) 16.85 H Lymph # (Auto) 0.83 L [place] # (Auto) 1.09 H Eos # (Auto) 0.01 Baso # (Auto) 0.02 Immature Gran # (Auto) 0.20 H Sodium 137 Potassium 3.9 Chloride 103 Carbon Dioxide 21 Anion Gap 13 H BUN 20 Creatinine 1.05 Est Cr Clr Drug Dosing Not Reportable Est GFR ( Amer) 81.4 Est GFR (Non-Af Amer) 70.2 BUN/Creatinine Ratio 19.0 Glucose 137 H Calcium 9.2 Total Bilirubin 1.7 H AST 18 ALT 38 Alkaline Phosphatase 101 Total Protein 7.6 Albumin 4.4 Globulin 3.2 Albumin/Globulin Ratio 1.4 Lipase 50 Urine Color Dark Yellow Urine Appearance Clear Urine pH 5.0 Ur Specific [place] 1.032 H Urine Protein 1+ H Urine Glucose (UA) Negative Urine Ketones Trace H Urine Blood Negative Urine Nitrite Negative Urine Bilirubin Negative Urine Urobilinogen Negative Ur Leukocyte Esterase Negative Urine WBC (Auto) 1-5 Urine RBC (Auto) 0-4 U Hyaline Cast (Auto) 5-10 H U Epithel Cells (Auto) >30 H Urine Bacteria (Auto) Negative POC Ur Test SARS-CoV-2, RNA, NAAT 12/09/21 12/09/21 11:30 13:50 WBC RBC Hgb Hct MCV MCH MCHC RDW Std Deviation RDW Coeff of Axel Plt Count MPV Immature Gran % (Auto) Neut % (Auto) Lymph % (Auto) [place] % (Auto) Eos % (Auto) Baso % (Auto) Neut # (Auto) Lymph # (Auto) [place] # (Auto) Eos # (Auto) Baso # (Auto) Immature Gran # (Auto) Sodium Potassium Chloride Carbon Dioxide Anion Gap BUN Creatinine Est Cr Clr Drug Dosing Est GFR ( Amer) Est GFR (Non-Af Amer) BUN/Creatinine Ratio Glucose Calcium Total Bilirubin AST ALT Alkaline Phosphatase Total Protein Albumin Globulin Albumin/Globulin Ratio Lipase Urine Color Urine Appearance Urine pH Ur Specific [place] Urine Protein Urine Glucose (UA) Urine Ketones Urine Blood Urine Nitrite Urine Bilirubin Urine Urobilinogen Ur Leukocyte Esterase Urine WBC (Auto) Urine RBC (Auto) U Hyaline Cast (Auto) U Epithel Cells (Auto) Urine Bacteria (Auto) POC Ur Test NEG SARS-CoV-2, RNA, NAAT NEGATIVE Diagnostic Findings Abdomen/Pelvis CT 12/09/21 10:53 CT SCAN OF THE ABDOMEN AND PELVIS WITH IV CONTRAST CLINICAL HISTORY: Nausea and vomiting. Diarrhea. Leukocytosis. Epigastric abdominal pain. COMPARISON STUDY: Abdominal CT dated 10/18/2021. TECHNIQUE: Following the IV administration of 96 cc of Optiray 320, CT scan of the abdomen and pelvis is performed from the lung bases to the proximal femora. Images are reviewed in the axial, sagittal, and coronal planes. IV contrast was administered without complication. A dose lowering technique was utilized adhering to the principles of ALARA. CT DOSE: 1050.29 mGy.cm FINDINGS: Lung bases: The heart is normal in size and without pericardial effusion. The lung bases are clear. There is a small hiatal hernia. Liver: The contrast-enhanced liver is normal in size, contour, and attenuation. There is no intrahepatic biliary ductal dilatation. The hepatic veins and portal veins are patent. Gallbladder: Surgically absent noting clips in the gallbladder fossa. Spleen: Normal in size and attenuation. Pancreas: Unremarkable. Adrenal glands: Unremarkable. Kidneys: The contrast enhanced kidneys are normal in size and without hydronephrosis. The kidneys enhance symmetrically. Abdominal vasculature: The abdominal aorta is normal in course and caliber. Bowel: There is no bowel obstruction. There are fluid-filled loops of small bowel in the pelvis, and fluid is seen throughout the colon. There is no significant bowel wall thickening or surrounding inflammation.. The appendix is well-visualized and normal. Peritoneum: There is no intraperitoneal free air or abdominal ascites. There is a fat-containing umbilical hernia. Lymphadenopathy: None. Pelvic viscera: The bladder is decompressed and not well evaluated. The uterus and adnexa are normal as visualized noting small ovarian follicles. Skeletal structures: No lytic or blastic lesions are seen. IMPRESSION: 1. Findings suggest a nonspecific enterocolitis. Clinical correlation will be required. 2. Status post cholecystectomy. 3. Additional findings as above. ACT 112: Negative or not required by law. Electronically signed by: Humza Cates M.D. 12/09/2021 12:06 PM EKG - sinus tach, no ST changes PG Care Time/CCT Total # of Minutes Spent Total Time Spent with Patient: Total time spent is greater than 50% in coordination of care (as documented) at patient's floor/unit and/or counseling patient: Coding Level of Care Code INT OBSERVATION CARE 70M LVL 3 Diagnoses Enteritis K52.9 Dehydration E86.0 Steroid dependence F19.20 Sinus tachycardia R00.0 Morbid obesity with BMI of 40.0-44.9, adult E66.01; Z68.41 HTN (hypertension) I10 FELECIA (obstructive sleep apnea) G47.33 Lupus M32.9 Recurrent pulmonary embolism I26.99 GERD (gastroesophageal reflux disease) K21.9 Hypothyroidism E03.8; E06.3 Hypothyroidism type: due to Jess's thyroiditis Sepsis A41.9 (1) Hypothyroidism 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
[2021-12-09] MEDS ORDERED: FAMOTIDINE 20MG IV PUSH 20 MG/5 ML SYR IV STA (14:50)
[2021-12-09 15:19] LABS: INR 1.9 (0.9-1.1); Prothrombin Time 19.9 Seconds (9.0-12.0)
[2021-12-09] MEDS ORDERED: MAGNESIUM SULFATE / D5W 1 GM/100 ML BAG IV STA (16:11)
[2021-12-09] MEDS ORDERED: SUMAtriptan succinate 50 MG TAB PO PRN (16:43)
[2021-12-09] MEDS ORDERED: ALBUTEROL HFA 8 GM INHALER INH PRN (16:43)
[2021-12-09] MEDS ORDERED: ACETAMINOPHEN 325 MG TAB PO PRN (16:43)
[2021-12-09] MEDS ORDERED: ONDANSETRON INJ 2 MG/ML 2 ML VIAL IV PRN (16:43)
--- NOTE | 2021-12-09 16:57 | Electrocardiogram Report ---
Test Reason : Blood Pressure : / mmHG Vent. Rate : 133 BPM Atrial Rate : 133 BPM P-R Int : 134 ms QRS Dur : 062 ms QT Int : 278 ms P-R-T Axes : 047 053 036 degrees QTc Int : 413 ms Poor data quality, interpretation may be adversely affected Sinus tachycardia Nonspecific ST abnormality Otherwise normal ECG When compared with ECG of 19-OCT-2021 00:04, No significant change was found Confirmed by Tio Cook ([id number]) on 12/09/2021 4:57:12 PM Referred By: REFERRED SELF Confirmed By:Kennedy Cook
[2021-12-09] MEDS: NSS + 20MEQ KCL 20 MEQ/1,000 ML BAG IV SCH (17:28)
[2021-12-09] MEDS: SUCRALFATE 1 GM TAB PO SCH (17:37)
[2021-12-09] MEDS: MYCOPHENOLATE MOFETIL 250 MG CAP PO SCH (17:38)
[2021-12-09] MEDS: FLUCONAZOLE 50 MG TAB PO SCH (17:38)
[2021-12-09] MEDS: WARFARIN SOD 5 MG TAB PO SCH (17:40)
[2021-12-09 18:52] LABS: Adenovirus F 40/41 PCR Not Detected (NotDetected); Astrovirus PCR Not Detected (NotDetected); Campylobacter PCR Not Detected (NotDetected); Clostridium diff Toxin A/B PCR Not Detected (NotDetected); Cryptosporidium PCR Not Detected (NotDetected); Cyclospora cayetanensis PCR Not Detected (NotDetected); Entamoeba histolytica PCR Not Detected (NotDetected); Enteroaggregative E.coli(EAEC) Not Detected (NotDetected); Enteropathogenic E.coli (EPEC) Not Detected (NotDetected); Enterotoxigenic E.coli (ETEC) Not Detected (NotDetected); Giardia lamblia PCR Not Detected (NotDetected); Plesiomonas shigelloides PCR Not Detected (NotDetected); Rotavirus A PCR Not Detected (NotDetected); Salmonella PCR Not Detected (NotDetected); Sapovirus PCR Not Detected (NotDetected); Shiga-like Toxin E.coli (STEC) Not Detected (NotDetected); Shigella/Enteroinvasive E.coli Not Detected (NotDetected); Vibrio cholerae PCR Not Detected (NotDetected); Vibrio species PCR Not Detected (NotDetected); Yersinia enterocolitica PCR Not Detected (NotDetected)
[2021-12-09 19:18] LABS: Norovirus GI/GII PCR DETECTED (NotDetected)
[2021-12-09] MEDS: busPIRone 5 MG TAB PO SCH (19:37)
[2021-12-09] MEDS: GABAPENTIN 600 MG TAB PO SCH (19:38)
[2021-12-09] MEDS: HYDROXYCHLOROQUINE SULFATE 200 MG TAB PO SCH (19:39)
[2021-12-09] MEDS: METOPROLOL SUCC 25MG EXT REL TAB PO SCH (19:39)
[2021-12-09] MEDS: NORTRIPTYLINE HCL 25 MG CAP PO SCH (19:40)
[2021-12-09] MEDS: MULTIVITAMIN TAB PO SCH (19:40)
[2021-12-09] MEDS: PANTOprazole 40 MG TAB PO SCH (19:41)
[2021-12-09] MEDS: FAMOTIDINE 20 MG in SYRINGE 3 ML IV SCH (21:00)
[2021-12-09] MEDS ORDERED: valACYclovir HCL 500 MG TABLET PO SCH (21:00)
[2021-12-09] MEDS: HYDROCORTISONE SOD 50 MG in SYRINGE 0 ML IV SCH (21:01)
[2021-12-09] MEDS: PROMETHAZINE HCL 12.5 MG in SODIUM CHLORIDE 0.9% 50 ML IV PRN (21:02)
[2021-12-10] MEDS: NSS + 20MEQ KCL 20 MEQ/1,000 ML BAG IV SCH ×2 (00:22→05:47)
[2021-12-10] MEDS: LEVOTHYROXINE SODIUM 150 MCG TABLET PO SCH (05:46)
[2021-12-10 06:23] LABS: INR 2.2 (0.9-1.1); Prothrombin Time 22.2 Seconds (9.0-12.0)
[2021-12-10 06:30] LABS: BUN Creatinine Ratio 11.8 (10-20); Calcium 7.8 mg/dl (8.5-10.1); Creatinine Clr Calc Pharmacy 120.3 ml/min; Est GFR (African American) 120.3 ml/min; Est GFR (Non-African American) 103.8 ml/min; Magnesium 2.1 mg/dl (1.7-2.4); Potassium 4.4 mmol/L (3.5-5.1)
[2021-12-10 06:32] LABS: Hematocrit (blood only) 35.4 % (37-47); Hemoglobin 11.8 g/dL (12.0-16.0); Mean Corpuscular Hemoglobin 28.2 pg (25-34); Mean Corpuscular Hgb Conc 33.3 g/dL (32-36); Mean Corpuscular Volume 84.7 fL (80-100); Mean Platelet Volume 9.3 fL (7.4-10.4); Platelet Count 231 K/uL (130-400); RDW Coefficient of Variation 15.4 % (11.5-14.5); Red Blood Count 4.18 M/uL (4.2-5.4); White Blood Count 7.05 K/uL (4.8-10.8)
[2021-12-10] MEDS: busPIRone 5 MG TAB PO SCH ×2 (08:36→20:11)
[2021-12-10] MEDS: PANTOprazole 40 MG TAB PO SCH ×2 (08:36→20:11)
[2021-12-10] MEDS: SUCRALFATE 1 GM TAB PO SCH ×3 (08:36→16:43)
[2021-12-10] MEDS: FLUTICASONE PROPIONATE NA SPR 16 GM BTL SCH (08:36)
[2021-12-10] MEDS: MYCOPHENOLATE MOFETIL 250 MG CAP PO SCH (08:36)
[2021-12-10] MEDS: METOPROLOL SUCC 25MG EXT REL TAB PO SCH ×2 (08:36→20:11)
[2021-12-10] MEDS: HYDROXYCHLOROQUINE SULFATE 200 MG TAB PO SCH ×2 (08:36→20:11)
[2021-12-10] MEDS: GABAPENTIN 600 MG TAB PO SCH ×2 (08:37→20:11)
[2021-12-10] MEDS: HYDROCORTISONE SOD 50 MG in SYRINGE 0 ML IV SCH ×3 (08:37→20:12)
[2021-12-10] MEDS: FAMOTIDINE 20 MG in SYRINGE 3 ML IV SCH ×2 (09:08→20:11)
[2021-12-10] MEDS: PROMETHAZINE HCL 12.5 MG in SODIUM CHLORIDE 0.9% 50 ML IV PRN ×2 (09:08→21:53)
--- NOTE | 2021-12-10 14:48 | Ultrasound Report ---
RIGHT UPPER EXTREMITY VENOUS DOPPLER HISTORY: unilateral right arm swelling, hypercoag hx w/ DVT on depo COMPARISON STUDY: None. FINDINGS: The right internal jugular vein is patent. There is normal flow within the right subclavian vein. There is normal flow and compressibility within the right axillary, basilic, brachial, radial, ulnar, and visualized cephalic veins. IMPRESSION: No DVT within the right upper extremity. ACT 112: Negative or not required by law. Electronically signed by: Ashu Gottlieb M.D. 12/10/2021 2:46 PM
--- NOTE | 2021-12-10 15:25 | Hospitalist Progress Note ---
Date of Service December 10, 2021 Assessment & Plan (1) Enteritis: Plan: Gastroenteritis 2/2 norovirus Patient substantially volume depleted on admission, lightheaded, dizzy, tachycardic, hypotensive. Did improve with repletion, remains clinically hypovolemic on morning assessment. Additional IV fluids given. P.o. intake is just starting to come back, but is not tolerating any solids and minimal liquids at time of morning assessment. Magnesium level low, normalized with repletion Potassium normal, trended Protonix twice daily, famotidine twice daily Zofran 4 mg every 6 hours as needed Electrolyte check daily Discussed with patient that norovirus is generally self-limited virus lasting 24 to 48 hours which can present with severe nausea/vomiting/diarrhea. Can typically be managed at home with fluid intake. Given that she was severely volume depleted, remains volume depleted on exam, and is tolerating minimal liquids with no solids reasonable to continue observation with IV fluid support as needed as inpatient at this time. Anticipate symptomatic improvement with natural course of illness over the next 24 hours CTA/P: Consistent with nonspecific enterocolitis. Status post cholecystectomy. (2) Sepsis: Plan: Sepsis 2/2 gastro enteritis of norovirus Met sepsis criteria on admission Viral etiology, antibiotics deferred Labs treatment as above Covid negative on admission (3) Dehydration: Plan: As above (4) Steroid dependence: Plan: -8mg prednisone/day for SLE. -Based on stress dose steroids during admission. Received 100 mg IV, continued on 50 mg IV 3 times daily, continue up to 3 days as needed -Copious IV fluids. - Follow BPs carefully. (5) Sinus tachycardia: Plan: -history of such, on beta ernie- metoprolol 50mg BID. -has seen Dr Joaquin Baum for this in 2020. -previous echo 2020 with preserved LV Fx. -TSH wnl 2020. -Hemoglobin wnl. -Overall continued dose reduced at 25 twice daily dose reduced for hypokalemia. If clinically improves resume normal dosing at discharge (6) Morbid obesity with BMI of 40.0-44.9, adult: Plan: -BMI about 40 (7) HTN (hypertension): Plan: -Tenuous borderline hypotensive. Continue to hold Aldactone, lisinopril, and continue dose reduce metoprolol. 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 Continues to have some nausea, vomiting improved since last night. Did have recurrent severe nausea and vomiting with concurrent diarrhea up until this morning. Patient does continue to feel weak and lightheaded, p.o. intake starting to improve today. Denies chest pain, chest pressure, shortness of breath, difficulty breathing. She did attempt to ambulate in the room today, reports she felt slightly dizzy on standing which is unusual for her. Pressure was 90s/60s this morning. Does have a history of PE, notes right arm swelling but this is also the arm her IV is in. No other symptoms/concerns at time of visit Review of Systems Review of Systems: All systems reviewed & are unremarkable except as noted in Subjective Physical Exam Physical Exam: General: A&Ox3. NAD. Cooperative. HEENT: Atraumatic, normocephalic. Visual acuity and hearing grossly intact Pulm: CTAB A&P. -wheezes, -rales, -rhonchi. Symmetrical chest rise. No increase in work of breathing. No respiratory distress. Cardiac: Tachycardic, -mrg. Radial pulses intact and symmetrical. Abdominal: Diffuse tenderness, no guarding, no rigidity nondistended, soft. BS present. Extremities: Warm, dry. Right hand with 1+ pitting edema of the hand and forearm. No other edema. Results & Data Results & Data ([facility]) Vital Signs (Past 12 Hours) Vital Signs Temp Pulse Pulse Resp BP Pulse Ox 12/10/21 12:09 36.7 C 100 H 18 126/73 94 12/10/21 08:03 36.7 C 100 H 18 99/61 L 94 12/10/21 07:46 91 H 12/10/21 03:52 36.8 C 100 H 19 102/65 98 PG Care Time/CCT Total # of Minutes Spent Total Time Spent with Patient: Total time spent is greater than 50% in coordination of care (as documented) at patient's floor/unit and/or counseling patient: Coding Level of Care Code 04323 Subseq Obs Care Lvl 2 Diagnoses Enteritis K52.9 Sepsis A41.9 Dehydration E86.0 Steroid dependence F19.20 Sinus tachycardia R00.0 Morbid obesity with BMI of 40.0-44.9, adult E66.01; Z68.41 HTN (hypertension) I10 FELECIA (obstructive sleep apnea) G47.33 Lupus M32.9 Recurrent pulmonary embolism I26.99 GERD (gastroesophageal reflux disease) K21.9 Hypothyroidism E03.8; E06.3 Hypothyroidism type: due to Jess's thyroiditis (1) Hypothyroidism 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
[2021-12-10] MEDS ORDERED: WARFARIN SOD 2.5 MG TAB PO SCH (16:00)
[2021-12-10] MEDS ORDERED: LOPERAMIDE HCL 2 MG CAP PO STA (19:41)
[2021-12-10] MEDS: NORTRIPTYLINE HCL 25 MG CAP PO SCH (20:11)
[2021-12-10] MEDS: MULTIVITAMIN TAB PO SCH (20:12)
[2021-12-10] MEDS ORDERED: KETOROLAC TROMETHAMINE 15 MG/ML VIAL IV ONE (22:33)
[2021-12-11] MEDS: LEVOTHYROXINE SODIUM 150 MCG TABLET PO SCH (05:35)
[2021-12-11 06:03] LABS: Hematocrit (blood only) 31.8 % (37-47); Hemoglobin 10.6 g/dL (12.0-16.0); Mean Corpuscular Hemoglobin 28.3 pg (25-34); Mean Corpuscular Hgb Conc 33.3 g/dL (32-36); Mean Platelet Volume 9.1 fL (7.4-10.4); Platelet Count 234 K/uL (130-400); RDW Coefficient of Variation 15.2 % (11.5-14.5); RDW Standard Deviation 47.7 fL (36.4-46.3); Red Blood Count 3.74 M/uL (4.2-5.4); White Blood Count 5.86 K/uL (4.8-10.8)
[2021-12-11 06:13] LABS: INR 2.3 (0.9-1.1); Prothrombin Time 23.2 Seconds (9.0-12.0)
[2021-12-11 06:25] LABS: BUN Creatinine Ratio 8.5 (10-20); Calcium 8.2 mg/dl (8.5-10.1); Est GFR (African American) 109.7 ml/min; Est GFR (Non-African American) 94.7 ml/min; Potassium 3.6 mmol/L (3.5-5.1)
[2021-12-11 06:48] LABS: Eosinophils # (manual) 0.05 K/uL (0-0.5); Eosinophils % (manual) 0.9 %; Monocytes # (manual) 0.16 K/uL (0.11-0.59); Monocytes % (manual) 2.7 %; Myelocytes # (manual) 0.05 K/uL (0-0); Myelocytes % (manual) 0.9 %; Neutrophils % (manual) 78.5 %
[2021-12-11] MEDS: SUCRALFATE 1 GM TAB PO SCH ×3 (07:43→15:54)
--- NOTE | 2021-12-11 08:41 | Hospitalist Progress Note ---
Date of Service December 11, 2021 Assessment & Plan (1) Enteritis: Plan: Gastroenteritis 2/2 norovirus Carafate before every meal and nightly Protonix twice daily, famotidine twice daily Zofran 4 mg every 6 hours as needed CTA/P: Consistent with nonspecific enterocolitis. Status post cholecystectomy. (2) Sepsis: Plan: Sepsis 2/2 gastro enteritis of norovirus Met sepsis criteria on admission Viral etiology, antibiotics deferred -covid negative (3) Dehydration: Plan: Replete (4) Steroid dependence: Plan: -8mg prednisone/day for SLE. -Based on stress dose steroids during admission. Received 100 mg IV, continued on 50 mg IV 3 times daily, continue up to 3 days as needed (5) Sinus tachycardia: Plan: -history of such, on beta ernie- metoprolol 50mg BID. -has seen Dr Joaquin Baum for this in 2020. -previous echo 2020 with preserved LV Fx. -TSH wnl 2020. -Hemoglobin wnl. -Overall continued dose reduced at 25 twice daily dose (6) Morbid obesity with BMI of 40.0-44.9, adult: Plan: BMI about 40 patient may be with dysfunctional uterine bleeding from endometrial thickening due to her obesity we will check a (7) HTN (hypertension): Plan: - Continue to hold Aldactone, lisinopril, and continue dose reduce metoprolol. 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 -cont prophylactic fluconazole M/W/F 100 mg Stress dose hydrocortisone as above, then can resume prednisone (10) Recurrent pulmonary embolism: Plan: -on coumadin -INR therapeutic -Patient having some vaginal bleeding will hold Coumadin temporarily at this time (11) GERD (gastroesophageal reflux disease): Plan: PPI/H2 as above, plus Carafate before every meal nightly (12) Hypothyroidism: Plan: TSH 0.3 in 08/2021 cont synthroid (13) Vaginal discharge: Plan: Patient with now bleeding vaginally with concerns could be endometrial overgrowth given her body habitus will hold her Coumadin and check a transvaginal ultrasound her hemoglobin on recheck was stable suggesting the first hemoglobin was likely due to dehydration and she reequilibrated after hydration. If the bleeding continues may consider SANDBLAST CARVER evaluation. Her anemia at this point time is considered to be anemia of chronic disease not acute blood loss anemia although she is may be having her menses we will check iron and iron binding capacity Admission and Anticipated Discharge Date Admission Date: December 09, 2021 Subjective Patient still with abdominal discomfort mostly in the epigastric area she is now having some dark brown discharge vaginally and then some bleeding which could be consistent with her menses. She states that she is typically on Depo although it is not included on her medication list. She is also anticoagulated with warfarin, her INR is therapeutic at 2.3 today and her platelet counts intact. Review of Systems Review of Systems: Moderate abdominal pain and distress no headache, no visual changes no speech or swallowing issues no chest pain, pressure or palpitations no shortness of breath, cough or wheezes Epigastric abdominal pain, no nausea or vomiting no dysuria, hematuria or frequency Brownish-reddish vaginal discharge no focal joint pain or swelling no back pain, CVA tenderness or radicular pain no bruising, bleeding or rashes no focal signs of weakness or numbness or altered sensation no complaints of anxiety or depression.. Physical Exam Physical Exam: The patient appeared well nourished and normally developed. Vital signs as documented. Head exam is normocephalic atraumatic Neck is without JVD, thyromegaly, or carotid bruits. Lungs are clear to auscultation, no focal loss of breath sounds Cardiac exam, Rhythm is regular.. No murmurs, rubs or gallops. Abdominal exam reveals normal bowel sounds, soft epigastric tenderness without organomegaly there is no lower quadrant tenderness or suprapubic tenderness or fullness Extremities are nonedematous and both pedal pulses are present Neurologic exam is alert and oriented, no focal loss of strength or sensation Skin is without bruises or rashes Psychologically is without concerns for anxiety or depression.. Results & Data Results & Data ([facility]) Vital Signs (Past 12 Hours) Vital Signs Temp Pulse Pulse Resp BP Pulse Ox 12/11/21 07:09 98.8 F 90 18 107/70 98 12/11/21 02:55 98.1 F 75 18 102/68 98 12/10/21 23:19 98.2 F 87 16 113/74 97 12/10/21 23:00 94 H PG Care Time/CCT Total # of Minutes Spent Total Time Spent with Patient: Total time spent is greater than 50% in coordination of care (as documented) at patient's floor/unit and/or counseling patient: Coding Level of Care Code 38493 Subseq Hosp Care Lvl 3 Diagnoses Enteritis K52.9 Sepsis A41.9 Dehydration E86.0 Steroid dependence F19.20 Sinus tachycardia R00.0 Morbid obesity with BMI of 40.0-44.9, adult E66.01; Z68.41 HTN (hypertension) I10 FELECIA (obstructive sleep apnea) G47.33 Lupus M32.9 Recurrent pulmonary embolism I26.99 GERD (gastroesophageal reflux disease) K21.9 Hypothyroidism E03.8; E06.3 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
[2021-12-11] MEDS: busPIRone 5 MG TAB PO SCH ×2 (09:15→20:20)
[2021-12-11] MEDS: HYDROCORTISONE SOD 50 MG in SYRINGE 0 ML IV SCH ×3 (09:15→20:20)
[2021-12-11] MEDS: FLUTICASONE PROPIONATE NA SPR 16 GM BTL SCH (09:15)
[2021-12-11] MEDS: HYDROXYCHLOROQUINE SULFATE 200 MG TAB PO SCH ×2 (09:15→20:21)
[2021-12-11] MEDS: FLUCONAZOLE 50 MG TAB PO SCH (09:15)
[2021-12-11] MEDS: GABAPENTIN 600 MG TAB PO SCH ×2 (09:16→20:22)
[2021-12-11] MEDS: METOPROLOL SUCC 25MG EXT REL TAB PO SCH ×2 (09:16→20:21)
[2021-12-11] MEDS: MYCOPHENOLATE MOFETIL 250 MG CAP PO SCH (09:16)
[2021-12-11] MEDS: PANTOprazole 40 MG TAB PO SCH ×2 (09:16→20:21)
[2021-12-11] MEDS: FAMOTIDINE 20 MG in SYRINGE 3 ML IV SCH ×2 (09:26→21:40)
[2021-12-11] MEDS ORDERED: ALUMINUM/MAGNESIUM SUSP 18 ML, LIDOCAINE VISCOUS 2% SOLN 6 ML, BARCODE IDENTIFIER 1 EA PO ONE (11:05)
[2021-12-11] MEDS ORDERED: ALUMINUM/MAGNESIUM SUSP 72 ML, LIDOCAINE VISCOUS 2% SOLN 24 ML, BARCODE IDENTIFIER 1 EA PO PRN (11:05)
[2021-12-11] MEDS: PROMETHAZINE HCL 12.5 MG in SODIUM CHLORIDE 0.9% 50 ML IV PRN ×2 (12:55→22:22)
--- NOTE | 2021-12-11 17:51 | Ultrasound Report ---
ULTRASOUND OF THE PELVIS CLINICAL HISTORY: Vaginal bleeding.. COMPARISON STUDY: Pelvic CT dated 12/09/2021 TECHNIQUE: Real-time, grayscale, and color flow sonography of the pelvis is performed both transabdom inally and endovaginally. Images are reviewed in the transverse and longitudinal planes. The endovagi nal examination is performed for better assessment of the ovaries and adnexa. FINDINGS: Uterus: The retroverted uterus is normal in size and heterogeneous in echotexture, measuring 6.2 x 3. 4 x 4.8 cm. Tiny nabothian cysts are noted in the cervix. Minimal debris is noted in the cervical can al. Endometrium: The endometrium is normal in appearance, and the endometrial stripe is normal in thickne ss measuring up to 0.4 cm. Ovaries: The ovaries are normal in size and morphology. The right ovary measures 2.2 x 1.6 x 2.2 cm a nd the left ovary measures 2.3 x 1.3 x 1.7 cm. Small follicles are noted. Normal Doppler waveforms ar e shown within both ovaries. Pelvis: There is no free fluid in the cul-de-sac. No concerning adnexal lesion is seen. IMPRESSION: Unremarkable sonographic assessment of the pelvis. ACT 112: Negative or not required by law. Electronically signed by: Humza Cates M.D. 12/11/2021 5:50 PM
[2021-12-11] MEDS: NORTRIPTYLINE HCL 25 MG CAP PO SCH (20:22)
[2021-12-11] MEDS ORDERED: KETOROLAC TROMETHAMINE 15 MG/ML VIAL IV PRN (20:56)
[2021-12-12] MEDS: LEVOTHYROXINE SODIUM 150 MCG TABLET PO SCH (05:36)
[2021-12-12] MEDS: SUCRALFATE 1 GM TAB PO SCH ×3 (07:58→16:10)
[2021-12-12] MEDS: FLUTICASONE PROPIONATE NA SPR 16 GM BTL SCH (08:01)
[2021-12-12 08:16] LABS: Hematocrit (blood only) 33.6 % (37-47); Hemoglobin 11.2 g/dL (12.0-16.0); Mean Corpuscular Hemoglobin 28.4 pg (25-34); Mean Corpuscular Hgb Conc 33.3 g/dL (32-36); Mean Corpuscular Volume 85.3 fL (80-100); Platelet Count 244 K/uL (130-400); RDW Coefficient of Variation 14.9 % (11.5-14.5); RDW Standard Deviation 46.6 fL (36.4-46.3); Red Blood Count 3.94 M/uL (4.2-5.4); White Blood Count 5.97 K/uL (4.8-10.8)
[2021-12-12 08:32] LABS: Prothrombin Time 20.6 Seconds (9.0-12.0)
[2021-12-12 09:01] LABS: Iron 34 mcg/dl (35-150); Unsaturated Iron Binding Cap 267 mcg/dl (155-355)
[2021-12-12] MEDS: FAMOTIDINE 20 MG in SYRINGE 3 ML IV SCH ×2 (09:28→20:18)
[2021-12-12] MEDS: GABAPENTIN 600 MG TAB PO SCH ×2 (09:29→20:18)
[2021-12-12] MEDS: HYDROCORTISONE SOD 50 MG in SYRINGE 0 ML IV SCH (09:29)
[2021-12-12] MEDS: HYDROXYCHLOROQUINE SULFATE 200 MG TAB PO SCH ×2 (09:29→20:20)
[2021-12-12] MEDS: busPIRone 5 MG TAB PO SCH ×2 (09:29→20:18)
[2021-12-12] MEDS: MYCOPHENOLATE MOFETIL 250 MG CAP PO SCH (09:29)
[2021-12-12] MEDS: METOPROLOL SUCC 25MG EXT REL TAB PO SCH ×2 (09:29→20:19)
[2021-12-12] MEDS: PANTOprazole 40 MG TAB PO SCH ×2 (09:29→20:20)
[2021-12-12] MEDS ORDERED: predniSONE 5 MG TAB PO ONE (11:08)
[2021-12-12] MEDS ORDERED: POTASSIUM CHLORIDE CRTAB 20 MEQ TABCR PO STA (11:09)
[2021-12-12] MEDS ORDERED: MAGNESIUM SULFATE / D5W 1 GM/100 ML BAG IV ONE (11:30)
[2021-12-12] MEDS: WARFARIN SOD 5 MG TAB PO SCH (16:10)
--- NOTE | 2021-12-12 16:33 | Hospitalist Progress Note ---
Date of Service December 12, 2021 Assessment & Plan (1) Enteritis: Plan: Gastroenteritis 2/2 norovirus, seems to be improving and nearing discharge Carafate before every meal and nightly Protonix twice daily, famotidine twice daily Zofran 4 mg every 6 hours as needed CTA/P: Consistent with nonspecific enterocolitis. Status post cholecystectomy. (2) Sepsis: Plan: Sepsis 2/2 gastro enteritis of norovirus Met sepsis criteria on admission, sepsis now resolved Viral etiology, antibiotics deferred -covid negative (3) Dehydration: Plan: Replete (4) Steroid dependence: Plan: - Resume 8mg prednisone/day for SLE. 12/12/21 -did recieve stress dose steroids during admission. (5) Sinus tachycardia: Plan: -history of such, on beta ernie- metoprolol 50mg BID. -has seen Dr Joaquin Baum for this in 2020. -previous echo 2020 with preserved LV Fx. -TSH wnl 2020. -Hemoglobin wnl. -Overall continued dose reduced at 25 twice daily dose (6) Morbid obesity with BMI of 40.0-44.9, adult: Plan: BMI about 40 patient may be with dysfunctional uterine bleeding from endometrial thickening due to her obesity we will check a (7) HTN (hypertension): Plan: - Continue to hold Aldactone, lisinopril, and continue dose reduce metoprolol. 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 -cont prophylactic fluconazole M/W/F 100 mg Stress dose hydrocortisone, now did resume prednisone (10) Recurrent pulmonary embolism: Plan: -on coumadin -INR therapeutic -Patient having some vaginal bleeding , hgb stable trans vag u/s no abnormalties, maybe breakthru, will restart coumadin 12/12/21 (11) GERD (gastroesophageal reflux disease): Plan: PPI/H2 as above, plus Carafate before every meal nightly (12) Hypothyroidism: Plan: TSH 0.3 in 08/2021 cont synthroid (13) Vaginal discharge: Plan: Patient with now bleeding vaginally, trans vag u/s does not suggest endometrial overgrowth If the bleeding continues may consider SALES MARKET LEADER evaluation, or to discuss alte rnatives to depoprovera Her anemia at this point time is considered to be anemia of chronic disease not acute blood loss anemia although she is may be having her menses only minor low iron and nromal iron binding capacity, suggested increased dieatary intake of iron has seen hematology in the past Admission and Anticipated Discharge Date Admission Date: December 11, 2021 Subjective pt is improving every day but today is feeling tremulous/shakey and weakened, still some stomach pain , diarrhea has lessened Review of Systems Review of Systems: Mild to moderate distress and fatigue no headache, no visual changes no speech or swallowing issues no chest pain, pressure or palpitations no shortness of breath, cough or wheezes resolving abdominal pain, mild nausea without vomiting lessening vaginal bleeding no dysuria, hematuria or frequency no focal joint pain or swelling no back pain, CVA tenderness or radicular pain no bruising, bleeding or rashes no focal signs of weakness or numbness or altered sensation tremulous which maybe anxiety Physical Exam Physical Exam: The patient appeared well nourished and normally developed. Vital signs as documented. Head exam is normocephalic atraumatic Neck is without JVD, thyromegaly, or carotid bruits. Lungs are clear to auscultation, no focal loss of breath sounds Cardiac exam, Rhythm is regular.. No murmurs, rubs or gallops. Abdominal exam reveals normal bowel sounds, soft mild epigastric tenderness Extremities are nonedematous and both pedal pulses are present Neurologic exam is alert and oriented, no focal loss of strength or sensation Skin is without bruises or rashes Psychologically is without concerns for anxiety or depression.. Results & Data Results & Data ([facility]) Vital Signs (Past 12 Hours) Vital Signs Temp Pulse Resp BP Pulse Ox 12/12/21 15:01 99.0 F 92 H 16 112/74 95 12/12/21 09:31 88 127/82 12/12/21 07:31 99.0 F 78 16 103/67 98 PG Care Time/CCT Total # of Minutes Spent Total Time Spent with Patient: Total time spent is greater than 50% in coordination of care (as documented) at patient's floor/unit and/or counseling patient: Coding Level of Care Code 49902 Subseq Hosp Care Lvl 3 Diagnoses Enteritis K52.9 Sepsis A41.9 Dehydration E86.0 Steroid dependence F19.20 Sinus tachycardia R00.0 Morbid obesity with BMI of 40.0-44.9, adult E66.01; Z68.41 HTN (hypertension) I10 FELECIA (obstructive sleep apnea) G47.33 Lupus M32.9 Recurrent pulmonary embolism I26.99 GERD (gastroesophageal reflux disease) K21.9 Hypothyroidism E03.8; E06.3 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
[2021-12-12] MEDS: NORTRIPTYLINE HCL 25 MG CAP PO SCH (20:19)
[2021-12-12] MEDS ORDERED: CYCLOBENZAPRINE HCL 10 MG TAB PO STA (20:26)
[2021-12-12] MEDS: PROMETHAZINE HCL 12.5 MG in SODIUM CHLORIDE 0.9% 50 ML IV PRN (21:47)
[2021-12-13] MEDS: LEVOTHYROXINE SODIUM 150 MCG TABLET PO SCH (06:05)
[2021-12-13 06:18] LABS: Hematocrit (blood only) 32.5 % (37-47); Hemoglobin 10.8 g/dL (12.0-16.0); Mean Corpuscular Hemoglobin 28.6 pg (25-34); Mean Corpuscular Hgb Conc 33.2 g/dL (32-36); Mean Platelet Volume 8.8 fL (7.4-10.4); Platelet Count 268 K/uL (130-400); RDW Coefficient of Variation 15.1 % (11.5-14.5); RDW Standard Deviation 47.3 fL (36.4-46.3); Red Blood Count 3.78 M/uL (4.2-5.4); White Blood Count 5.76 K/uL (4.8-10.8)
[2021-12-13 06:29] LABS: INR 1.7 (0.9-1.1); Prothrombin Time 17.3 Seconds (9.0-12.0)
[2021-12-13 06:48] LABS: Albumin Globulin Ratio 1.6 (0.9-2); Albumin Level 3.3 gm/dl (3.4-5.0); BUN Creatinine Ratio 8.4 (10-20); Bilirubin,Total 0.9 mg/dl (0.2-1.0); Calcium 8.4 mg/dl (8.5-10.1); Creatinine Clr Calc Pharmacy 85.1 ml/min; Est GFR (African American) 79.6 ml/min; Est GFR (Non-African American) 68.6 ml/min; Globulin 2.1 gm/dl (2.5-4.0); Potassium 3.8 mmol/L (3.5-5.1); Total Protein 5.4 gm/dl (6.0-8.3)
[2021-12-13] MEDS: HYDROXYCHLOROQUINE SULFATE 200 MG TAB PO SCH (08:12)
[2021-12-13] MEDS: FAMOTIDINE 20 MG in SYRINGE 3 ML IV SCH (08:12)
[2021-12-13] MEDS: SUCRALFATE 1 GM TAB PO SCH ×2 (08:12→11:56)
[2021-12-13] MEDS: GABAPENTIN 600 MG TAB PO SCH (08:12)
[2021-12-13] MEDS: METOPROLOL SUCC 25MG EXT REL TAB PO SCH (08:12)
[2021-12-13] MEDS: MYCOPHENOLATE MOFETIL 250 MG CAP PO SCH (08:12)
[2021-12-13] MEDS: busPIRone 5 MG TAB PO SCH (08:12)
[2021-12-13] MEDS: FLUCONAZOLE 50 MG TAB PO SCH (08:12)
[2021-12-13] MEDS: PANTOprazole 40 MG TAB PO SCH (08:12)
[2021-12-13] MEDS: FLUTICASONE PROPIONATE NA SPR 16 GM BTL SCH (08:13)
[2021-12-13] MEDS ORDERED: predniSONE 5 MG TAB PO SCH (09:00)
[2021-12-13] MEDS ORDERED: predniSONE 1 MG TAB PO SCH (09:00)
--- NOTE | 2021-12-13 14:53 | Discharge Summary ---
Date of Service December 13, 2021 Admission HPI Per Admitting Provider 31yo female with steroid-dependent SLE, hypothyroidism, recurrent episodes of PE on chronic coumadin (managed by Dr Paco Padilla - [facility] Anticoagulation clinic), tachycardia on beta ernie therapy, and recent hospitalization for SIRS/sepsis 2nd to UTI presents with the acute onset of severe nausea, emesis, and diarrhea beginning at 0100 this am. Since the illness began she has been unable to eat/drink. She has felt dizzy with trying to stand or ambulate. Patient states that yesterday she was in her normal state of health and went to bed feeling fine. She has had no recent travel. Several family members did have a presumed viral gastroenteritis in the last 2 weeks (parents, others). She has two children under the age of 10 and both have been well. INR on 11/29/21 was 2. Coumadin schedule - 2.5mg on Thursday/Thursday; 5mg all other days. Upon ER presentation today initial systolic BP was <100, improving s/p copious IV hydration. Principal Diagnosis noro virus colitis abdominal pain secondary to norovirus iron deficiency anemia, menstrual bleeding Discharge Exam The patient appeared well Vital signs as documented. Lungs are clear to auscultation and appear unlabored Cardiac exam, Rhythm is regular.. No murmurs, rubs or gallops. Abdominal exam reveals normal bowel sounds, soft non tender, no masses Extremities are nonedematous and both pedal pulses are normal. Neurologic exam is alert and oriented, no focal loss of strength or sensation Skin is without bruises or rashes Psychologically is without concerns for anxiety or depression. Discharge Data Allergies Allergy/AdvReac Type Severity Reaction Status Date / Time egg Allergy Severe Anaphylaxis Verified 12/09/21 13:27 Penicillins Allergy Intermediate Rash Verified 12/09/21 13:27 Sulfa (Sulfonamide Allergy Mild Rash Verified 12/09/21 13:27 Antibiotics) metformin AdvReac Intermediate Diarrhea Verified 12/09/21 13:27 metoclopramide AdvReac Mild SHAKY Verified 12/09/21 13:27 Consultations 12/09/21 13:37 ED Decision to Admit Stat Ordered Studies 12/09/21 10:53 CT abd pelvis IV con only Stat 12/10/21 11:08 US venous doppler UE RT Routine 12/11/21 15:59 US pelvic complete Routine US transvaginal Routine Hospital Course (1) Enteritis: Gastroenteritis 2/2 norovirus, seems to be improving and nearing discharge CTA/P: Consistent with nonspecific enterocolitis. Status post cholecystectomy. Will return to famotidine at bedtime with Carafate AC at bedtime (2) Sepsis: Sepsis 2/2 gastro enteritis of norovirus Met sepsis criteria on admission, sepsis now resolved Viral etiology, antibiotics deferred -covid negative (3) Dehydration: Replete (4) Steroid dependence: - Resume 8mg prednisone/day for SLE. 12/12/21 -did recieve stress dose steroids during admission. (5) Sinus tachycardia: -history of such, on beta ernie- metoprolol 50mg BID. -has seen Dr Joaquin Baum for this in 2020. -previous echo 2020 with preserved LV Fx. -TSH wnl 2020. -Hemoglobin wnl. (6) Morbid obesity with BMI of 40.0-44.9, adult: BMI about 40 patient may be with dysfunctional uterine bleeding from endometrial thickening due to her obesity we will check a (7) HTN (hypertension): - Continue Aldactone, lisinopril, and metoprolol. 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 -cont prophylactic fluconazole M/W/F 100 mg Stress dose hydrocortisone, now did resume prednisone home dosing (10) Recurrent pulmonary embolism: -on coumadin -INR therapeutic -Patient having some vaginal bleeding , hgb stable trans vag u/s no abnormalties, maybe breakthru, will restart coumadin 12/12/21 follow up with coumadin clinic (11) GERD (gastroesophageal reflux disease): H2, plus Carafate before every meal nightly (12) Hypothyroidism: TSH 0.3 in 08/2021 cont synthroid (13) Vaginal discharge: Patient with now bleeding vaginally, trans vag u/s does not suggest endometrial overgrowth If the bleeding continues may consider SURGICAL TECHNOLOGY INSTRUCTOR evaluation, or to discuss alternatives to depoprovera Her anemia at this point time is considered to be anemia of chronic disease not acute blood loss anemia although she is may be having her menses only minor low iron and nromal iron binding capacity, suggested increased dieatary intake of iron has seen hematology in the past Total Time Total Time Spent Total Time Spent (In Minutes): It required greater than 30 minutes to prepare this patient for discharge Discharge Plan Discharge Items Patient Disposition: Home - Self-Care Reason For Visit: GASTROENTERITIS, DEHYDRATION Discharge Diagnosis: noro virus colitis abdominal pain secondary to norovirus iron deficiency anemia, menstral bleedgin Activity: Per Instructions section Activity Comment: slowly increase activity Non-emergency contact: Primary Care Provider and Specialist Call non-emergency contact if: your symptoms worsen and you have a fever Follow-up/Referrals: Chio Curran, [Primary Care Provider] - 12/23/21 11:10 am Diet: Regular and Lactose Intolerant Addtl Attending Provider Instructions: You will slowly continue to recover from your norovirus infection. You may consider adopting a lactose-free diet as it seemed that lactose-containing foods that exacerbate your abdominal complaints while you are hospitalized. You contact your primary care provider in the future if you wish to be tested further gastroenterology related issues with your digestion such as celiac etc. Resume your typical rheumatological medications and please schedule follow-up with rheumatology. As mentioned you are mildly iron deficient and you did have your menses while you are here. Discussion with your SURGICAL TECHNOLOGY INSTRUCTOR about alternatives to her Depo shot may be warranted. Continue have a good diet high in iron-containing foods which includes red meats and dark green vegetables Because of your menstrual bleeding here warfarin was held for a day at this point time it would be recommended that you take your warfarin at home at 5 mg a day including this day of November and have a INR check through your usual provider on December 16 Pending Studies at Discharge: No Stand-Alone Forms: My [id number], Smoking Cessation Medications and DC Order Prescriptions: Continued hydroxychloroquine [Plaquenil] 200 mg tablet 200 mg PO BID RF: 0 fluconazole 200 mg tablet 50 mg PO 3XWK RF: 0 Benlysta 200 mg/mL auto-injector 200 mg subcut WK RF: 0 prednisone 1 mg tablet 3 mg PO QAM RF: 0 mycophenolate mofetil [CellCept] 250 mg capsule 250 mg PO QAM RF: 0 warfarin 5 mg tablet See Rx Instructions PO UD Qty: 90 RF: 1 cholecalciferol (vitamin D3) [D3-50 Cholecalciferol] 1,250 mcg (50,000 unit) capsule 50,000 unit PO WK Qty: 14 RF: 0 albuterol sulfate 90 mcg/actuation aerosol powdr breath activated 1 inh inhalation QID PRN (Reason: shortness of breath or wheezing) Qty: 1 RF: 0 levothyroxine [Levoxyl] 150 mcg tablet 150 mcg PO QAM Qty: 30 RF: 3 Ajovy Autoinjector 225 mg/1.5 mL auto-injector 225 mg subcut MONTHLY Qty: 1.5 RF: 11 spironolactone 100 mg tablet 100 mg PO DAILY@1200 Qty: 30 RF: 6 potassium chloride 20 mEq tablet extended release 20 meq PO BID Qty: 60 RF: 6 sumatriptan succinate 50 mg tablet 50 mg PO DAILY PRN (Reason: Migraine Headache) Qty: 10 RF: 2 nortriptyline 25 mg capsule 25 mg PO HS RF: 0 multivitamin Tablet 1 tab PO HS RF: 0 ketoconazole 2 % shampoo 1 applic topical DIRECTED RF: 0 famotidine 40 mg tablet 40 mg PO HS RF: 0 omeprazole 20 mg Tablet,Delayed Release (Dr/Ec) 20 mg PO BID RF: 0 gabapentin 600 mg tablet 600 mg PO BID RF: 0 ondansetron 4 mg tablet,disintegrating 4 mg PO Q6H PRN (Reason: Nausea And Vomiting) RF: 0 metoprolol succinate [Toprol XL] 100 mg tablet extended release 24 hr 50 mg PO BID RF: 0 valacyclovir 1 gram tablet 2 mg PO BID RF: 0 sucralfate 1 gram tablet 1 g PO AC RF: 0 prednisone 5 mg tablet 5 mg PO QAM RF: 0 buspirone 10 mg tablet 10 mg PO BID RF: 0 mometasone 50 mcg/actuation spray,non-aerosol 1 spray INTRANASAL DAILY RF: 0 fluocinonide 0.05 % solution 1 applic TOPICAL DAILY RF: 0 lisinopril 5 mg tablet 5 mg PO HS RF: 0 Discharge Orders: Discharge Order (Routine); Ordered 12/13/21 Ordered By: Robbin Galloway Admission Data Admit Date/Time: 12/11/21 11:09 Attending Provider: Robbin Galloway Admit Provider: Kaamri Gardner Primary Care Provider: Chio Curran Other Providers: Kamari Gardner Other Interventions: Discharge Summary Assessment (RN) Last Done: 12/13/21 10:54 Coding Level of Care Code D/C DAY MANAGEMENT <30 MINS Diagnoses Enteritis K52.9 Sepsis A41.9 Dehydration E86.0 Steroid dependence F19.20 Sinus tachycardia R00.0 Morbid obesity with BMI of 40.0-44.9, adult E66.01; Z68.41 HTN (hypertension) I10 FELECIA (obstructive sleep apnea) G47.33 Lupus M32.9 Recurrent pulmonary embolism I26.99 GERD (gastroesophageal reflux disease) K21.9 Hypothyroidism E03.8; E06.3 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
== END 2021-12-13 13:59 | disposition home or self-care (01) | DRG 872 ==
LOC: ED 09:08 → 2S 09:08 → SUATTDRO 14:56 → 2S 16:12 → 3E 12-11 17:48
DX: Z82.49 Family history of ischemic heart disease and other diseases of the circulatory system; D63.8 Anemia in other chronic diseases classified elsewhere; F32.89 Other specified depressive episodes; E03.9 Hypothyroidism, unspecified; Z79.899 Other long term (current) drug therapy; E87.6 Hypokalemia; R00.0 Tachycardia, unspecified; Z86.711 Personal history of pulmonary embolism; Z79.01 Long term (current) use of anticoagulants; Z68.41 Body mass index [BMI] 40.0-44.9, adult; Z88.0 Allergy status to penicillin; K21.00 Gastro-esophageal reflux disease with esophagitis, without bleeding; M32.9 Systemic lupus erythematosus, unspecified; N89.8 Other specified noninflammatory disorders of vagina; D50.9 Iron deficiency anemia, unspecified; Z82.69 Family history of other diseases of the musculoskeletal system and connective tissue; Z20.822 Contact with and (suspected) exposure to COVID-19; E66.01 Morbid (severe) obesity due to excess calories; A41.89 Other specified sepsis; N93.9 Abnormal uterine and vaginal bleeding, unspecified; Z83.438 Family history of other disorder of lipoprotein metabolism and other lipidemia; Z88.8 Allergy status to other drugs, medicaments and biological substances; I10 Essential (primary) hypertension; Z88.2 Allergy status to sulfonamides; Z86.718 Personal history of other venous thrombosis and embolism; E86.0 Dehydration; M79.89 Other specified soft tissue disorders; Z91.012 Allergy to eggs; A08.11 Acute gastroenteropathy due to Norwalk agent; Z79.890 Hormone replacement therapy; Z79.52 Long term (current) use of systemic steroids; E55.9 Vitamin D deficiency, unspecified